=== PATIENT | female | born 1955 | race Hispanic/Latino ===

== ENCOUNTER 2018-02-23 07:55 | Inpatient (IN) | payer BC ==
[2018-02-23 08:07] VITALS: BMI 25.0
--- NOTE | 2018-02-23 08:50 | ED PDOC ---
Arrival/HPI - General Chief Complaint: High Blood Sugar Time Seen by Provider: 02/23/18 08:21 Historian: Patient - History of Present Illness Narrative History of Present Illness (Text): 02/23/18 08:35 62 year old female, whose PMH includes diabetes type I, and DKA, who presents to the emergency department complaining of DKA diagnosed by cruise ship medics prior to arrival. Patient reports taking her own insulin one day ago and states being pale, with nausea and intermittent dark brown vomiting. Patient denies chest pain, shortness of breath, fever, diarrhea, abdominal pain, dizziness, or other complaints. Additionally, she states her symptoms have improved compared to one day ago. Time/Duration: 24 hours Symptom Onset: Sudden Symptom Course: Improving Past Medical History - Provider Review Nursing Documentation Reviewed: Yes - Cardiac Hx Cardiac Disorders: No - Pulmonary Hx Respiratory Disorders: No - Neurological Hx Neurological Disorder: No - HEENT Hx HEENT Disorder: No - Renal Hx Renal Disorder: No - Endocrine/Metabolic Hx Diabetes Mellitus Type 1: Yes Other/Comment: DKA - Hematological/Oncological Hx Blood Disorders: No - Integumentary Hx Dermatological Disorder: No - Musculoskeletal/Rheumatological Hx Musculoskeletal Disorders: No - Gastrointestinal Hx Gastrointestinal Disorders: No - Genitourinary/Gynecological Hx Genitourinary Disorders: No - Psychiatric Hx Psychophysiologic Disorder: No Hx Substance Use: No - Surgical History Other/Comment: OOphorectomy left. - Anesthesia Hx Anesthesia: No Family/Social History - Physician Review Nursing Documentation Reviewed: Yes Family/Social History: Unknown Family HX Smoking Status: Never Smoked Hx Alcohol Use: No Hx Substance Use: No Allergies/Home Meds Allergies/Adverse Reactions: Allergies No Known Allergies Allergy (Verified 02/23/18 08:10) Home Medications: Home Meds Medication Instructions Recorded Confirmed Insulin Glargine, Recombina 0 unit SC DAILY 02/23/18 02/23/18 [Lantus] Insulin Lispro [humALOG] 0 unit SC DAILY 02/23/18 02/23/18 Ramipril [Altace] 0 mg PO DAILY 02/23/18 02/23/18 diltiaZEM [Cardizem] 0 mg PO DAILY 02/23/18 02/23/18 Review of Systems - Physician Review All systems were reviewed & negative as marked: Yes - Review of Systems Constitutional: absent: Fevers Respiratory: absent: SOB Gastrointestinal: Nausea, Vomiting Skin: Other (pale ) Physical Exam - Physical Exam Narrative Physical Exam (Text): 02/23/18 Gen: VS reviewed, alert, well developed, well nourished, nontoxic, mild distress. ENT: (+) dry mucous membrane. normal pharynx. Eye: EOMI, PERRL. Neck: no JVD, supple, no adenopathy. CV: regular rate, regular rhythm, no rubs, no murmur, no gallops, S1, S2, pulses equal and strong. Pulm: no distress, clear to auscultation, no wheeze, no rhonchi, breath sounds equal, no rales. Abd: soft, nontender, no guarding, no rebound, no rigidity, normal bowel sounds. Ext: no edema. Skin: good color, no rash, no cyanosis. Psych: responds appropriately to questions, normal affect. Neuro: oriented x 3, CN2-12 intact grossly, motor intact, sensation intact. Vital Signs Reviewed: Yes Vital Signs Temp Pulse Resp BP Pulse Ox 02/23/18 10:39 102 H 18 117/55 L 98 02/23/18 08:07 99.0 F 101 H 19 131/70 98 Temperature: Afebrile Blood Pressure: Normal Pulse: Tachycardic Respiratory Rate: Normal Appearance: Positive for: Well-Appearing, Non-Toxic, Comfortable Pain Distress: None Mental Status: Positive for: Alert and Oriented X 3 Finger Stick Blood Glucose: 188 Medical Decision Making ED Course and Treatment: 02/23/18 Impression: 62 year old female with dry mucous membrane complaining of vomiting and DKA symptoms. Differential Diagnosis included but are not limited to: DKA Plan: -- Labs -- Urinalysis -- Reassess and disposition Progress Notes: 02/23/18 11:30 Chest X-ray: FINDINGS: LINES AND TUBES: None. LUNG AND PLEURA: The lungs are hyperinflated. There is mild peribronchial thickening and streaky opacities in the lungs. No pleural effusion or pneumothorax. HEART AND MEDIASTINUM: The heart is not enlarged. The hilar and mediastinal contours are within normal limits. SKELETAL STRUCTURES: The bony structures are within normal limits for the patient's age. VISUALIZED UPPER ABDOMEN: Normal. OTHER FINDINGS: None. IMPRESSION: No active pulmonary disease. COPD. 02/23/18 11:[address] turk, patient to be admitted for ivf, mild dehydration, persistent tachycardia, presumed new lbbb but no cardiopulmonary symptoms. patient did have a lbbb on ekg during cruise with a negative troponin. - Lab Interpretations Lab Results: 02/23/18 09:02 02/23/18 09:02 Lab Results 02/23/18 09:05: pCO2 31 L, pO2 70.0 L, HCO3 17.5 L, ABG pH 7.36, ABG Total CO2 18.5 L, ABG O2 Saturation 96.7, ABG O2 Content 13.9 L, ABG Base Excess -7.0 L, ABG Hemoglobin 10.4 L, ABG Carboxyhemoglobin 1.4, POC ABG HHb (Measured) 3.2, ABG Methemoglobin 1.0, ABG O2 Capacity 14.4 L, Hgb O2 Saturation 94.5 L, FiO2 21.0 02/23/18 09:02: Sodium 141, Potassium 4.0, Chloride 110 H, Carbon Dioxide 17 L, Anion Gap 18, BUN 13, Creatinine 0.5 L, Est GFR ( Amer) > 60, Est GFR ( Non-Af Amer) > 60, Random Glucose 188 H, Calcium 7.9 L, Total Bilirubin 0.4, AST 18, ALT 24, Alkaline Phosphatase 58, Total Protein 6.3, Albumin 3.5, Globulin 2.7, Albumin/Globulin Ratio 1.3 02/23/18 09:02: Urine Color Light yellow, Urine Appearance Clear, Urine pH 6.0, Ur Specific [place] 1.025, Urine Protein Negative, Urine Glucose (UA) >=1000, Urine Ketones >=80, Urine Blood Negative, Urine Nitrate Negative, Urine Bilirubin Negative, Urine Urobilinogen 0.2, Ur Leukocyte Esterase Negative 02/23/18 09:02: WBC 15.0 H, RBC 3.60, Hgb 10.5 L, Hct 31.9 L, MCV 88.6, MCH 29.2 , MCHC 32.9, RDW 13.8, Plt Count 149, MPV 12.1 H, Gran % 89.1 H, Lymph % (Auto) 7.3 L, [place] % (Auto) 3.5, Eos % (Auto) 0.0 L, Baso % (Auto) 0.1, Gran # 13.36 H , Lymph # (Auto) 1.1 L, [place] # (Auto) 0.5, Eos # (Auto) 0.0, Baso # (Auto) 0.02 02/23/18 08:00: POC Glucose (mg/dL) 188 H I have reviewed the lab results: Yes - RAD Interpretation Radiology Orders: 02/23/18 10:49 X-RAY [CHEST TWO VIEWS (PA/LAT)] [RAD] Stat - EKG Interpretation EKG Interpretation (Text): 02/23/18 11:59 0820: sinus tachycardia at 107 bpm, lbbb, no ectopy 1155: sinus tachycardia at 106 bpm, lbbb, no ectopy - Medication Orders Current Medication Orders: Sodium Chloride (Sodium Chloride 0.9%) 1,000 mls @ 999 mls/hr IV .[id number] STA Stop: 02/23/18 12:52 - Scribe Statement The provider has reviewed the documentation as recorded by the Scribe Brandie Willis Provider Scribe Attestation: All medical record entries made by the Scribe were at my direction and personally dictated by me. I have reviewed the chart and agree that the record accurately reflects my personal performance of the history, physical exam, medical decision making, and the department course for this patient. I have also personally directed, reviewed, and agree with the discharge instructions and disposition. Disposition/Present on Arrival - Present on Arrival Any Indicators Present on Arrival: No History of DVT/PE: No History of Uncontrolled Diabetes: No Urinary Catheter: No History of Decub. Ulcer: No History Surgical Site Infection Following: None - Disposition Have Diagnosis and Disposition been Completed?: Yes Diagnosis: Dehydration Disposition: HOSPITALIZED Disposition Time: 11:53 Patient Plan: Admission Patient Problems: Current Active Problems Problem Status Onset Dehydration Acute Condition: GOOD Forms: [employer] ([place]an)
[2018-02-23 09:08] LABS: ARTERIAL BLOOD GAS HCO3 17.5 mmol/L (21-28); ARTERIAL BLOOD GAS HEMOGLOBIN 10.4 g/dL (11.7-17.4); ARTERIAL BLOOD GAS O2 CAPACITY 14.4 mL/dl (16-24); ARTERIAL BLOOD GAS O2 CONTENT 13.9 ML/dl (15-23); ARTERIAL BLOOD GAS O2 SAT 96.7 % (95-98); ARTERIAL BLOOD GAS PCO2 31 mm/Hg (35-45); ARTERIAL BLOOD GAS PH 7.36 (7.35-7.45); ARTERIAL BLOOD GAS TCO2 18.5 mmol.L (22-28)
[2018-02-23 09:19] LABS: URINE BILIRUBIN NEGATIVE (NEGATIVE); URINE BLOOD NEGATIVE (NEGATIVE); URINE GLUCOSE (UA) >=1000 mg/dL (NEGATIVE); URINE LEUKOCYTE ESTERASE NEGATIVE Leu/uL (NEGATIVE); URINE PROTEIN NEGATIVE mg/dL (<30 mg/dL); URINE UROBILINOGEN 0.2 E.U./dL (<1 E.U./dL)
[2018-02-23 09:20] LABS: URINE APPEARANCE CLEAR (CLEAR); URINE COLOR LIGHT YELLOW (YELLOW)
[2018-02-23 09:21] LABS: BASO # 0.02 K/mm3 (0.0-2.0); BASO % 0.1 % (0.0-3.0); GRAN # 13.36 (1.4-6.5); GRAN % 89.1 % (50.0-68.0); HEMOGLOBIN 10.5 g/dL (12.0-16.0); LYMPH # 1.1 (1.2-3.4); LYMPH % 7.3 % (22.0-35.0); MEAN CELL VOLUME 88.6 fl (80.0-105.0); MEAN CORPUSCULAR HEMOGLOBIN 29.2 pg (25.0-35.0); MEAN CORPUSCULAR HGB CONC 32.9 g/dl (31.0-37.0); MEAN PLATELET VOLUME 12.1 fl (7.0-11.0); MONO # 0.5 (0.1-0.6); MONO % 3.5 % (1.0-6.0); RBC 3.6 10^6/uL (3.5-6.1); RED CELL DISTRIBUTION WIDTH 13.8 % (11.5-14.5)
[2018-02-23 09:32] LABS: ALB/GLOB RATIO 1.3 (1.1-1.8); ALBUMIN 3.5 g/dL (3.0-4.8); ALT/SGPT 24 U/L (7-56); AST/SGOT 18 U/L (14-36); BLOOD UREA NITROGEN 13 mg/dL (7-21); CALCIUM 7.9 mg/dL (8.4-10.5); GFR AFRICAN-AMERICAN > 60; GFR NON-AFRICAN AMERICAN > 60
--- NOTE | 2018-02-23 11:29 | RAD ---
HISTORY: COMPARISON: No prior. TECHNIQUE: Chest PA and lateral FINDINGS: LINES AND TUBES: None. LUNG AND PLEURA: The lungs are hyperinflated. There is mild peribronchial thickening and streaky opacities in the lungs. No pleural effusion or pneumothorax. HEART AND MEDIASTINUM: The heart is not enlarged. The hilar and mediastinal contours are within normal limits. SKELETAL STRUCTURES: The bony structures are within normal limits for the patient's age. VISUALIZED UPPER ABDOMEN: Normal. OTHER FINDINGS: None. IMPRESSION: No active pulmonary disease. COPD.
[2018-02-23] MEDS ORDERED: Sodium Chloride 0.9% 1,000 ML IV STA (11:52)
[2018-02-23] MEDS ORDERED: Sodium Chloride 0.45% 1,000 ML IV SCH (12:15)
[2018-02-23] MEDS: Cefepime IV 2 gm in NS 2 GM/100 ML BAG IVPB SCH ×2 (14:55→21:25)
[2018-02-23] MEDS: Sodium Chloride 0.45% 1,000 ML IV SCH ×2 (14:56→20:53)
--- NOTE | 2018-02-23 15:06 | HP ---
HISTORY OF PRESENT ILLNESS: She is off the cruise ship. She was here in the emergency room. She came from the the cruise ship with a complaint of DKA diagnosed in the cruise ship. She is doing little bit better since the cruise ship. She is pale, little nauseousness, intermittent dark brown vomiting, but that seemed to be improved. She might have a little bit of an appetite. PAST MEDICAL HISTORY: Diabetes type 1, DKA in the past. She had an oophorectomy and the left side surgical wires. FAMILY HISTORY: Unknown family history. SOCIAL HISTORY: Never smoked. No alcohol. No drugs. ALLERGIES: NO KNOWN DRUG ALLERGIES. MEDICATIONS: She is on Lantus, Humalog, Altace and Cardizem for the blood pressure. REVIEW OF SYSTEMS: No acute vision or hearing changes. No sore throat. No chest pain. No shortness of breath. No cough. No palpitations. There is nausea and vomiting. No abdominal pain. No fevers. Skin for the most part is intact, but she is pale. PHYSICAL EXAMINATION: VITAL SIGNS: She has a 99 temperature, 102 pulse, 18 respiratory rate, 117/55 blood pressure, 98% O2 sat on room air. GENERAL: She is alert and oriented x3. Well-nourished, nontoxic, mild distress. HEENT: Throat is mildly red. Extraocular muscles are intact. Pupils are equal and reactive to light. NECK: Supple. No JVD. HEART: Regular rate. Normal S1, S2. LUNGS: Decreased breath sounds, but clear to auscultation. No wheezes. No rhonchi. No rales. ABDOMEN: Soft, nontender. Positive bowel sounds. No guarding. No rebound. No CVA tenderness at this time. EXTREMITIES: No edema. SKIN: For the most part is intact. No ulcers or rashes appreciated. NEUROLOGIC: GCS is 15. Cranial nerves II-XII grossly intact. Sensorimotor is intact. LYMPHATICS: Thyroid midline. No palpable appreciable lymphadenopathy. LABORATORY DATA AND IMAGING: She had a chest x-ray that showed clear possible COPD. She has a 15 white count elevated, 10.5 hemoglobin, 31.9 hematocrit with a 129 platelets. The blood gas showed a pO2 of 70, pH of 7.36. She has a 141 sodium, potassium 4, BUN 13, creatinine 0.5, GFR is greater than 60, sugar is 188, calcium is 7.9. Total bili is 0.4, AST is 18, ALT is 24, alk phos is 58, total protein 6.3, albumin is 2.5. Urine is clean. She will have a consult with Dr. Gutierrez, the vice president planning and Dr. Ochoa, Infectious Disease doctors. She is on IV fluids. She will have her medications back. We will check her labs tomorrow and hopefully, she will improve. She will have some Zofran, just in case she is nauseous as she can eat the food. Freya Dusty, who is from the cruise ship with DKA from the cruise ship was now finishing her improvement from that. Alberto Hernandez DO
[2018-02-23] MEDS ORDERED: Insulin Reg-MEDIUM-Coverage SC SCH (16:30)
[2018-02-23] MEDS ORDERED: Insulin Lispro 1 UNITS/0.01 ML SC SCH (16:30)
[2018-02-23] MEDS: Insulin Lispro (humaLOG) LOW Coverage SC SCH ×2 (17:27→21:22)
--- NOTE | 2018-02-23 19:32 | CARD ---
APPROVED REPORT Date of service: 02/23/2018 EKG Measurement Heart [id number] IN [id number] <Conclusion> Sinus tachycardia Left axis deviation Left bundle branch block Abnormal ECG
--- NOTE | 2018-02-23 19:46 | CARD ---
APPROVED REPORT Date of service: 02/23/2018 EKG Measurement Heart [id number] <Conclusion> Sinus tachycardia Left axis deviation Left bundle branch block Abnormal ECG
--- NOTE | 2018-02-23 20:30 | CON ---
DATE: 02/23/2018 ENDOCRINOLOGY CONSULT LOCATION: [facility], [facility]. HISTORY OF PRESENT ILLNESS: This is a 62-year-old female with known history of type 1 insulin-dependent diabetes, who was actually on the cruise ship and started having upper abdominal pain with supervening episodic vomiting episodes with nausea and dyspepsia and was evaluated by the cruise ship medical doctors to have diabetic ketoacidosis and dehydration and was referred here to [facility] for workup and management. She is being referred now also for diabetic evaluation and management. PAST MEDICAL HISTORY: As mentioned above, history of type 1 insulin-dependent diabetes, on a combination of Lantus given at bedtime with Humalog given before each meal as noted. History of hypertension and dyslipidemia. FAMILY HISTORY: Positive for hypertension and heart disease. SOCIAL HISTORY: The patient has supportive family. No known substance use. REVIEW OF SYSTEMS: As mentioned above. Admits to recent bouts of dizziness and lightheadedness, worse on the day of admission with generalized body weakness and easy fatigability and tiredness. No chest pains, palpitations, or PND. Her oral intake is variable with nausea, dyspepsia, and episodic vomiting episodes as noted. No recent alterations of bowel and urinary patterns. PHYSICAL EXAMINATION: GENERAL: Average-built female, in no apparent distress. VITAL SIGNS: Blood pressure of 150/90, pulse of 70 beats per minute and regular, temperature 98, respirations 20. Height is 5 feet 6 inches, weight is 157 pounds. HEENT: Head normocephalic. Eyes anicteric with pink conjunctivae. Funduscopy not possible at this time. Ears, nose, and throat otherwise normal. NECK: Supple. Thyroid gland is normal in size. No carotid bruits or cervical adenopathy. CARDIOPULMONARY: Some adynamic precordium. S1 and S2, rapid and regular. LUNGS: Clear to auscultation. ABDOMEN: Flat, soft with positive bowel sounds. EXTREMITIES: No peripheral edema. Pulses are +2 bilaterally. LABORATORY DATA: Chemistries showed BUN of 13. Sodium 141, potassium 4, chloride 110, CO2 is 17. Glucose is 188. Creatinine is 0.5. ASSESSMENT: This is a 62-year-old female with uncontrolled and decompensated type 1 insulin-dependent diabetes presenting here with sudden onset of episodic vomiting with nausea, dyspepsia, and upper abdominal pain and has been evaluated to be in diabetic ketoacidosis and dehydration. PLAN OF MANAGEMENT: We will initiate vigorous IV hydration at this time and the current IV fluids are running at 60 mL/hour and would increase it to 150 mL/hour to optimize her metabolic fluid and electrolyte losses thereof. She was able to tolerate lunch today. We will switch her over to a more physiologic basal and bolus insulin drug combination with Levemir to be started at 20 units subcu at bedtime daily to start tonight. We will also add Humalog given as 6 units subcu t.i.d. before meals at the very low dose and as her food intake improves, then we will titrate higher to optimize metabolic control. We will obtain serial chemistries and supplement accordingly as needed. We will also modify the coverage scale to a very low dose algorithm to obviate hypoglycemia and detailed orders have been given. We will obtain serial chemistries and supplement accordingly as needed. We will follow. Naye Gutierrez MD
[2018-02-23] MEDS ORDERED: Insulin Detemir 100 units/ml Vial (Levemir) SC SCH (22:00)
[2018-02-23] MEDS ORDERED: Pneumococcal 23-Valent Vaccine IM ONE (22:08)
[2018-02-23] MEDS: Vancomycin 1gm in NS 250ml 1 GM/250 ML BAG IVPB SCH (23:48)
[2018-02-24] MEDS: Sodium Chloride 0.45% 1,000 ML IV SCH (06:10)
[2018-02-24 06:36] LABS: BASO # 0.02 K/mm3 (0.0-2.0); BASO % 0.1 % (0.0-3.0); EOS % 0.1 % (1.5-5.0); GRAN # 15.2 (1.4-6.5); GRAN % 87.6 % (50.0-68.0); HEMOGLOBIN 11.1 g/dL (12.0-16.0); LYMPH # 1.5 (1.2-3.4); LYMPH % 8.4 % (22.0-35.0); MEAN CELL VOLUME 89.5 fl (80.0-105.0); MEAN CORPUSCULAR HEMOGLOBIN 29.2 pg (25.0-35.0); MEAN CORPUSCULAR HGB CONC 32.6 g/dl (31.0-37.0); MEAN PLATELET VOLUME 12.8 fl (7.0-11.0); MONO # 0.7 (0.1-0.6); MONO % 3.8 % (1.0-6.0); RBC 3.8 10^6/uL (3.5-6.1); RED CELL DISTRIBUTION WIDTH 14.3 % (11.5-14.5); WHITE BLOOD COUNT 17.3 10^3/ul (4.5-11.0)
[2018-02-24 07:00] LABS: ALB/GLOB RATIO 1.3 (1.1-1.8); ALBUMIN 3.7 g/dL (3.0-4.8); ALT/SGPT 24 U/L (7-56); AST/SGOT 29 U/L (14-36); BLOOD UREA NITROGEN 11 mg/dL (7-21); CALCIUM 8.2 mg/dL (8.4-10.5); GFR AFRICAN-AMERICAN > 60; GFR NON-AFRICAN AMERICAN > 60; HDL CHOLESTEROL 54 mg/dL (29-60); LIPASE < 10 U/L (23-300)
[2018-02-24 07:05] LABS: LDL CHOLESTEROL 108 mg/dL (0-129)
[2018-02-24] MEDS ORDERED: Sodium Chloride 0.45% 1,000 ML IV SCH (08:10)
[2018-02-24] MEDS: diltiaZEM 120 mg/24 Hours CD Cap PO SCH (09:24)
[2018-02-24] MEDS: Insulin Lispro 1 UNITS/0.01 ML SC SCH ×3 (09:24→19:37)
[2018-02-24] MEDS: Insulin Lispro (humaLOG) LOW Coverage SC SCH ×4 (09:26→21:39)
[2018-02-24] MEDS: Cefepime IV 2 gm in NS 2 GM/100 ML BAG IVPB SCH ×2 (09:27→22:12)
[2018-02-24] MEDS ORDERED: DILTIAZEM 120 MG PO SCH (10:00)
--- NOTE | 2018-02-24 12:14 | CP.PCM.CON ---
History of Present Illness - History of Present Illness History of Present Illness: 62 year old male with PMH of DM type I with history of Diabetic ketoacidosis was on the cruise ship when she started having nausea, vomiting bilous material , tremolousness, weakness for a day. She was attended by medical staff there and was foundto be hyperglycemic. She denies fever or chills, no diarrhea, denies animal contacts or insect bites, no headache or dizziness, no blurring of vision, no dysuria, no SOB, no cough, no sore throat. She was noted to have leukocytosis in the ED and Infectious Diseases consult is requested to further evaluate and manage. The patient is having some retrosternal discomfort from all the vomiting but now is not vomiting anymore. Review of Systems - Review of Systems All systems: reviewed and no additional remarkable complaints except (as per HPI ) Past Patient History - Past Social History Smoking Status: Never Smoked - CARDIAC Hx Cardiac Disorders: No - PULMONARY Hx Respiratory Disorders: No - NEUROLOGICAL Hx Neurological Disorder: No - HEENT Hx HEENT Problems: No - RENAL Hx Chronic Kidney Disease: No - ENDOCRINE/METABOLIC Hx Diabetes Mellitus Type 1: Yes Other/Comment: DKA - HEMATOLOGICAL/ONCOLOGICAL Hx Blood Disorders: No - INTEGUMENTARY Hx Dermatological Problems: No - MUSCULOSKELETAL/RHEUMATOLOGICAL Hx Musculoskeletal Disorders: No - GASTROINTESTINAL Hx Gastrointestinal Disorders: No - GENITOURINARY/GYNECOLOGICAL Hx Genitourinary Disorders: No - PSYCHIATRIC Hx Psychophysiologic Disorder: No Hx Substance Use: No - SURGICAL HISTORY Other/Comment: OOphorectomy left. - ANESTHESIA Hx Anesthesia: No Meds Allergies/Adverse Reactions: Allergies Allergy/AdvReac Type Severity Reaction Status Date / Time No Known Allergies Allergy Verified 02/23/18 20:12 - Medications Medications: Current Medications Diltiazem HCl (Cardizem Cd) 120 mg PO DAILY [facility] Sodium Chloride (Sodium Chloride 0.45%) 1,000 mls @ 60 mls/hr IV .[id number] [facility] Last Admin: 02/23/18 12:25 Dose: 60 mls/hr Insulin Human Regular (Humulin R Med) 0 units SC ACHS [facility] PRN Reason: Protocol Ondansetron HCl (Zofran Inj) 4 mg IVP Q6 PRN PRN Reason: Nausea/Vomiting Ramipril (Altace) 1.25 mg PO DAILY [facility] Physical Exam - Constitutional Appears: Non-toxic - Head Exam Head Exam: NORMAL INSPECTION - ENT Exam ENT Exam: Mucous Membranes Moist - Neck Exam Neck exam: Negative for: Meningismus - Respiratory Exam Respiratory Exam: absent: Rales, Rhonchi - Cardiovascular Exam Cardiovascular Exam: +S1, +S2 - GI/Abdominal Exam GI & Abdominal Exam: Soft. absent: Tenderness Results - Vital Signs Recent Vital Signs: Last Vital Signs Temp 99.0 F 02/23/18 08:07 Pulse 102 H 02/23/18 10:39 Resp 18 02/23/18 10:39 BP 117/55 L 02/23/18 10:39 Pulse Ox 98 02/23/18 10:39 - Labs Result Diagrams: 02/24/18 05:45 02/24/18 05:45 Assessment & Plan - Assessment and Plan (Free Text) Plan: Assessment systemic inflammatory response syndrome probably due hyperglycemia R/O DKA in this patient with DM type I with history of Diabetic ketoacidosis, R/O infection Plan started Vancomycin and cefepime pending blood, urine cx; CXR is negative, PCT is elevated but so far no source of infection noted will monitor clinically and trend blood glucose levels and WBC count discussed with Dr. Hernandez
[2018-02-24] MEDS: Vancomycin 1gm in NS 250ml 1 GM/250 ML BAG IVPB SCH (13:21)
--- NOTE | 2018-02-24 13:44 | CP.PCM.CON ---
<HelioLenmaurilio - Last Filed: 02/24/18 13:39> History of Present Illness - History of Present Illness History of Present Illness: PGY-4 GI Fellow Consult Note Mrs. Montano is a 62 yo WF with DM1 admitted for DKA. GI consulted for nausea and vomiting. Pt states that whenever she is in DKA she frequently has severe N /V. She states symptoms seem to be lingering on longer than before. States emesis is usually consisting of PO intake or occasionally green. Denies any bloody or bilious emesis. States she has bowel movements and continues to pass gas. Has been on ondansetron and metoclopramide to help with symptoms. Denies any melena, hematochezia and states that she has never had any endoscopies before. 12 point ROS negative other than stated above MHx: DM1 SurgHx: Csection Meds: lantus, humalog, cardizem FamHx: Denied h/o gi problems/ca SocHx: Denied tob, etoh, ill All: NKDA Past Patient History - Past Social History Smoking Status: Never Smoked - CARDIAC Hx Cardiac Disorders: No - PULMONARY Hx Respiratory Disorders: No - NEUROLOGICAL Hx Neurological Disorder: No - HEENT Hx HEENT Problems: No - RENAL Hx Chronic Kidney Disease: No - ENDOCRINE/METABOLIC Hx Diabetes Mellitus Type 1: Yes Other/Comment: DKA - HEMATOLOGICAL/ONCOLOGICAL Hx Blood Disorders: No - INTEGUMENTARY Hx Dermatological Problems: No - MUSCULOSKELETAL/RHEUMATOLOGICAL Hx Musculoskeletal Disorders: No - GASTROINTESTINAL Hx Gastrointestinal Disorders: No - GENITOURINARY/GYNECOLOGICAL Hx Genitourinary Disorders: No - PSYCHIATRIC Hx Psychophysiologic Disorder: No Hx Substance Use: No - SURGICAL HISTORY Other/Comment: OOphorectomy left. - ANESTHESIA Hx Anesthesia: No Meds Allergies/Adverse Reactions: Allergies Allergy/AdvReac Type Severity Reaction Status Date / Time No Known Allergies Allergy Verified 02/23/18 20:12 - Medications Medications: Current Medications Diltiazem HCl (Cardizem Cd) 120 mg PO DAILY [facility] Last Admin: 02/24/18 09:24 Dose: 120 mg Cefepime HCl (Maxipime 2gm) 2 gm in 100 mls @ 100 mls/hr IVPB Q12 [facility] PRN Reason: Protocol Stop: 02/28/18 12:46 Last Admin: 02/24/18 09:27 Dose: 100 mls/hr Vancomycin HCl (Vancomycin 1gm) 1 gm in 250 mls @ 167 mls/hr IVPB Q12H [facility] PRN Reason: Protocol Last Admin: 02/24/18 13:21 Dose: 167 mls/hr Sodium Chloride (Sodium Chloride 0.45%) 1,000 mls @ 200 mls/hr IV .Q5H [facility] Last Admin: 02/24/18 13:30 Dose: 200 mls/hr Insulin Detemir (Levemir) 24 unit SC [facility] Insulin Human Lispro (Humalog Low) 0 units SC [facility] PRN Reason: Protocol Last Admin: 02/24/18 13:20 Dose: Not Given Insulin Human Lispro (Humalog) 10 units SC AC [facility] Last Admin: 02/24/18 13:18 Dose: Not Given Metoclopramide HCl (Reglan) 10 mg IVP ACHS [facility] Last Admin: 02/24/18 11:02 Dose: 10 mg Metoprolol Tartrate (Lopressor) 12.5 mg PO BRKDIN [facility] Ondansetron HCl (Zofran Inj) 4 mg IVP Q6 PRN PRN Reason: Nausea/Vomiting Last Admin: 02/23/18 19:59 Dose: 4 mg Ramipril (Altace) 1.25 mg PO DAILY [facility] Last Admin: 02/24/18 09:23 Dose: 1.25 mg Physical Exam - Constitutional Appears: Well, Non-toxic, No Acute Distress - Head Exam Head Exam: ATRAUMATIC, NORMAL INSPECTION - Eye Exam Eye Exam: EOMI. absent: Conjunctival injection, Scleral icterus - ENT Exam ENT Exam: Mucous Membranes Moist, Normal External Ear Exam - Respiratory Exam Respiratory Exam: Clear to Auscultation Bilateral, NORMAL BREATHING PATTERN. absent: Accessory Muscle Use - Cardiovascular Exam Cardiovascular Exam: REGULAR RHYTHM. absent: JVD - GI/Abdominal Exam GI & Abdominal Exam: Normal Bowel Sounds, Soft. absent: Distended, Firm, Rigid , Tenderness - Rectal Exam Rectal Exam: Deferred - Extremities Exam Extremities exam: Positive for: normal inspection. Negative for: pedal edema - Neurological Exam Neurological exam: Alert, CN II-XII Intact, Oriented x3 - Psychiatric Exam Psychiatric exam: Normal Affect, Normal Mood - Skin Skin Exam: Intact, Normal Color Results - Vital Signs Recent Vital Signs: Last Vital Signs Temp 97.7 F 02/24/18 06:00 Pulse 108 H 02/24/18 10:00 Resp 20 02/24/18 06:00 BP 137/76 02/24/18 09:23 Pulse Ox 97 02/24/18 06:00 - Labs Result Diagrams: 02/24/18 05:45 02/24/18 05:45 Labs: Laboratory Results - last 24 hr 02/23/18 02/23/18 02/23/18 13:56 16:41 21:13 WBC RBC Hgb Hct MCV MCH MCHC RDW Plt Count MPV Gran % Lymph % (Auto) [place] % (Auto) Eos % (Auto) Baso % (Auto) Gran # Lymph # (Auto) [place] # (Auto) Eos # (Auto) Baso # (Auto) Sodium Potassium Chloride Carbon Dioxide Anion Gap BUN Creatinine Est GFR ( Amer) Est GFR (Non-Af Amer) POC Glucose (mg/dL) 195 H 312 H Random Glucose Hemoglobin A1c Calcium Total Bilirubin AST ALT Alkaline Phosphatase Total Protein Albumin Globulin Albumin/Globulin Ratio Triglycerides Cholesterol LDL Cholesterol Direct HDL Cholesterol Lipase Procalcitonin 2.95 H TSH 3rd Generation Cortisol AM Sample 02/24/18 02/24/18 02/24/18 02:08 05:45 05:45 WBC 17.3 H RBC 3.80 Hgb 11.1 L Hct 34.0 L MCV 89.5 MCH 29.2 MCHC 32.6 RDW 14.3 Plt Count 185 MPV 12.8 H Gran % 87.6 H Lymph % (Auto) 8.4 L [place] % (Auto) 3.8 Eos % (Auto) 0.1 L Baso % (Auto) 0.1 Gran # 15.20 H Lymph # (Auto) 1.5 [place] # (Auto) 0.7 H Eos # (Auto) 0.0 Baso # (Auto) 0.02 Sodium 139 Potassium 5.0 Chloride 109 H Carbon Dioxide 13 L Anion Gap 22 H BUN 11 Creatinine 0.6 L Est GFR ( Amer) > 60 Est GFR (Non-Af Amer) > 60 POC Glucose (mg/dL) 241 H Random Glucose 235 H Hemoglobin A1c Calcium 8.2 L Total Bilirubin 0.6 AST 29 ALT 24 Alkaline Phosphatase 67 Total Protein 6.6 Albumin 3.7 Globulin 2.9 Albumin/Globulin Ratio 1.3 Triglycerides 106 Cholesterol 189 LDL Cholesterol Direct 108 HDL Cholesterol 54 Lipase < 10 L Procalcitonin TSH 3rd Generation Cortisol AM Sample 02/24/18 02/24/18 02/24/18 05:45 05:45 05:45 WBC RBC Hgb Hct MCV MCH MCHC RDW Plt Count MPV Gran % Lymph % (Auto) [place] % (Auto) Eos % (Auto) Baso % (Auto) Gran # Lymph # (Auto) [place] # (Auto) Eos # (Auto) Baso # (Auto) Sodium Potassium Chloride Carbon Dioxide Anion Gap BUN Creatinine Est GFR ( Amer) Est GFR (Non-Af Amer) POC Glucose (mg/dL) Random Glucose Hemoglobin A1c 10.1 H Calcium Total Bilirubin AST ALT Alkaline Phosphatase Total Protein Albumin Globulin Albumin/Globulin Ratio Triglycerides Cholesterol LDL Cholesterol Direct HDL Cholesterol Lipase Procalcitonin TSH 3rd Generation 0.67 Cortisol AM Sample 29.8 H 02/24/18 02/24/18 07:39 11:42 WBC RBC Hgb Hct MCV MCH MCHC RDW Plt Count MPV Gran % Lymph % (Auto) [place] % (Auto) Eos % (Auto) Baso % (Auto) Gran # Lymph # (Auto) [place] # (Auto) Eos # (Auto) Baso # (Auto) Sodium Potassium Chloride Carbon Dioxide Anion Gap BUN Creatinine Est GFR ( Amer) Est GFR (Non-Af Amer) POC Glucose (mg/dL) 211 H 152 H Random Glucose Hemoglobin A1c Calcium Total Bilirubin AST ALT Alkaline Phosphatase Total Protein Albumin Globulin Albumin/Globulin Ratio Triglycerides Cholesterol LDL Cholesterol Direct HDL Cholesterol Lipase Procalcitonin TSH 3rd Generation Cortisol AM Sample Assessment & Plan - Assessment and Plan (Free Text) Assessment: 62 yo female with DM1 admitted for DKA, GI consulted for N/V. # Nausea and vomiting: Likely due to DKA. Pt with strong h/o DKA associated N/ V. No imaging, but agree none is warranted at this time as abd soft and passing gas. Suspect continuing to treat DKA with eventually resolve symptoms. Plan: - Cont to treat DKA as you are - Cont ondansetron, can increased frequency --- If prolong use, would periodically monitor QTC - Cautious metoclopramide use - Consider discontinuing antibiotics as could worsen N/V and lead to further GI complications Thank you for the consult, will follow. Pt seen and staffed with Dr. Stahl. <Emigdio Stahl Y - Last Filed: 02/24/18 14:08> Meds - Medications Medications: Current Medications Diltiazem HCl (Cardizem Cd) 120 mg PO DAILY [facility] Last Admin: 02/24/18 09:24 Dose: 120 mg Cefepime HCl (Maxipime 2gm) 2 gm in 100 mls @ 100 mls/hr IVPB Q12 [facility] PRN Reason: Protocol Stop: 02/28/18 12:46 Last Admin: 02/24/18 09:27 Dose: 100 mls/hr Vancomycin HCl (Vancomycin 1gm) 1 gm in 250 mls @ 167 mls/hr IVPB Q12H [facility] PRN Reason: Protocol Last Admin: 02/24/18 13:21 Dose: 167 mls/hr Sodium Chloride (Sodium Chloride 0.45%) 1,000 mls @ 200 mls/hr IV .Q5H [facility] Last Admin: 02/24/18 13:30 Dose: 200 mls/hr Insulin Detemir (Levemir) 24 unit SC HS [facility] Insulin Human Lispro (Humalog Low) 0 units SC ACHS [facility] PRN Reason: Protocol Last Admin: 02/24/18 13:20 Dose: Not Given Insulin Human Lispro (Humalog) 10 units SC AC [facility] Last Admin: 02/24/18 13:18 Dose: Not Given Metoclopramide HCl (Reglan) 10 mg IVP ACHS [facility] Last Admin: 02/24/18 11:02 Dose: 10 mg Metoprolol Tartrate (Lopressor) 12.5 mg PO BRKDIN [facility] Ondansetron HCl (Zofran Inj) 4 mg IVP Q6 PRN PRN Reason: Nausea/Vomiting Last Admin: 02/23/18 19:59 Dose: 4 mg Ramipril (Altace) 1.25 mg PO DAILY [facility] Last Admin: 02/24/18 09:23 Dose: 1.25 mg Results - Vital Signs Recent Vital Signs: Last Vital Signs Temp 97.7 F 02/24/18 06:00 Pulse 108 H 02/24/18 10:00 Resp 20 02/24/18 06:00 BP 137/76 02/24/18 09:23 Pulse Ox 97 02/24/18 06:00 - Labs Result Diagrams: 02/24/18 05:45 02/24/18 05:45 Labs: Laboratory Results - last 24 hr 02/23/18 02/23/18 02/23/18 13:56 16:41 21:13 WBC RBC Hgb Hct MCV MCH MCHC RDW Plt Count MPV Gran % Lymph % (Auto) [place] % (Auto) Eos % (Auto) Baso % (Auto) Gran # Lymph # (Auto) [place] # (Auto) Eos # (Auto) Baso # (Auto) Sodium Potassium Chloride Carbon Dioxide Anion Gap BUN Creatinine Est GFR ( Amer) Est GFR (Non-Af Amer) POC Glucose (mg/dL) 195 H 312 H Random Glucose Hemoglobin A1c Calcium Total Bilirubin AST ALT Alkaline Phosphatase Total Protein Albumin Globulin Albumin/Globulin Ratio Triglycerides Cholesterol LDL Cholesterol Direct HDL Cholesterol Lipase Procalcitonin 2.95 H TSH 3rd Generation Cortisol AM Sample 02/24/18 02/24/18 02/24/18 02:08 05:45 05:45 WBC 17.3 H RBC 3.80 Hgb 11.1 L Hct 34.0 L MCV 89.5 MCH 29.2 MCHC 32.6 RDW 14.3 Plt Count 185 MPV 12.8 H Gran % 87.6 H Lymph % (Auto) 8.4 L [place] % (Auto) 3.8 Eos % (Auto) 0.1 L Baso % (Auto) 0.1 Gran # 15.20 H Lymph # (Auto) 1.5 [place] # (Auto) 0.7 H Eos # (Auto) 0.0 Baso # (Auto) 0.02 Sodium 139 Potassium 5.0 Chloride 109 H Carbon Dioxide 13 L Anion Gap 22 H BUN 11 Creatinine 0.6 L Est GFR ( Amer) > 60 Est GFR (Non-Af Amer) > 60 POC Glucose (mg/dL) 241 H Random Glucose 235 H Hemoglobin A1c Calcium 8.2 L Total Bilirubin 0.6 AST 29 ALT 24 Alkaline Phosphatase 67 Total Protein 6.6 Albumin 3.7 Globulin 2.9 Albumin/Globulin Ratio 1.3 Triglycerides 106 Cholesterol 189 LDL Cholesterol Direct 108 HDL Cholesterol 54 Lipase < 10 L Procalcitonin TSH 3rd Generation Cortisol AM Sample 02/24/18 02/24/18 02/24/18 05:45 05:45 05:45 WBC RBC Hgb Hct MCV MCH MCHC RDW Plt Count MPV Gran % Lymph % (Auto) [place] % (Auto) Eos % (Auto) Baso % (Auto) Gran # Lymph # (Auto) [place] # (Auto) Eos # (Auto) Baso # (Auto) Sodium Potassium Chloride Carbon Dioxide Anion Gap BUN Creatinine Est GFR ( Amer) Est GFR (Non-Af Amer) POC Glucose (mg/dL) Random Glucose Hemoglobin A1c 10.1 H Calcium Total Bilirubin AST ALT Alkaline Phosphatase Total Protein Albumin Globulin Albumin/Globulin Ratio Triglycerides Cholesterol LDL Cholesterol Direct HDL Cholesterol Lipase Procalcitonin TSH 3rd Generation 0.67 Cortisol AM Sample 29.8 H 02/24/18 02/24/18 07:39 11:42 WBC RBC Hgb Hct MCV MCH MCHC RDW Plt Count MPV Gran % Lymph % (Auto) [place] % (Auto) Eos % (Auto) Baso % (Auto) Gran # Lymph # (Auto) [place] # (Auto) Eos # (Auto) Baso # (Auto) Sodium Potassium Chloride Carbon Dioxide Anion Gap BUN Creatinine Est GFR ( Amer) Est GFR (Non-Af Amer) POC Glucose (mg/dL) 211 H 152 H Random Glucose Hemoglobin A1c Calcium Total Bilirubin AST ALT Alkaline Phosphatase Total Protein Albumin Globulin Albumin/Globulin Ratio Triglycerides Cholesterol LDL Cholesterol Direct HDL Cholesterol Lipase Procalcitonin TSH 3rd Generation Cortisol AM Sample Attending/Attestation - Attestation I have personally seen and examined this patient.: Yes I have fully participated in the care of the patient.: Yes I have reviewed all pertinent clinical information: Yes Notes (Text): 02/24/18 14:04 I have seen and examined patient with GI fellow. Agree with above documentation with the following additions. In brief, this is a 62 year old female with history of DM who was sent [place] cruise ship to hospital for further management of suspected diabetic ketoacidosis. Her symptoms began while on the ship two days ago and was associated with nausea and non-bloody emesis. She describes mild epigastric 3/10 intensity pain which is non-radiating, believed to be related to her vomiting. She otherwise denies fever/chills, weight loss, rectal bleeding, or change in bowel habits. She has had similar prior episodes before during periods of DKA. No prior endoscopic evaluation. Additional physical examination: Abdomen: no palpable hepato/splenomegaly DKA Abdominal pain, nausea, vomiting - Clear liquid diet as tolerated - Leukocytosis likely related to DKA, no clear indication for antibiotic therapy which may actually worsen nausea/vomiting - Obtain blood/urine cultures - Continue with supportive therapy, anti-emetic therapy PRN - Follow up endocrine recommendations - Will continue to monitor patient clinical course. She would benefit from routine outpatient age appropriate screening colonoscopy.
--- NOTE | 2018-02-24 14:20 | PN ---
DATE: 02/24/2018 ENDOCRINOLOGY FOLLOWUP LOCATION: In room 365. SUBJECTIVE: This is a 62-year-old female with known history of type 1 insulin-dependent diabetes, presenting here from a cruise vacation with intractable vomiting episodes and upper abdominal pain and is now being followed closely for metabolic management. Her oral intake remains very poor and suboptimal at this time with persistent nausea and dyspepsia as noted. Her glucose levels are fluctuating and have ranged from 211 to 241 mg/dL. It was 312 at bedtime last night. The chemistries today showed a BUN of 11. Sodium 139, potassium 5, chloride 109, CO2 is 13. Glucose is 235. Creatinine is 0.6. The anion gap is 22. ASSESSMENT: This is a 62-year-old female with uncontrolled and decompensated type 1 insulin-dependent diabetes, presenting here with intractable vomiting and upper abdominal pain and evaluated to be in diabetic ketoacidosis and dehydration with also a component of the so-called starvation ketosis because the patient has not had any oral intake for the last 48 hours or so. PLAN OF MANAGEMENT: We will increase the vigorous IV hydration with normal saline to be given at 200 mL/hour as ordered today this morning. We will obtain serial chemistries and supplement accordingly as needed. We will also modify her current basal and bolus insulin regimen and increase the Humalog to 10 units subcu t.i.d. before meals to start today. We will also increase the basal insulin with Levemir to be given as 24 units subcu at bedtime daily as given. We will titrate incrementally as indicated to optimize metabolic control. We will obtain serial chemistries and supplement accordingly needed. We will follow. Naye Gutierrez MD
--- NOTE | 2018-02-24 15:51 | PN ---
DATE: 02/24/2018 SUBJECTIVE: She was not feeling that great this morning. She could not eat, not hungry. Just overall feeling off. She has had DKA before and she is from the cruise ship and she has no appetite. She is currently on IV fluids, Altace, Cardizem, insulin coverage, Levemir. She is on Maxipime 2 g by ID. Reglan is helping her more than the Zofran and vancomycin. PHYSICAL EXAMINATION: VITAL SIGNS: She has 97,7 temperature, 114 pulse, 137/76 blood pressure, 20 respiratory rate, 97% O2 sat on oxygen. HEENT: Head is atraumatic, normocephalic. HEART: Tachy, but regular. LUNGS: Decreased breath sounds, but clear. ABDOMEN: Mild discomfort. No guarding. No rebound. Decreased bowel sounds were present and soft. EXTREMITIES: No edema. LABORATORY DATA AND IMAGING: She has 17.3 white count, it is coming up. Hemoglobin 11.1, hematocrit 34 with platelet 285. She has sodium 139, potassium 5, BUN is 11, creatinine 0.6, GFR is greater than 60, last blood sugar was 211, calcium was 8.2, total bili is 0.6, AST is 29, ALT is 24, alkaline phosphatase is 67, total protein is 6.6, albumin is 3.7, globulin 2.9, triglycerides 106, cholesterol is 189, TSH is 0.67. Urine was clear. ASSESSMENT AND PLAN: She was consulted with Endocrine and GI. I think I am going to add a little bit of metoprolol for the elevated pulse. If I cannot get it down, I will call in Cardiology. I think she is very stressed and she is in diabetic ketoacidosis still, also now with systemic inflammatory response syndrome with elevated white count. Alberto Hernandez DO
[2018-02-24] MEDS ORDERED: Alum-Mag Hydrox-Simethicone Susp (30 mL) PO ONE (15:56)
[2018-02-24] MEDS ORDERED: Dextrose 50% SYRINGE Inj (50 ml) IV PRN (16:55)
[2018-02-24] MEDS ORDERED: Dextrose 5%/0.45% NS 1,000 ML IV SCH (17:00)
[2018-02-24] MEDS: Dextrose 5%/0.9% NS 1,000 ML IV SCH ×2 (18:07→23:58)
[2018-02-24 20:01] LABS: BLOOD UREA NITROGEN 10 mg/dL (7-21); CALCIUM 8.2 mg/dL (8.4-10.5); GFR AFRICAN-AMERICAN > 60; GFR NON-AFRICAN AMERICAN > 60
[2018-02-24] MEDS ORDERED: Insulin Detemir 100 units/ml Vial (Levemir) SC SCH ×2 (22:00)
[2018-02-25] MEDS ORDERED: Pantoprazole 40 mg EC Tab PO SCH (06:00)
[2018-02-25 06:31] LABS: ALB/GLOB RATIO 1.2 (1.1-1.8); ALBUMIN 3.3 g/dL (3.0-4.8); ALT/SGPT 22 U/L (7-56); AST/SGOT 21 U/L (14-36); BLOOD UREA NITROGEN 7 mg/dL (7-21); CALCIUM 7.9 mg/dL (8.4-10.5); GFR AFRICAN-AMERICAN > 60; GFR NON-AFRICAN AMERICAN > 60
[2018-02-25 06:33] LABS: MEAN CELL VOLUME 86.6 fl (80.0-105.0); MEAN CORPUSCULAR HEMOGLOBIN 28.4 pg (25.0-35.0); MEAN CORPUSCULAR HGB CONC 32.8 g/dl (31.0-37.0); MEAN PLATELET VOLUME 12.1 fl (7.0-11.0); RBC 3.87 10^6/uL (3.5-6.1)
--- NOTE | 2018-02-25 07:07 | CP.PCM.PN ---
Subjective - Date & Time of Evaluation Date of Evaluation: 02/25/18 Time of Evaluation: 06:58 - Subjective Subjective: Patient seen and examined. No acute events overnight, she is seen resting in bed comfortably. She notes one episode of scant emesis at 6 pm yesterday, none since. She also endorses mild LUQ abdominal pain but denies fever/chills. Tolerating PO liquids without difficulty. 12 point review of systems performed, negative aside from mentioned above. Objective - Vital Signs/Intake and Output Vital Signs (last 24 hours): Temp Pulse Resp BP Pulse Ox 98.0 F 98 H 20 121/70 97 02/24/18 17:48 02/25/18 06:00 02/24/18 17:48 02/24/18 17:48 02/24/18 17:48 Intake and Output: 02/24/18 02/25/18 18:59 06:59 Intake Total 0 Balance 0 - Medications Medications: Current Medications Dextrose (Dextrose 50% Inj) 0 ml IV STAT PRN; Protocol PRN Reason: Hypoglycemia Protocol Diltiazem HCl (Cardizem Cd) 120 mg PO DAILY [facility] Last Admin: 02/24/18 09:24 Dose: 120 mg Cefepime HCl (Maxipime 2gm) 2 gm in 100 mls @ 100 mls/hr IVPB Q12 [facility] PRN Reason: Protocol Stop: 02/28/18 12:46 Last Admin: 02/24/18 22:12 Dose: 100 mls/hr Vancomycin HCl (Vancomycin 1gm) 1 gm in 250 mls @ 167 mls/hr IVPB Q12H [facility] PRN Reason: Protocol Last Admin: 02/24/18 13:21 Dose: 167 mls/hr Dextrose/Sodium Chloride (Dextrose 5%/0.9% Ns 1000 Ml) 1,000 mls @ 200 mls/hr IV .Q5H [facility] Last Admin: 02/24/18 23:58 Dose: 200 mls/hr Insulin Detemir (Levemir) 14 unit SC HS [facility] Last Admin: 02/24/18 22:11 Dose: 14 units Insulin Human Lispro (Humalog Low) 0 units SC ACHS [facility] PRN Reason: Protocol Last Admin: 02/24/18 21:39 Dose: Not Given Insulin Human Lispro (Humalog) 10 units SC AC [facility] Last Admin: 02/24/18 19:37 Dose: Not Given Metoclopramide HCl (Reglan) 10 mg IVP ACHS [facility] Last Admin: 02/24/18 18:04 Dose: 10 mg Metoprolol Tartrate (Lopressor) 12.5 mg PO BRKDIN [facility] Last Admin: 02/24/18 18:05 Dose: 12.5 mg Ondansetron HCl (Zofran Inj) 4 mg IVP Q4H PRN PRN Reason: Nausea/Vomiting Pantoprazole Sodium (Protonix Inj) 40 mg IVP DAILY [facility] Ramipril (Altace) 1.25 mg PO DAILY [facility] Last Admin: 02/24/18 09:23 Dose: 1.25 mg - Labs Labs: 02/25/18 06:00 02/25/18 06:00 - Constitutional Appears: Non-toxic, No Acute Distress - Head Exam Head Exam: NORMAL INSPECTION - Eye Exam Eye Exam: EOMI, Normal appearance - ENT Exam ENT Exam: Mucous Membranes Moist - Respiratory Exam Respiratory Exam: Clear to Ausculation Bilateral - Cardiovascular Exam Cardiovascular Exam: +S1, +S2 - GI/Abdominal Exam GI & Abdominal Exam: Soft, Tenderness, Normal Bowel Sounds Additional comments: LUQ tenderness to palpation, no rebound/guarding - Extremities Exam Extremities Exam: Normal Inspection - Skin Skin Exam: Dry, Intact, Normal Color, Warm Assessment and Plan - Assessment and Plan (Free Text) Assessment: DKA Abdominal pain, nausea, vomiting - resolving Plan: - Advance diet to diabetic, small frequent meals as tolerated - Anti-emetic therapy PRN - Continue with PPI therapy - No clinical indication for antibiotic therapy, would discontinue. Blood cultures negative, patient afebrile, initial leukocytosis likely secondary to DKA. - Follow up endocrine recommendations - No further planned GI interventions, will sign off case. Patient will require routine outpatient elective screening colonoscopy, office contact information provided to patient. Please reconsult as necessary, thank you.
[2018-02-25] MEDS: Insulin Lispro (humaLOG) LOW Coverage SC SCH ×4 (09:02→22:25)
[2018-02-25] MEDS ORDERED: Sodium Chloride 0.45% 1,000 ML IV SCH (10:00)
[2018-02-25] MEDS: Vancomycin 1gm in NS 250ml 1 GM/250 ML BAG IVPB SCH (10:54)
[2018-02-25] MEDS: diltiaZEM 120 mg/24 Hours CD Cap PO SCH (10:55)
[2018-02-25] MEDS: Cefepime IV 2 gm in NS 2 GM/100 ML BAG IVPB SCH (10:56)
--- NOTE | 2018-02-25 11:30 | PN ---
DATE: 02/25/2018 ENDOCRINOLOGY FOLLOWUP LOCATION: In room 365. SUBJECTIVE: This is a 62-year-old female with recent uncontrolled type 1 insulin-dependent diabetes presenting here with intractable vomiting and persistent nausea and dyspepsia and has improved overnight with subsidence of the vomiting episodes as noted thereof. Her oral intake remains variable with suboptimal meal portions at this time. Her glycemic levels are fluctuating, but improved, and the glucose levels overnight have ranged from 248-255 mg/dL. Her bedtime glucose was 177 as noted. Her chemistries today showed a BUN of 7, sodium 138, potassium 4.1, chloride 105, CO2 of 22, glucose 263 and creatinine 0.5. So at this time, we will modify once again her basal and bolus insulin regimen and restart her prandial or mealtime insulin regimen with Humalog to be given as 8 units subcu t.i.d. before meals to start at lunchtime today as ordered. We will titrate and increase her basal insulin with Levemir to be given as 20 units subcu at bedtime daily as given. We will also continue the low-dose correction scale using Humalog insulin as ordered. We will obtain serial chemistries and supplement accordingly as needed. We will also discontinue the dextrose in normal saline running at 200 mL/hour as she was given vigorous IV hydration yesterday with resurgence of the metabolic acidosis. However, today the metabolic acidosis has resolved and we will change IV fluids to half normal saline running at 125 mL/hour as ordered. We will obtain serial chemistries and supplement accordingly as needed. We will follow. Naye Gutierrez MD
[2018-02-25] MEDS: Insulin Lispro 1 UNITS/0.01 ML SC SCH ×2 (12:23→18:00)
--- NOTE | 2018-02-25 12:39 | CP.PCM.PN ---
Subjective - Date & Time of Evaluation Date of Evaluation: 02/24/18 Time of Evaluation: 10:50 - Subjective Subjective: No fevers, no diarrhea, feeling a little better but still with nausea and epigastric discomfort. Objective - Vital Signs/Intake and Output Vital Signs (last 24 hours): Temp Pulse Resp BP Pulse Ox 98.0 F 104 H 20 121/70 97 02/24/18 17:48 02/24/18 18:05 02/24/18 17:48 02/24/18 17:48 02/24/18 17:48 Intake and Output: 02/24/18 02/25/18 18:59 06:59 Intake Total 0 Balance 0 - Medications Medications: Current Medications Dextrose (Dextrose 50% Inj) 0 ml IV STAT PRN; Protocol PRN Reason: Hypoglycemia Protocol Diltiazem HCl (Cardizem Cd) 120 mg PO DAILY [facility] Last Admin: 02/24/18 09:24 Dose: 120 mg Cefepime HCl (Maxipime 2gm) 2 gm in 100 mls @ 100 mls/hr IVPB Q12 KARAN PRN Reason: Protocol Stop: 02/28/18 12:46 Last Admin: 02/24/18 22:12 Dose: 100 mls/hr Vancomycin HCl (Vancomycin 1gm) 1 gm in 250 mls @ 167 mls/hr IVPB Q12H KARAN PRN Reason: Protocol Last Admin: 02/24/18 13:21 Dose: 167 mls/hr Dextrose/Sodium Chloride (Dextrose 5%/0.9% Ns 1000 Ml) 1,000 mls @ 200 mls/hr IV .Q5H [facility] Last Admin: 02/24/18 18:07 Dose: 200 mls/hr Insulin Detemir (Levemir) 14 unit SC HS [facility] Last Admin: 02/24/18 22:11 Dose: 14 units Insulin Human Lispro (Humalog Low) 0 units SC ACHS KARAN PRN Reason: Protocol Last Admin: 02/24/18 21:39 Dose: Not Given Insulin Human Lispro (Humalog) 10 units SC AC [facility] Last Admin: 02/24/18 19:37 Dose: Not Given Metoclopramide HCl (Reglan) 10 mg IVP ACHS [facility] Last Admin: 02/24/18 18:04 Dose: 10 mg Metoprolol Tartrate (Lopressor) 12.5 mg PO BRKDIN [facility] Last Admin: 02/24/18 18:05 Dose: 12.5 mg Ondansetron HCl (Zofran Inj) 4 mg IVP Q4H PRN PRN Reason: Nausea/Vomiting Pantoprazole Sodium (Protonix Inj) 40 mg IVP DAILY [facility] Ramipril (Altace) 1.25 mg PO DAILY [facility] Last Admin: 02/24/18 09:23 Dose: 1.25 mg - Labs Labs: 02/24/18 05:45 02/24/18 18:35 - Constitutional Appears: Non-toxic, Chronically Ill - Head Exam Head Exam: NORMAL INSPECTION - Respiratory Exam Respiratory Exam: Decreased Breath Sounds. absent: Rales - Cardiovascular Exam Cardiovascular Exam: +S1, +S2 - GI/Abdominal Exam GI & Abdominal Exam: Soft. absent: Tenderness Assessment and Plan - Assessment and Plan (Free Text) Plan: Assessment systemic inflammatory response syndrome probably due hyperglycemia R/O DKA in this patient with DM type I with history of Diabetic ketoacidosis, with no evidence of infection Plan will d/c Vancomycin and cefepime since blood, urine cx negative, CXR is negative , PCT is elevated but no source of infection noted WBC count has also normalized discussed with Dr. Hernandez - patient to get CT A/P
--- NOTE | 2018-02-25 13:43 | PN ---
DATE: 02/25/2018 SUBJECTIVE: I saw Freya sitting up in bed. She has been throwing up all morning, cannot keep any food down, does not want to eat. She has had DKA before, but she said not this bad. [place] on [place] it started. She is on Altace, Cardizem, dextrose IV, insulin coverage, Levemir, Lopressor, Protonix IV, Reglan IV, IV fluids and Zofran. OBJECTIVE: VITAL SIGNS: She has a 98.2 temperature, 99 pulse, 145/85 blood pressure, 19 respiratory rate, 93% O2 sat on room air. HEENT: Head is atraumatic, normocephalic. HEART: Regular rate. LUNGS: Clear to auscultation. ABDOMEN: Soft. Positive bowel sounds. EXTREMITIES: No edema, but she is very nauseous. I am going to change Protonix to IV. Her white count is better at 9, hemoglobin 11, hematocrit 32.5, platelets 160. She has a 138 sodium, potassium 4.1, BUN 7, creatinine 0.5. GFR is greater than 60. Sugar is 239, 255 and 263. Calcium 7.9, total bili is 0.5, AST is 21, ALT is 22, alkaline phosphatase 62, total protein 6.1, albumin is 3.3. She has had Endocrinology and GI see her and Infectious Disease. She is not on any IV antibiotics anymore. I attempted to do a CT scan of the abdomen and pelvis and look at her belly to find out if there is anything else going on, I will order that for the persistent nausea and vomiting. We will check her labs tomorrow. Protonix, IV change that from p.o. When she could eat and feels better, we will discharge. Alberto Hernandez DO MTDD
[2018-02-25] MEDS ORDERED: Iohexol 240 (50 ml) ONE (14:52)
[2018-02-25] MEDS ORDERED: Insulin Detemir 100 units/ml Vial (Levemir) SC SCH (22:00)
[2018-02-26] MEDS ORDERED: Insulin Lispro 1 UNITS/0.01 ML SC SCH (07:30)
[2018-02-26 07:32] LABS: HEMOGLOBIN 12.4 g/dL (12.0-16.0); MEAN CELL VOLUME 85.7 fl (80.0-105.0); MEAN CORPUSCULAR HGB CONC 33.8 g/dl (31.0-37.0); MEAN PLATELET VOLUME 12.1 fl (7.0-11.0); RBC 4.28 10^6/uL (3.5-6.1); RED CELL DISTRIBUTION WIDTH 13.7 % (11.5-14.5); WHITE BLOOD COUNT 11.3 10^3/ul (4.5-11.0)
[2018-02-26 08:24] LABS: ALB/GLOB RATIO 1.2 (1.1-1.8); ALBUMIN 3.6 g/dL (3.0-4.8); ALT/SGPT 30 U/L (7-56); AST/SGOT 22 U/L (14-36); BLOOD UREA NITROGEN 6 mg/dL (7-21); CALCIUM 8.2 mg/dL (8.4-10.5); GFR AFRICAN-AMERICAN > 60; GFR NON-AFRICAN AMERICAN > 60
[2018-02-26] MEDS: Insulin Lispro (humaLOG) LOW Coverage SC SCH (08:38)
[2018-02-26] MEDS: diltiaZEM 120 mg/24 Hours CD Cap PO SCH (09:10)
--- NOTE | 2018-02-26 10:37 | PN ---
DATE: 02/26/2018 ENDOCRINOLOGY FOLLOWUP NOTE SUBJECTIVE: This is a 62-year-old female with recent uncontrolled type 1 insulin-dependent diabetes who continues to have persistent nausea, dyspepsia and episodic vomiting episodes with very nil oral intake at this time and is now being followed closely for metabolic management. She has received vigorous IV hydration as given thereof and the glucose values actually were very good last night, ranging from 100-150 mg/dl. However, the insulin regimen was held despite the order of Levemir scheduled for a dose of 20 units at bedtime last night and this was held by the staff with supervening hyperglycemic accelerations this morning as expected. Her fasting glucose was 306 mg/dl and the finger stick was 277 mg/dl. Her chemistries today showed a BUN of 6, sodium 136, potassium 3.5, chloride 97, CO2 23, glucose 306 and creatinine 0.6. So at this time, we will continue the low-dose correction scale using Humalog insulin as given. The patient has opted to use her own insulin regimen from home since we do not carry Lantus in this hospital and we have allowed it to do so, but she cannot be holding the bedtime insulin as this has cause marked hyperglycemic accelerations in the morning because even if she is not eating any fluid or has very nil oral intake, there is still ongoing liver gluconeogenesis causing fasting hyperglycemia in the morning. We will change the IV fluids to half normal saline with potassium chloride given as 20 mEq running at 125 ml/hour as ordered. We will follow this. Naye Gutierrez MD
[2018-02-26] MEDS: Sodium Chloride 0.45% 1,000 ML IV SCH (10:48)
[2018-02-26] MEDS: INSULIN LISPRO SC SCH ×3 (12:00→21:45)
[2018-02-26] MEDS: HUMALOG KWIK SC SCH ×2 (12:00→16:44)
--- NOTE | 2018-02-26 13:34 | CT ---
Date of service: 02/25/2018 PROCEDURE: CT Abdomen and Pelvis without intravenous contrast HISTORY: n/v COMPARISON: None. TECHNIQUE: Without contrast.. Contrast dose: Radiation dose: Total exam DLP = 629 mGy-cm. This CT exam was performed using one or more of the following dose reduction techniques: Automated exposure control, adjustment of the mA and/or kV according to patient size, and/or use of iterative reconstruction technique. FINDINGS: LOWER THORAX: Small bilateral pleural effusions. Bibasilar consolidation. LIVER: There is a hypodense lesion in the posterior right lobe measuring 1.9 cm. This contains a small calcification. Followup may be indicated. This most likely represents a hemangioma. GALLBLADDER AND BILE DUCTS: Unremarkable. PANCREAS: Unremarkable. No gross lesion or ductal dilatation. SPLEEN: Unremarkable. ADRENALS: Unremarkable. No mass. KIDNEYS AND URETERS: Unremarkable. No hydronephrosis. No solid mass. VASCULATURE: Unremarkable. No aortic aneurysm. BOWEL: Unremarkable. No obstruction. No gross mural thickening. APPENDIX: Unremarkable. Normal appendix. PERITONEUM: Unremarkable. No free fluid. No free air. LYMPH NODES: Unremarkable. No enlarged lymph nodes. BLADDER: Unremarkable. REPRODUCTIVE: Right ovarian cyst. Small amount of fluid in the cul-de-sac. Fibroid uterus BONES: No acute fracture. OTHER FINDINGS: The report concurs with the preliminary [facility] report IMPRESSION: Right ovarian cyst. Small amount of fluid in the cul-de-sac. Fibroid uterus No acute intra-abdominal findings
--- NOTE | 2018-02-26 15:11 | PN ---
DATE: 02/26/2018 SUBJECTIVE: I saw her sitting up in bed this morning. She is still throwing up. She cannot eat her breakfast. She tells me she thinks that the insulin that were given to her and she does not use that at home and she has many people in her family who have diabetes and very sensitive to certain insulins. If she wants to try and take her own insulin, she has never had DKA this long. I think that the reasonable thing to do will be to stop her insulins. Let her take her home medications. I am also going to decrease IV sodium, half normal from 120 down to 60. Continue the Altace and Cardizem, which she usually takes. I am going to stop the Humalog which she does not take, the Levemir that she does not take, and she can take her own insulin from home. I will continue the Lopressor, give a potassium rider, Protonix, Reglan and Zofran has as needed for the Zofran, but she knows Reglan and Protonix usually help her. We will continue that. OBJECTIVE: VITAL SIGNS: She has 98.1 temperature, 107 pulse, 131/77 blood pressure, 20 respiratory rate, 92% O2 sat. HEENT: Head is atraumatic, normocephalic. HEART: Regular rate. LUNGS: Decreased breath sounds, but clear. ABDOMEN: Soft, nontender. Positive bowel sounds, but decreased. EXTREMITIES: No edema. LABORATORY DATA: There is a CAT scan of the abdomen and pelvis that is pending. She has 11.3 white count, 12.4 hemoglobin, 36.7 hematocrit, and 176 platelets. She has 136 sodium, potassium 3.5 and I will give her potassium. BUN 6, creatinine 0.6. GFR is greater than 60. Sugar last one was 277. Calcium is 8.2. Total bili is 0.9, AST is 22, ALT is 30, and alk phos 78. Total protein 6.5. Urine was clean. Negative for legionella. Micro was all normal. She is being seen by Infectious Disease, Endocrinology, and GI. She is still throwing up as of this morning. I am hoping that if she goes back for own insulin, this will subside. When she could eat and if no more nausea and vomiting, I will discharge her, she knows that. I watch her very closely. She is here for DKA, persistent low potassium, diabetes, nausea, vomiting, SIRS. Alberto Hernandez DO MTDSobeida
--- NOTE | 2018-02-26 16:15 | CP.PCM.PN ---
Subjective - Date & Time of Evaluation Date of Evaluation: 02/26/18 Time of Evaluation: 10:55 - Subjective Subjective: Still having nausea and vomiting, no fevers. Objective - Vital Signs/Intake and Output Vital Signs (last 24 hours): Temp Pulse Resp BP Pulse Ox 97.8 F 94 H 20 136/83 97 02/25/18 17:11 02/26/18 02:00 02/25/18 17:11 02/25/18 17:59 02/25/18 17:11 Intake and Output: 02/26/18 02/26/18 06:59 18:59 Intake Total 160 Balance 160 - Medications Medications: Current Medications Dextrose (Dextrose 50% Inj) 0 ml IV STAT PRN; Protocol PRN Reason: Hypoglycemia Protocol Diltiazem HCl (Cardizem Cd) 120 mg PO DAILY [facility] Last Admin: 02/25/18 10:55 Dose: 120 mg Sodium Chloride (Sodium Chloride 0.45%) 1,000 mls @ 125 mls/hr IV .Q8H [facility] Insulin Detemir (Levemir) 20 unit SC [facility] Last Admin: 02/25/18 22:32 Dose: Not Given Insulin Human Lispro (Humalog Low) 0 units SC [facility] PRN Reason: Protocol Last Admin: 02/25/18 22:25 Dose: Not Given Insulin Human Lispro (Humalog) 6 units SC [facility] Metoclopramide HCl (Reglan) 10 mg IVP ACHS [facility] Last Admin: 02/25/18 22:03 Dose: 10 mg Metoprolol Tartrate (Lopressor) 12.5 mg PO BRKDIN [facility] Last Admin: 02/25/18 17:59 Dose: 12.5 mg Ondansetron HCl (Zofran Inj) 4 mg IVP Q4H PRN PRN Reason: Nausea/Vomiting Last Admin: 02/25/18 17:58 Dose: 4 mg Pantoprazole Sodium (Protonix Inj) 40 mg IVP DAILY [facility] Ramipril (Altace) 1.25 mg PO DAILY [facility] Last Admin: 02/25/18 10:55 Dose: 1.25 mg - Labs Labs: 02/25/18 06:00 02/25/18 06:00 - Constitutional Appears: Chronically Ill - Head Exam Head Exam: NORMAL INSPECTION - Respiratory Exam Respiratory Exam: Decreased Breath Sounds - Cardiovascular Exam Cardiovascular Exam: +S1, +S2 - GI/Abdominal Exam GI & Abdominal Exam: Soft. absent: Tenderness Assessment and Plan - Assessment and Plan (Free Text) Plan: Assessment systemic inflammatory response syndrome probably due hyperglycemia R/O DKA in this patient with DM type I with history of Diabetic ketoacidosis, with no evidence of infection Plan continue to monitor off antibiotics since blood, urine cx negative, CXR is negative, PCT is elevated but no source of infection noted reviewed CT A/P which does not show acute findings
[2018-02-26] MEDS ORDERED: LANTUS SC SCH (22:00)
[2018-02-27] MEDS: Sodium Chloride 0.45% 1,000 ML IV SCH (02:14)
[2018-02-27 06:39] LABS: HEMOGLOBIN 11.6 g/dL (12.0-16.0); MEAN CELL VOLUME 86.5 fl (80.0-105.0); MEAN CORPUSCULAR HGB CONC 33.5 g/dl (31.0-37.0); MEAN PLATELET VOLUME 12.3 fl (7.0-11.0); RED CELL DISTRIBUTION WIDTH 14.1 % (11.5-14.5); WHITE BLOOD COUNT 13.1 10^3/ul (4.5-11.0)
[2018-02-27 07:09] LABS: ALB/GLOB RATIO 1.2 (1.1-1.8); ALBUMIN 3.5 g/dL (3.0-4.8); ALT/SGPT 20 U/L (7-56); AST/SGOT 24 U/L (14-36); BLOOD UREA NITROGEN 15 mg/dL (7-21); CALCIUM 8.2 mg/dL (8.4-10.5); GFR AFRICAN-AMERICAN > 60; GFR NON-AFRICAN AMERICAN > 60
[2018-02-27] MEDS: HUMALOG KWIK PEN SC SCH ×2 (09:45→12:54)
[2018-02-27] MEDS: INSULIN LISPRO SC SCH ×3 (09:46→22:31)
[2018-02-27] MEDS: diltiaZEM 120 mg/24 Hours CD Cap PO SCH ×2 (09:46→14:40)
[2018-02-27] MEDS ORDERED: Lidocaine 1% Inj (20ml) ONE ×2 (10:09→10:12)
[2018-02-27] MEDS ORDERED: Propofol 10 mg/ml Inj (20 ML) ONE ×2 (10:10→10:17)
[2018-02-27] MEDS ORDERED: Sodium Chloride 0.9% 1,000 ML IV SCH (10:45)
[2018-02-27] MEDS ORDERED: Sodium Bicarbonate 8.4% 50 MEQ in Dextrose 5%/0.45% NS 1,000 ML IV SCH ×2 (11:45→16:29)
--- NOTE | 2018-02-27 12:43 | PN ---
DATE: 02/27/2018 ENDO FOLLOWUP NOTE LOCATION: In room 365. SUBJECTIVE: This is a 62-year-old female with recent uncontrolled type 1 insulin-dependent diabetes, who continues to have protracted nausea, dyspepsia and episodic vomiting episodes even with the resolution of her metabolic acidosis as noted yesterday. However, the IV fluids were changed and lowered by the primary physician down to 60 mL/hour from yesterday and today's chemistries showed a BUN of 15, sodium 136, potassium 4.1, chloride 104, CO2 is 13, glucose is 289 and creatinine is 0.7. Her glucose levels overnight are still elevated and ranging from 245-314 mg/dL. She really has very, very minimal oral intake at this point in time as noted and today, once again, she had another bout of vomiting and was given Zofran medication by the nursing staff. ASSESSMENT: This is a 62-year-old female with resurgence of diabetic ketoacidosis and dehydration with persistent nausea, dyspepsia and episodic vomiting episodes with still uncontrolled type 1 insulin-dependent diabetes despite the usage of both basal and bolus insulin regimen as given. PLAN OF MANAGEMENT: We will change her IV fluid hydration today to D5 and a half normal saline with 1 ampule of sodium bicarb to run at 125 mL/hour as ordered. We will obtain serial chemistries and supplement accordingly as needed. We will also modify her Humalog to a higher dose of 10 units subcu t.i.d. before meals to start today. We will continue the Lantus given also the higher dosing of 20 units subcu at bedtime daily to start tonight. We will titrate incrementally as indicated to optimize metabolic control. We will continue also the Humalog given at a very low-dose correction scale to obviate hypoglycemia and detailed orders have been given. A GI consult has been obtained also to evaluate the persistent nausea and dyspepsia and vomiting episodes thereof. We will obtain serial chemistries and supplement accordingly as needed. We will follow. Naye Gutierrez MD
--- NOTE | 2018-02-27 12:58 | PN ---
DATE: 02/27/2018 SUBJECTIVE: She had a little bit better evening. She had at least 2 or 3 hours where she felt good and thought she could drink and eat and keep down. She did keep a bottle of water down, a little apple sauce, but today, when she woke up, she was retching, dry heaves. She did not get any Zofran before that. She is on Altace, Cardizem, her own insulin now, Lopressor, Protonix, Reglan, Zofran, and IV fluids. Clinically, she looks okay. PHYSICAL EXAMINATION: VITAL SIGNS: She has a 98.5 temperature, 98 pulse, 100/60 blood pressure, 20 respiratory rate, 99% O2 sat on room air. GENERAL: She is weak. I asked her to take some Zofran this morning, drink a little apple sauce and some fluids to get started and see how she does. We are going to see how that works this morning, see if we could keep away the retching. HEAD: Atraumatic, normocephalic. THROAT: Moist. NECK: Supple. HEART: Regular rate. LUNGS: Clear to auscultation. ABDOMEN: Soft, nontender. Positive bowel sounds. The bowel sounds are distant and the stomach is empty, but there are bowel sounds. Nontender. No guarding. No rebound. No CVA tenderness. EXTREMITIES: No edema. MEDICATIONS: She is on ramipril, Cardizem, insulin, Lopressor, Protonix, and Reglan. LABORATORY DATA: She has a 13.1 white count that went up a little bit, 11.6 hemoglobin, 34.6 hematocrit with 245 platelets. Sodium 136, potassium 4.1, BUN is 15, creatinine 0.7, GFR is greater than 60, sugar is 289, calcium is 8.2. AST is 24, ALT is 20, alkaline phosphatase 81, total protein 6.3. I am going to repeat urine and maybe another blood gas. The blood cultures were normal, so was the urine. I am not sure why the white count went up. She is not on any steroid. She is being seen by Infectious Disease, carver hand, and GI. CAT scan of the abdomen and pelvis showed no acute intra-abdominal findings. Infectious Disease off antibiotics. No source of infection is noted. Hopefully, she will start to eat better today. I will check her labs again tomorrow. I discussed this with GI and Infectious Disease. GI offered her an endoscopy today. At this time, she refused. She is very nervous about that. Hopefully in the next 24 hours, she will improve. ASSESSMENT: She is here for diabetic ketoacidosis from the cruise ship, diabetes, nausea, vomiting, systemic inflammatory response syndrome, and low potassium. Alberto Hernandez DO MTDSobeida
--- NOTE | 2018-02-27 13:19 | RAD ---
Date of service: 02/27/2018 HISTORY: SOB COMPARISON: 02/23/2018 TECHNIQUE: Chest PA and lateral FINDINGS: LUNGS: No active pulmonary disease. PLEURA: No significant pleural effusion identified. No pneumothorax apparent. CARDIOVASCULAR: Normal. OSSEOUS STRUCTURES: No significant abnormalities. VISUALIZED UPPER ABDOMEN: Normal. OTHER FINDINGS: None. IMPRESSION: No active disease.
[2018-02-27] MEDS ORDERED: Levalbuterol 0.63 MG/3 ML Inhal Soln UD IH STA (14:36)
[2018-02-27 15:09] LABS: ARTERIAL BLOOD GAS HEMOGLOBIN 11.2 g/dL (11.7-17.4); ARTERIAL BLOOD GAS O2 CAPACITY 15.7 mL/dl (16-24); ARTERIAL BLOOD GAS O2 CONTENT 15.6 ML/dl (15-23); ARTERIAL BLOOD GAS O2 SAT 99.6 % (95-98); ARTERIAL BLOOD GAS PCO2 11 mm/Hg (35-45); ARTERIAL BLOOD GAS TCO2 3.2 mmol.L (22-28)
[2018-02-27 15:10] LABS: ARTERIAL BLOOD GAS HCO3 2.9 mmol/L (21-28); ARTERIAL BLOOD GAS PH 7.03 (7.35-7.45)
[2018-02-27] MEDS ORDERED: Vitamins A & D Oint UD Foilpak TOP PRN (15:45)
--- NOTE | 2018-02-27 15:52 | CP.PCM.PN ---
Subjective - Date & Time of Evaluation Date of Evaluation: 02/27/18 Time of Evaluation: 11:20 - Subjective Subjective: Patient is still feeling tired and weak, has occasional shortness of breath. Has nausea. Just had EGD done. Objective - Vital Signs/Intake and Output Vital Signs (last 24 hours): Temp Pulse Resp BP Pulse Ox 97.8 F 117 H 22 123/61 100 02/27/18 11:11 02/27/18 11:11 02/27/18 11:11 02/27/18 11:11 02/27/18 11:11 Intake and Output: 02/27/18 02/27/18 06:59 18:59 Intake Total 240 Balance 240 - Medications Medications: Current Medications Diltiazem HCl (Cardizem Cd) 120 mg PO DAILY [facility] Last Admin: 02/27/18 09:46 Dose: Not Given Fluconazole (Diflucan) 100 mg PO DAILY [facility] PRN Reason: Protocol Stop: 03/27/18 23:59 Home Med (Home Med) 10 unit SC AC [facility] Last Admin: 02/27/18 09:45 Dose: Not Given Home Med (Home Med) 24 unit SC HS [facility] Sodium Bicarbonate 50 meq/ (Dextrose/Sodium Chloride) 1,050 mls @ 125 mls/hr IV .Q8H24M [facility] Insulin Human Lispro (Humalog Low) 0 units SC [facility] PRN Reason: Protocol Last Admin: 02/27/18 09:46 Dose: Not Given Metoclopramide HCl (Reglan) 10 mg IVP ACHS [facility] Last Admin: 02/27/18 09:46 Dose: Not Given Metoprolol Tartrate (Lopressor) 12.5 mg PO BRKDIN [facility] Last Admin: 02/27/18 09:46 Dose: Not Given Ondansetron HCl (Zofran Inj) 4 mg IVP Q4H PRN PRN Reason: Nausea/Vomiting Last Admin: 02/27/18 06:27 Dose: 4 mg Pantoprazole Sodium (Protonix Ec Tab) 40 mg PO 0600,1600 [facility] Ramipril (Altace) 1.25 mg PO DAILY [facility] Last Admin: 02/27/18 09:46 Dose: Not Given - Labs Labs: 02/27/18 06:00 02/27/18 06:00 - Constitutional Appears: Chronically Ill - Head Exam Head Exam: NORMAL INSPECTION - Respiratory Exam Respiratory Exam: Decreased Breath Sounds - Cardiovascular Exam Cardiovascular Exam: +S1, +S2 - GI/Abdominal Exam GI & Abdominal Exam: Soft. absent: Tenderness Assessment and Plan - Assessment and Plan (Free Text) Plan: Assessment consider esophagitis R/O due to [place] systemic inflammatory response syndrome probably due hyperglycemia R/O DKA in this patient with DM type I with history of Diabetic ketoacidosis, with no evidence of infection Plan continue to monitor off antibiotics since blood, urine cx negative, CXR is negative, PCT is elevated but no source of bacterial infection noted reviewed EGD findings - patient has been started on Diflucan and will follow up biopsy results (from samples of esophageal and gastric tissues) reviewed CT A/P which does not show acute findings
[2018-02-27] MEDS ORDERED: Sodium Bicarbonate (8.4%) 50 Meq Syringe IVP ONE (16:20)
[2018-02-27 16:45] LABS: VENOUS BLOOD GAS BASE EXCESS -29.1 mmol/L (0.0-2.0); VENOUS BLOOD GAS PO2 116 mm/Hg (30-55)
[2018-02-27 16:49] LABS: VENOUS BLOOD PH 6.87 (7.32-7.43)
[2018-02-27 17:03] LABS: BLOOD UREA NITROGEN 20 mg/dL (7-21); CALCIUM 8.3 mg/dL (8.4-10.5); GFR AFRICAN-AMERICAN > 60; GFR NON-AFRICAN AMERICAN 51
[2018-02-27] MEDS: Pantoprazole 40 mg EC Tab PO SCH (17:10)
[2018-02-27] MEDS ORDERED: Sodium Bicarbonate 8.4% 150 MEQ in Dextrose 5% In Water 1,000 ML IV SCH (17:15)
--- NOTE | 2018-02-27 18:47 | CARD ---
APPROVED REPORT Date of service: 02/27/2018 EKG Measurement Heart [id number] ID [id number] <Conclusion> Normal sinus rhythm Left bundle branch block Abnormal ECG
[2018-02-27] MEDS ORDERED: Sodium Chloride 0.9% 1,000 ML IV STA (19:11)
--- NOTE | 2018-02-27 19:34 | US ---
HISTORY: Leg pain and swelling. Evaluate for DVT PHYSICIAN(S): Benjamin Doss MD. TECHNIQUE: Duplex sonography and color-flow Doppler with graded compression were used to evaluate the deep venous systems of both lower extremities. FINDINGS: The visualized deep venous systems of both lower extremities are sonographically normal and compressible. Normal wave forms and augmentation are seen. There is no sonographic evidence for deep venous thrombosis in the visualized segments of both lower extremities. IMPRESSION: No sonographic evidence for deep venous thrombosis in the visualized segments of both lower extremities.
[2018-02-27] MEDS: Sodium Bicarbonate 8.4% 150 MEQ in Dextrose 5% In Water 1,000 ML IV SCH (20:00)
[2018-02-27 20:23] LABS: VENOUS BLOOD GAS BASE EXCESS -27.8 mmol/L (0.0-2.0); VENOUS BLOOD GAS PO2 87 mm/Hg (30-55)
[2018-02-27 20:29] LABS: VENOUS BLOOD PH 6.91 (7.32-7.43)
[2018-02-27 20:36] LABS: CALCIUM 7.8 mg/dL (8.4-10.5)
[2018-02-27] MEDS ORDERED: LANTUS SOLOSTAR PEN SC SCH (22:00)
[2018-02-28] MEDS: Sodium Bicarbonate 8.4% 150 MEQ in Dextrose 5% In Water 1,000 ML IV SCH ×2 (01:00→05:57)
[2018-02-28 01:23] LABS: VENOUS BLOOD GAS BASE EXCESS -12.4 mmol/L (0.0-2.0); VENOUS BLOOD GAS PO2 25 mm/Hg (30-55); VENOUS BLOOD PH 7.28 (7.32-7.43)
[2018-02-28 01:28] LABS: BLOOD UREA NITROGEN 26 mg/dL (7-21); GFR AFRICAN-AMERICAN > 60; GFR NON-AFRICAN AMERICAN 51
[2018-02-28 04:38] LABS: VENOUS BLOOD GAS BASE EXCESS -3.6 mmol/L (0.0-2.0); VENOUS BLOOD GAS PO2 38 mm/Hg (30-55)
[2018-02-28 04:48] LABS: HEMOGLOBIN 10.8 g/dL (12.0-16.0); MEAN CELL VOLUME 84.3 fl (80.0-105.0); MEAN CORPUSCULAR HEMOGLOBIN 29.7 pg (25.0-35.0); MEAN CORPUSCULAR HGB CONC 35.2 g/dl (31.0-37.0); MEAN PLATELET VOLUME 11.2 fl (7.0-11.0); RBC 3.64 10^6/uL (3.5-6.1); RED CELL DISTRIBUTION WIDTH 14.1 % (11.5-14.5)
[2018-02-28 04:55] LABS: WHITE BLOOD COUNT 16.4 10^3/ul (4.5-11.0)
[2018-02-28 05:00] LABS: ALB/GLOB RATIO 1.3 (1.1-1.8); ALBUMIN 3.3 g/dL (3.0-4.8); ALT/SGPT 31 U/L (7-56); AST/SGOT 37 U/L (14-36); BLOOD UREA NITROGEN 25 mg/dL (7-21); CALCIUM 8.1 mg/dL (8.4-10.5); GFR AFRICAN-AMERICAN > 60; GFR NON-AFRICAN AMERICAN > 60
[2018-02-28] MEDS: Pantoprazole 40 mg EC Tab PO SCH ×3 (05:23→17:15)
--- NOTE | 2018-02-28 07:12 | CON ---
DATE: 02/27/2018 HISTORY OF PRESENT ILLNESS: This is a 62-year-old lady who presented 4 days ago [facility] from [place] where she experienced nausea, vomiting, tiredness and fatigue. She was found to have uncontrolled blood glucose level (she has diabetes mellitus type 1) and was found to be very dehydrated. Concern for DKA was raised and the patient was aggressively fluid resuscitated with initial improvement in blood glucose control with basal insulin supplementation. At some point, she was also started on antibiotics, however, her nausea and vomiting deteriorated and after CAT scan of the abdomen and pelvis did not reveal any intra-abdominal pathology, she was taken off of antibiotics. She had an upper endoscopy which revealed candidal esophagitis, however, no ulcers or other abnormalities that might have accounted for her nausea and vomiting. Early today, the patient was found to be in respiratory distress, tachypneic, tachycardic and highly elevated blood glucose as well as severe metabolic acidosis was found. ICU consult was called for further management and monitoring. No chest pain. No constipation, no diarrhea. PAST MEDICAL HISTORY: High blood pressure, diabetes type 1. FAMILY HISTORY: Noncontributory. SOCIAL HISTORY: No alcohol or illicit drug abuse. No tobacco smoking. CURRENT MEDICATIONS: Cardizem, Diflucan, lispro insulin, Reglan, metoprolol, Zofran p.r.n., Protonix, Altace, bicarb, vitamin A ointment. ALLERGIES: NKDA. REVIEW OF SYSTEMS: Review of 12-organ system other than mentioned in history of present illness is negative. PHYSICAL EXAMINATION: VITAL SIGNS: Blood pressure 124/61, heart rate 117, temperature 97.8, oxygen saturation 100% on 3 liters nasal cannula. ENT: Head and neck atraumatic. LUNGS: Clear to auscultation bilaterally. HEART: Regular rate and rhythm. S1, S2 normal. ABDOMEN: Soft, nontender and nondistended. MUSCULOSKELETAL: No C/C/E. NEURO: The patient moves all extremities spontaneously. SKIN: Moist. PSYCH: The patient is alert, oriented, in moderate respiratory distress due to tachypnea. LABORATORY DATA: WBC 13.1, hemoglobin 11.6, platelet count 245. Sodium 135, potassium 4.9, chloride 101, carbon dioxide 5, BUN 20, creatinine 1.1, up from 0.7. Glucose more than 500. ASSESSMENT AND PLAN: This is a 62-year-old lady with diabetic ketoacidosis, severe dehydration and metabolic acidosis. At present time, we will proceed with aggressive fluid resuscitation, including 2 liters of normal saline and maintenance fluid with bicarb drip at 200 mL/hour. Insulin drip. Accu-Chek every 1 hour, BMP every 4 hours. The patient will be on BiPAP to improve respiratory muscle workload. Once AG closed, insulin drip will be converted to long-acting subcutaneous formulation of insulin. We will continue with deep venous thrombosis and gastrointestinal prophylaxis. ccm time 40 min Jose Asher MD MTDD
[2018-02-28] MEDS ORDERED: Magnesium 2 gm/50 ml NS 2 GM/50 ML BAG IVPB ONE ×2 (07:45→21:55)
[2018-02-28] MEDS ORDERED: Magnesium Oxide 400 mg Tab UD PO STA (07:51)
[2018-02-28] MEDS ORDERED: LANTUS SOLOSTAR PEN SC STA (07:54)
[2018-02-28] MEDS ORDERED: Home Med 1 UNIT SC SCH (07:55)
[2018-02-28] MEDS ORDERED: LANTUS SOLOSTAR PEN SC SCH (07:55)
[2018-02-28] MEDS ORDERED: Potassium Phosphate 15 MMOLE in Sodium Chloride 0.9% 250 ML IVPB ONE (08:06)
[2018-02-28 08:15] LABS: VENOUS BLOOD GAS BASE EXCESS 5.2 mmol/L (0.0-2.0); VENOUS BLOOD GAS PO2 132 mm/Hg (30-55); VENOUS BLOOD PH 7.54 (7.32-7.43)
[2018-02-28 08:30] LABS: BLOOD UREA NITROGEN 23 mg/dL (7-21); CALCIUM 7.9 mg/dL (8.4-10.5); GFR AFRICAN-AMERICAN > 60; GFR NON-AFRICAN AMERICAN > 60
[2018-02-28] MEDS ORDERED: Insulin Detemir 100 units/ml Vial (Levemir) SC SCH (08:30)
[2018-02-28] MEDS: Lactated Ringer's 1,000 ML IV SCH ×3 (08:49→21:41)
[2018-02-28] MEDS: INSULIN LISPRO SC SCH ×4 (08:59→22:03)
[2018-02-28] MEDS ORDERED: Potassium Chloride 20 mEq ER Tab PO STA ×2 (09:04→15:58)
[2018-02-28 11:07] LABS: VENOUS BLOOD GAS BASE EXCESS 2.2 mmol/L (0.0-2.0); VENOUS BLOOD GAS PO2 97 mm/Hg (30-55); VENOUS BLOOD PH 7.48 (7.32-7.43)
[2018-02-28] MEDS: diltiaZEM 120 mg/24 Hours CD Cap PO SCH (11:22)
[2018-02-28] MEDS ORDERED: HUMALOG KWIK PEN SC SCH (11:30)
--- NOTE | 2018-02-28 11:31 | CP.CCUPN ---
<Dany Butcher - Last Filed: 02/28/18 13:48> CCU Subjective - Physician Review Subjective (Free Text): Dany Butcher PGY-1, ICU Progress note for Dr. Haines Pt seen and examined at bedside. Pt was afebrile, with no acute events overnight. Pt states that she still has some fatigue, with nausea and abdominal discomfort, but states that it is much improved since yesterday. Pt is asking for something to drink. Pt produced 1200 mL of clear urine in the past 12 hours. Pt denies fever, headache, dizziness, focal weakness, chest pain, shortness of breath, numbness or tingling. BPAP overnight was well tolerated; which has been discontinued. A 12-point ROS was reviewed and is unremarkable except as stated above. CCU Objective - Vital Signs / Intake & Output Vital Signs (Last 4 hours): Vital Signs Pulse BP 02/28/18 11:22 87 138/54 L 02/28/18 07:48 107 H 130/58 L Intake and Output (Last 8hrs): Intake & Output 02/27/18 02/28/18 02/28/18 22:59 06:59 14:59 Intake Total 2 4106 Output Total 1200 Balance 2 2906 Weight 72.32 kg Intake: IV 2 3906 Normosaline bolus 2000 Regular Insulin 79 Right Wrist 1800 Other 200 Output: Urine 1200 Urine, Voided 1200 Stool 0 Other: # Voids Urine, Voided 3 - Physical Exam Head: Positive for: Atraumatic, Normocephalic Pupils: Positive for: PERRL Extroacular Muscles: Positive for: EOMI Conjunctiva: Positive for: Normal Mouth: Positive for: Dry Respiratory/Chest: Positive for: Clear to Auscultation, Good Air Exchange. Negative for: Respiratory Distress, Accessory Muscle Use Cardiovascular: Positive for: Regular Rate and Rhythm, Murmurs (systolic murmur) Abdomen: Positive for: Normal Bowel Sounds (in all 4 quadrants). Negative for: Tenderness, Distention Back: Positive for: Normal Inspection Upper Extremity: Positive for: Normal Inspection, NORMAL PULSES (3+ bilaterally) . Negative for: Edema Lower Extremity: Positive for: Normal Inspection, NORMAL PULSES (3+ bilaterally) . Negative for: Edema, CALF TENDERNESS Neurological: Positive for: GCS=15, Speech Normal Skin: Positive for: Warm, Dry, Normal Color, Other ((+) mild turgor) Psychiatric: Positive for: Alert, Oriented x 3, Normal Insight, Normal Concentration - Medications Active Medications: Active Medications Generic Name Dose Route Start Last Admin Trade Name Freq PRN Reason Stop Dose Admin Diltiazem HCl 120 mg 02/24/18 10:00 02/28/18 11:22 Cardizem Cd PO 120 mg DAILY KARAN Administration Fluconazole 100 mg 02/27/18 14:00 02/28/18 11:22 Diflucan PO 03/27/18 23:59 100 mg DAILY KARAN Administration Protocol Home Med 12 unit 02/28/18 07:55 Home Med SC HS KARAN Home Med 6 unit 02/28/18 11:30 Home Med SC AC KARAN Lactated Ringer's 1,000 mls @ 150 mls/hr 02/28/18 08:00 02/28/18 08:49 Lactated Ringer's IV 150 mls/hr .[id number] KARAN Administration Potassium Phosphate 15 mmole/ 255 mls @ 42.5 mls/hr 02/28/18 08:06 02/28/18 11:23 Sodium Chloride IVPB 02/28/18 14:05 42.5 mls/hr ONCE ONE Administration Potassium Chloride 10 meq in 100 mls @ 50 mls/hr 02/28/18 09:15 02/28/18 09: 28 Potassium Chloride 10 Meq/100 Ml IVPB 02/28/18 13:14 50 mls/hr Q2H KARAN Administration Insulin Detemir 6 unit 02/28/18 08:30 02/28/18 09:03 Levemir SC 6 u STAT KARAN Administration Insulin Human Lispro 0 units 02/26/18 11:30 02/28/18 08:59 Humalog Low SC Not Given ACHS [facility] Protocol Metoclopramide HCl 10 mg 02/24/18 11:30 02/28/18 07:37 Reglan IVP 10 mg ACHS KARAN Administration Metoprolol Tartrate 12.5 mg 02/24/18 17:00 02/28/18 07:48 Lopressor PO 12.5 mg BRKDIN KARAN Administration Ondansetron HCl 4 mg 02/24/18 17:59 02/27/18 17:05 Zofran Inj IVP 4 mg Q4H PRN Administration Nausea/Vomiting Pantoprazole Sodium 40 mg 02/27/18 16:00 02/28/18 07:48 Protonix Ec Tab PO 40 mg 0600,1600 KARAN Administration Ramipril 1.25 mg 02/24/18 10:00 02/27/18 09:46 Altace PO Not Given DAILY KARAN Vitamin A 1 ea 02/27/18 15:45 Vitamin A & D Oint Ud Foilpak TOP Q2 PRN Dry mouth - Patient Studies Lab Studies: Microbiology Studies 02/23/18 13:56 Blood Culture - Preliminary Blood-Venous NO GROWTH AFTER 4 DAYS 02/23/18 13:56 Blood Culture - Preliminary Blood-Venous NO GROWTH AFTER 4 DAYS Lab Studies 02/28/18 02/28/18 02/28/18 Range/Units 11:00 09:37 08:00 WBC (4.5-11.0) 10^3/ul RBC (3.5-6.1) 10^6/uL Hgb (12.0-16.0) g/dL Hct (36.0-48.0) % MCV (80.0-105.0) fl MCH (25.0-35.0) pg MCHC (31.0-37.0) g/dl RDW (11.5-14.5) % Plt Count (120.0-450.0) 10^3/uL MPV (7.0-11.0) fl D-Dimer, Quantitative 358 H (0-243) ng/mL pCO2 (35-45) mm/Hg pO2 97 H (80-100) mm/Hg HCO3 (21-28) mmol/L ABG pH (7.35-7.45) ABG Total CO2 (22-28) mmol.L ABG O2 Saturation (95-98) % ABG O2 Content (15-23) ML/dl ABG Base Excess (-2.0-3.0) mmol/L ABG Hemoglobin (11.7-17.4) g/dL ABG Carboxyhemoglobin (0.5-1.5) % POC ABG HHb (Measured) (0-5) % ABG Methemoglobin (0.0-3.0) % ABG O2 Capacity (16-24) mL/dl VBG pH 7.48 H (7.32-7.43) VBG pCO2 34.0 L (40-60) VBG HCO3 25.3 (21-28) mmol/l VBG Total CO2 26.3 (22-28) mmol.L VBG O2 Sat (Calc) 99.0 H (40-65) % VBG Base Excess 2.2 H (0.0-2.0) mmol/L VBG Potassium 3.2 L (3.6-5.2) mmol/L Hgb O2 Saturation (95.0-98.0) % Sodium 136.0 138 (132-148) mmol/L Chloride 103.0 99 (98-107) mmol/L Glucose 262 H (65-105) mg/dl Lactate 1.5 (0.7-2.1) mmol/L FiO2 21.0 % Potassium 2.7 L* (3.6-5.0) mmol/L Carbon Dioxide 26 (21-33) mmol/L Anion Gap 15 (10-20) BUN 23 H (7-21) mg/dL Creatinine 0.7 (0.7-1.2) mg/dl Est GFR ( Amer) > 60 Est GFR (Non-Af Amer) > 60 POC Glucose (mg/dL) (65-110) mg/dL Random Glucose 248 H (70-110) mg/dL Calcium 7.9 L (8.4-10.5) mg/dL Phosphorus (2.5-4.5) mg/dL Magnesium (1.7-2.2) mg/dL Total Bilirubin (0.2-1.3) mg/dL AST (14-36) U/L ALT (7-56) U/L Alkaline Phosphatase (38-126) U/L Total Protein (5.8-8.3) g/dL Albumin (3.0-4.8) g/dL Globulin gm/dL Albumin/Globulin Ratio (1.1-1.8) Venous Blood Potassium 3.2 L (3.6-5.2) mmol/L 02/28/18 02/28/18 02/28/18 Range/Units 08:00 07:31 06:14 WBC (4.5-11.0) 10^3/ul RBC (3.5-6.1) 10^6/uL Hgb (12.0-16.0) g/dL Hct (36.0-48.0) % MCV (80.0-105.0) fl MCH (25.0-35.0) pg MCHC (31.0-37.0) g/dl RDW (11.5-14.5) % Plt Count (120.0-450.0) 10^3/uL MPV (7.0-11.0) fl D-Dimer, Quantitative (0-243) ng/mL pCO2 (35-45) mm/Hg pO2 132 H (80-100) mm/Hg HCO3 (21-28) mmol/L ABG pH (7.35-7.45) ABG Total CO2 (22-28) mmol.L ABG O2 Saturation (95-98) % ABG O2 Content (15-23) ML/dl ABG Base Excess (-2.0-3.0) mmol/L ABG Hemoglobin (11.7-17.4) g/dL ABG Carboxyhemoglobin (0.5-1.5) % POC ABG HHb (Measured) (0-5) % ABG Methemoglobin (0.0-3.0) % ABG O2 Capacity (16-24) mL/dl VBG pH 7.54 H (7.32-7.43) VBG pCO2 32.0 L (40-60) VBG HCO3 27.4 (21-28) mmol/l VBG Total CO2 28.4 H (22-28) mmol.L VBG O2 Sat (Calc) 98.7 H (40-65) % VBG Base Excess 5.2 H (0.0-2.0) mmol/L VBG Potassium 2.6 L (3.6-5.2) mmol/L Hgb O2 Saturation (95.0-98.0) % Sodium 137.0 (132-148) mmol/L Chloride 104.0 (98-107) mmol/L Glucose 271 H (65-105) mg/dl Lactate 1.9 (0.7-2.1) mmol/L FiO2 21.0 % Potassium (3.6-5.0) mmol/L Carbon Dioxide (21-33) mmol/L Anion Gap (10-20) BUN (7-21) mg/dL Creatinine (0.7-1.2) mg/dl Est GFR ( Amer) Est GFR (Non-Af Amer) POC Glucose (mg/dL) 278 H 284 H (65-110) mg/dL Random Glucose (70-110) mg/dL Calcium (8.4-10.5) mg/dL Phosphorus (2.5-4.5) mg/dL Magnesium (1.7-2.2) mg/dL Total Bilirubin (0.2-1.3) mg/dL AST (14-36) U/L ALT (7-56) U/L Alkaline Phosphatase (38-126) U/L Total Protein (5.8-8.3) g/dL Albumin (3.0-4.8) g/dL Globulin gm/dL Albumin/Globulin Ratio (1.1-1.8) Venous Blood Potassium 2.6 L (3.6-5.2) mmol/L 02/28/18 02/28/18 02/28/18 Range/Units 05:29 04:39 04:00 WBC (4.5-11.0) 10^3/ul RBC (3.5-6.1) 10^6/uL Hgb (12.0-16.0) g/dL Hct (36.0-48.0) % MCV (80.0-105.0) fl MCH (25.0-35.0) pg MCHC (31.0-37.0) g/dl RDW (11.5-14.5) % Plt Count (120.0-450.0) 10^3/uL MPV (7.0-11.0) fl D-Dimer, Quantitative (0-243) ng/mL pCO2 (35-45) mm/Hg pO2 38 (80-100) mm/Hg HCO3 (21-28) mmol/L ABG pH (7.35-7.45) ABG Total CO2 (22-28) mmol.L ABG O2 Saturation (95-98) % ABG O2 Content (15-23) ML/dl ABG Base Excess (-2.0-3.0) mmol/L ABG Hemoglobin (11.7-17.4) g/dL ABG Carboxyhemoglobin (0.5-1.5) % POC ABG HHb (Measured) (0-5) % ABG Methemoglobin (0.0-3.0) % ABG O2 Capacity (16-24) mL/dl VBG pH 7.40 (7.32-7.43) VBG pCO2 33.0 L (40-60) VBG HCO3 20.4 L (21-28) mmol/l VBG Total CO2 21.4 L (22-28) mmol.L VBG O2 Sat (Calc) 86.0 H (40-65) % VBG Base Excess -3.6 L (0.0-2.0) mmol/L VBG Potassium 2.5 L* (3.6-5.2) mmol/L Hgb O2 Saturation (95.0-98.0) % Sodium 135.0 (132-148) mmol/L Chloride 102.0 (98-107) mmol/L Glucose 356 H (65-105) mg/dl Lactate 2.2 H (0.7-2.1) mmol/L FiO2 21.0 % Potassium (3.6-5.0) mmol/L Carbon Dioxide (21-33) mmol/L Anion Gap (10-20) BUN (7-21) mg/dL Creatinine (0.7-1.2) mg/dl Est GFR ( Amer) Est GFR (Non-Af Amer) POC Glucose (mg/dL) 273 H 305 H (65-110) mg/dL Random Glucose (70-110) mg/dL Calcium (8.4-10.5) mg/dL Phosphorus (2.5-4.5) mg/dL Magnesium (1.7-2.2) mg/dL Total Bilirubin (0.2-1.3) mg/dL AST (14-36) U/L ALT (7-56) U/L Alkaline Phosphatase (38-126) U/L Total Protein (5.8-8.3) g/dL Albumin (3.0-4.8) g/dL Globulin gm/dL Albumin/Globulin Ratio (1.1-1.8) Venous Blood Potassium 2.5 L* (3.6-5.2) mmol/L 02/28/18 02/28/18 02/28/18 Range/Units 04:00 04:00 03:37 WBC 16.4 H D (4.5-11.0) 10^3/ul RBC 3.64 (3.5-6.1) 10^6/uL Hgb 10.8 L (12.0-16.0) g/dL Hct 30.7 L (36.0-48.0) % MCV 84.3 (80.0-105.0) fl MCH 29.7 (25.0-35.0) pg MCHC 35.2 (31.0-37.0) g/dl RDW 14.1 (11.5-14.5) % Plt Count 251 (120.0-450.0) 10^3/uL MPV 11.2 H (7.0-11.0) fl D-Dimer, Quantitative (0-243) ng/mL pCO2 (35-45) mm/Hg pO2 (80-100) mm/Hg HCO3 (21-28) mmol/L ABG pH (7.35-7.45) ABG Total CO2 (22-28) mmol.L ABG O2 Saturation (95-98) % ABG O2 Content (15-23) ML/dl ABG Base Excess (-2.0-3.0) mmol/L ABG Hemoglobin (11.7-17.4) g/dL ABG Carboxyhemoglobin (0.5-1.5) % POC ABG HHb (Measured) (0-5) % ABG Methemoglobin (0.0-3.0) % ABG O2 Capacity (16-24) mL/dl VBG pH (7.32-7.43) VBG pCO2 (40-60) VBG HCO3 (21-28) mmol/l VBG Total CO2 (22-28) mmol.L VBG O2 Sat (Calc) (40-65) % VBG Base Excess (0.0-2.0) mmol/L VBG Potassium (3.6-5.2) mmol/L Hgb O2 Saturation (95.0-98.0) % Sodium 139 (132-148) mmol/L Chloride 101 (98-107) mmol/L Glucose (65-105) mg/dl Lactate (0.7-2.1) mmol/L FiO2 % Potassium 2.6 L* (3.6-5.0) mmol/L Carbon Dioxide 21 (21-33) mmol/L Anion Gap 19 (10-20) BUN 25 H (7-21) mg/dL Creatinine 0.9 (0.7-1.2) mg/dl Est GFR ( Amer) > 60 Est GFR (Non-Af Amer) > 60 POC Glucose (mg/dL) 337 H (65-110) mg/dL Random Glucose 328 H* D (70-110) mg/dL Calcium 8.1 L (8.4-10.5) mg/dL Phosphorus < 0.5 L* (2.5-4.5) mg/dL Magnesium 2.0 (1.7-2.2) mg/dL Total Bilirubin 0.6 (0.2-1.3) mg/dL AST 37 H D (14-36) U/L ALT 31 (7-56) U/L Alkaline Phosphatase 73 (38-126) U/L Total Protein 5.9 (5.8-8.3) g/dL Albumin 3.3 (3.0-4.8) g/dL Globulin 2.6 gm/dL Albumin/Globulin Ratio 1.3 (1.1-1.8) Venous Blood Potassium (3.6-5.2) mmol/L 02/28/18 02/28/18 02/28/18 Range/Units 02:43 01:23 00:50 WBC (4.5-11.0) 10^3/ul RBC (3.5-6.1) 10^6/uL Hgb (12.0-16.0) g/dL Hct (36.0-48.0) % MCV (80.0-105.0) fl MCH (25.0-35.0) pg MCHC (31.0-37.0) g/dl RDW (11.5-14.5) % Plt Count (120.0-450.0) 10^3/uL MPV (7.0-11.0) fl D-Dimer, Quantitative (0-243) ng/mL pCO2 (35-45) mm/Hg pO2 (80-100) mm/Hg HCO3 (21-28) mmol/L ABG pH (7.35-7.45) ABG Total CO2 (22-28) mmol.L ABG O2 Saturation (95-98) % ABG O2 Content (15-23) ML/dl ABG Base Excess (-2.0-3.0) mmol/L ABG Hemoglobin (11.7-17.4) g/dL ABG Carboxyhemoglobin (0.5-1.5) % POC ABG HHb (Measured) (0-5) % ABG Methemoglobin (0.0-3.0) % ABG O2 Capacity (16-24) mL/dl VBG pH (7.32-7.43) VBG pCO2 (40-60) VBG HCO3 (21-28) mmol/l VBG Total CO2 (22-28) mmol.L VBG O2 Sat (Calc) (40-65) % VBG Base Excess (0.0-2.0) mmol/L VBG Potassium (3.6-5.2) mmol/L Hgb O2 Saturation (95.0-98.0) % Sodium 136 (132-148) mmol/L Chloride 101 (98-107) mmol/L Glucose (65-105) mg/dl Lactate (0.7-2.1) mmol/L FiO2 % Potassium 2.9 L* D (3.6-5.0) mmol/L Carbon Dioxide 12 L (21-33) mmol/L Anion Gap 27 H (10-20) BUN 26 H (7-21) mg/dL Creatinine 1.1 (0.7-1.2) mg/dl Est GFR ( Amer) > 60 Est GFR (Non-Af Amer) 51 POC Glucose (mg/dL) 358 H 396 H (65-110) mg/dL Random Glucose 421 H* D (70-110) mg/dL Calcium 8.0 L (8.4-10.5) mg/dL Phosphorus (2.5-4.5) mg/dL Magnesium (1.7-2.2) mg/dL Total Bilirubin (0.2-1.3) mg/dL AST (14-36) U/L ALT (7-56) U/L Alkaline Phosphatase (38-126) U/L Total Protein (5.8-8.3) g/dL Albumin (3.0-4.8) g/dL Globulin gm/dL Albumin/Globulin Ratio (1.1-1.8) Venous Blood Potassium (3.6-5.2) mmol/L 02/28/18 02/28/18 02/27/18 Range/Units 00:50 00:17 22:49 WBC (4.5-11.0) 10^3/ul RBC (3.5-6.1) 10^6/uL Hgb (12.0-16.0) g/dL Hct (36.0-48.0) % MCV (80.0-105.0) fl MCH (25.0-35.0) pg MCHC (31.0-37.0) g/dl RDW (11.5-14.5) % Plt Count (120.0-450.0) 10^3/uL MPV (7.0-11.0) fl D-Dimer, Quantitative (0-243) ng/mL pCO2 (35-45) mm/Hg pO2 25 L (80-100) mm/Hg HCO3 (21-28) mmol/L ABG pH (7.35-7.45) ABG Total CO2 (22-28) mmol.L ABG O2 Saturation (95-98) % ABG O2 Content (15-23) ML/dl ABG Base Excess (-2.0-3.0) mmol/L ABG Hemoglobin (11.7-17.4) g/dL ABG Carboxyhemoglobin (0.5-1.5) % POC ABG HHb (Measured) (0-5) % ABG Methemoglobin (0.0-3.0) % ABG O2 Capacity (16-24) mL/dl VBG pH 7.28 L (7.32-7.43) VBG pCO2 27.0 L (40-60) VBG HCO3 12.7 L (21-28) mmol/l VBG Total CO2 13.5 L (22-28) mmol.L VBG O2 Sat (Calc) 64.6 (40-65) % VBG Base Excess -12.4 L (0.0-2.0) mmol/L VBG Potassium 2.8 L (3.6-5.2) mmol/L Hgb O2 Saturation (95.0-98.0) % Sodium 135.0 (132-148) mmol/L Chloride 99.0 (98-107) mmol/L Glucose 460 H* D (65-105) mg/dl Lactate 2.3 H (0.7-2.1) mmol/L FiO2 21.0 % Potassium (3.6-5.0) mmol/L Carbon Dioxide (21-33) mmol/L Anion Gap (10-20) BUN (7-21) mg/dL Creatinine (0.7-1.2) mg/dl Est GFR ( Amer) Est GFR (Non-Af Amer) POC Glucose (mg/dL) 406 H* 461 H* (65-110) mg/dL Random Glucose (70-110) mg/dL Calcium (8.4-10.5) mg/dL Phosphorus (2.5-4.5) mg/dL Magnesium (1.7-2.2) mg/dL Total Bilirubin (0.2-1.3) mg/dL AST (14-36) U/L ALT (7-56) U/L Alkaline Phosphatase (38-126) U/L Total Protein (5.8-8.3) g/dL Albumin (3.0-4.8) g/dL Globulin gm/dL Albumin/Globulin Ratio (1.1-1.8) Venous Blood Potassium 2.8 L (3.6-5.2) mmol/L 02/27/18 02/27/18 02/27/18 Range/Units 22:08 21:05 20:14 WBC (4.5-11.0) 10^3/ul RBC (3.5-6.1) 10^6/uL Hgb (12.0-16.0) g/dL Hct (36.0-48.0) % MCV (80.0-105.0) fl MCH (25.0-35.0) pg MCHC (31.0-37.0) g/dl RDW (11.5-14.5) % Plt Count (120.0-450.0) 10^3/uL MPV (7.0-11.0) fl D-Dimer, Quantitative (0-243) ng/mL pCO2 (35-45) mm/Hg pO2 (80-100) mm/Hg HCO3 (21-28) mmol/L ABG pH (7.35-7.45) ABG Total CO2 (22-28) mmol.L ABG O2 Saturation (95-98) % ABG O2 Content (15-23) ML/dl ABG Base Excess (-2.0-3.0) mmol/L ABG Hemoglobin (11.7-17.4) g/dL ABG Carboxyhemoglobin (0.5-1.5) % POC ABG HHb (Measured) (0-5) % ABG Methemoglobin (0.0-3.0) % ABG O2 Capacity (16-24) mL/dl VBG pH (7.32-7.43) VBG pCO2 (40-60) VBG HCO3 (21-28) mmol/l VBG Total CO2 (22-28) mmol.L VBG O2 Sat (Calc) (40-65) % VBG Base Excess (0.0-2.0) mmol/L VBG Potassium (3.6-5.2) mmol/L Hgb O2 Saturation (95.0-98.0) % Sodium 136 (132-148) mmol/L Chloride 102 (98-107) mmol/L Glucose (65-105) mg/dl Lactate (0.7-2.1) mmol/L FiO2 % Potassium 3.7 (3.6-5.0) mmol/L Carbon Dioxide 5 L (21-33) mmol/L Anion Gap 33 H (10-20) BUN 22 H (7-21) mg/dL Creatinine 1.2 (0.7-1.2) mg/dl Est GFR ( Amer) 55 Est GFR (Non-Af Amer) 46 POC Glucose (mg/dL) 468 H* 499 H* (65-110) mg/dL Random Glucose 545 H* (70-110) mg/dL Calcium 7.8 L (8.4-10.5) mg/dL Phosphorus (2.5-4.5) mg/dL Magnesium (1.7-2.2) mg/dL Total Bilirubin (0.2-1.3) mg/dL AST (14-36) U/L ALT (7-56) U/L Alkaline Phosphatase (38-126) U/L Total Protein (5.8-8.3) g/dL Albumin (3.0-4.8) g/dL Globulin gm/dL Albumin/Globulin Ratio (1.1-1.8) Venous Blood Potassium (3.6-5.2) mmol/L 02/27/18 02/27/18 02/27/18 Range/Units 20:14 19:56 19:05 WBC (4.5-11.0) 10^3/ul RBC (3.5-6.1) 10^6/uL Hgb (12.0-16.0) g/dL Hct (36.0-48.0) % MCV (80.0-105.0) fl MCH (25.0-35.0) pg MCHC (31.0-37.0) g/dl RDW (11.5-14.5) % Plt Count (120.0-450.0) 10^3/uL MPV (7.0-11.0) fl D-Dimer, Quantitative (0-243) ng/mL pCO2 (35-45) mm/Hg pO2 87 H (80-100) mm/Hg HCO3 (21-28) mmol/L ABG pH (7.35-7.45) ABG Total CO2 (22-28) mmol.L ABG O2 Saturation (95-98) % ABG O2 Content (15-23) ML/dl ABG Base Excess (-2.0-3.0) mmol/L ABG Hemoglobin (11.7-17.4) g/dL ABG Carboxyhemoglobin (0.5-1.5) % POC ABG HHb (Measured) (0-5) % ABG Methemoglobin (0.0-3.0) % ABG O2 Capacity (16-24) mL/dl VBG pH 6.91 L* (7.32-7.43) VBG pCO2 19.0 L* (40-60) VBG HCO3 3.8 L (21-28) mmol/l VBG Total CO2 4.4 L (22-28) mmol.L VBG O2 Sat (Calc) 97.3 H (40-65) % VBG Base Excess -27.8 L (0.0-2.0) mmol/L VBG Potassium 3.6 (3.6-5.2) mmol/L Hgb O2 Saturation (95.0-98.0) % Sodium 134.0 (132-148) mmol/L Chloride 98.0 (98-107) mmol/L Glucose 580 H* (65-105) mg/dl Lactate 4.3 H* (0.7-2.1) mmol/L FiO2 21.0 % Potassium (3.6-5.0) mmol/L Carbon Dioxide (21-33) mmol/L Anion Gap (10-20) BUN (7-21) mg/dL Creatinine (0.7-1.2) mg/dl Est GFR ( Amer) Est GFR (Non-Af Amer) POC Glucose (mg/dL) > 500 H* > 500 H* (65-110) mg/dL Random Glucose (70-110) mg/dL Calcium (8.4-10.5) mg/dL Phosphorus (2.5-4.5) mg/dL Magnesium (1.7-2.2) mg/dL Total Bilirubin (0.2-1.3) mg/dL AST (14-36) U/L ALT (7-56) U/L Alkaline Phosphatase (38-126) U/L Total Protein (5.8-8.3) g/dL Albumin (3.0-4.8) g/dL Globulin gm/dL Albumin/Globulin Ratio (1.1-1.8) Venous Blood Potassium 3.6 (3.6-5.2) mmol/L 02/27/18 02/27/18 02/27/18 Range/Units 18:18 16:39 16:39 WBC (4.5-11.0) 10^3/ul RBC (3.5-6.1) 10^6/uL Hgb (12.0-16.0) g/dL Hct (36.0-48.0) % MCV (80.0-105.0) fl MCH (25.0-35.0) pg MCHC (31.0-37.0) g/dl RDW (11.5-14.5) % Plt Count (120.0-450.0) 10^3/uL MPV (7.0-11.0) fl D-Dimer, Quantitative (0-243) ng/mL pCO2 (35-45) mm/Hg pO2 116 H (80-100) mm/Hg HCO3 (21-28) mmol/L ABG pH (7.35-7.45) ABG Total CO2 (22-28) mmol.L ABG O2 Saturation (95-98) % ABG O2 Content (15-23) ML/dl ABG Base Excess (-2.0-3.0) mmol/L ABG Hemoglobin (11.7-17.4) g/dL ABG Carboxyhemoglobin (0.5-1.5) % POC ABG HHb (Measured) (0-5) % ABG Methemoglobin (0.0-3.0) % ABG O2 Capacity (16-24) mL/dl VBG pH 6.87 L* (7.32-7.43) VBG pCO2 18.0 L* (40-60) VBG HCO3 3.3 L (21-28) mmol/l VBG Total CO2 3.9 L (22-28) mmol.L VBG O2 Sat (Calc) 98.4 H (40-65) % VBG Base Excess -29.1 L (0.0-2.0) mmol/L VBG Potassium 4.4 (3.6-5.2) mmol/L Hgb O2 Saturation (95.0-98.0) % Sodium 132.0 135 (132-148) mmol/L Chloride 98.0 101 (98-107) mmol/L Glucose 570 H* (65-105) mg/dl Lactate 5.9 H* (0.7-2.1) mmol/L FiO2 21.0 % Potassium 4.9 (3.6-5.0) mmol/L Carbon Dioxide 5 L D (21-33) mmol/L Anion Gap 34 H (10-20) BUN 20 (7-21) mg/dL Creatinine 1.1 (0.7-1.2) mg/dl Est GFR ( Amer) > 60 Est GFR (Non-Af Amer) 51 POC Glucose (mg/dL) > 500 H* (65-110) mg/dL Random Glucose 535 H* D (70-110) mg/dL Calcium 8.3 L (8.4-10.5) mg/dL Phosphorus (2.5-4.5) mg/dL Magnesium (1.7-2.2) mg/dL Total Bilirubin (0.2-1.3) mg/dL AST (14-36) U/L ALT (7-56) U/L Alkaline Phosphatase (38-126) U/L Total Protein (5.8-8.3) g/dL Albumin (3.0-4.8) g/dL Globulin gm/dL Albumin/Globulin Ratio (1.1-1.8) Venous Blood Potassium 4.4 (3.6-5.2) mmol/L 02/27/18 02/27/18 02/27/18 Range/Units 16:17 15:30 15:00 WBC (4.5-11.0) 10^3/ul RBC (3.5-6.1) 10^6/uL Hgb (12.0-16.0) g/dL Hct (36.0-48.0) % MCV (80.0-105.0) fl MCH (25.0-35.0) pg MCHC (31.0-37.0) g/dl RDW (11.5-14.5) % Plt Count (120.0-450.0) 10^3/uL MPV (7.0-11.0) fl D-Dimer, Quantitative 594 H (0-243) ng/mL pCO2 11 L* (35-45) mm/Hg pO2 142.0 H (80-100) mm/Hg HCO3 2.9 L* (21-28) mmol/L ABG pH 7.03 L* (7.35-7.45) ABG Total CO2 3.2 L (22-28) mmol.L ABG O2 Saturation 99.6 H (95-98) % ABG O2 Content 15.6 (15-23) ML/dl ABG Base Excess -25.9 L (-2.0-3.0) mmol/L ABG Hemoglobin 11.2 L (11.7-17.4) g/dL ABG Carboxyhemoglobin 1.2 (0.5-1.5) % POC ABG HHb (Measured) 0.4 (0-5) % ABG Methemoglobin 1.0 (0.0-3.0) % ABG O2 Capacity 15.7 L (16-24) mL/dl VBG pH (7.32-7.43) VBG pCO2 (40-60) VBG HCO3 (21-28) mmol/l VBG Total CO2 (22-28) mmol.L VBG O2 Sat (Calc) (40-65) % VBG Base Excess (0.0-2.0) mmol/L VBG Potassium (3.6-5.2) mmol/L Hgb O2 Saturation 97.4 (95.0-98.0) % Sodium (132-148) mmol/L Chloride (98-107) mmol/L Glucose (65-105) mg/dl Lactate (0.7-2.1) mmol/L FiO2 28.0 % Potassium (3.6-5.0) mmol/L Carbon Dioxide (21-33) mmol/L Anion Gap (10-20) BUN (7-21) mg/dL Creatinine (0.7-1.2) mg/dl Est GFR ( Amer) Est GFR (Non-Af Amer) POC Glucose (mg/dL) 397 H (65-110) mg/dL Random Glucose (70-110) mg/dL Calcium (8.4-10.5) mg/dL Phosphorus (2.5-4.5) mg/dL Magnesium (1.7-2.2) mg/dL Total Bilirubin (0.2-1.3) mg/dL AST (14-36) U/L ALT (7-56) U/L Alkaline Phosphatase (38-126) U/L Total Protein (5.8-8.3) g/dL Albumin (3.0-4.8) g/dL Globulin gm/dL Albumin/Globulin Ratio (1.1-1.8) Venous Blood Potassium (3.6-5.2) mmol/L 02/27/18 02/27/18 Range/Units 14:23 11:42 WBC (4.5-11.0) 10^3/ul RBC (3.5-6.1) 10^6/uL Hgb (12.0-16.0) g/dL Hct (36.0-48.0) % MCV (80.0-105.0) fl MCH (25.0-35.0) pg MCHC (31.0-37.0) g/dl RDW (11.5-14.5) % Plt Count (120.0-450.0) 10^3/uL MPV (7.0-11.0) fl D-Dimer, Quantitative (0-243) ng/mL pCO2 (35-45) mm/Hg pO2 (80-100) mm/Hg HCO3 (21-28) mmol/L ABG pH (7.35-7.45) ABG Total CO2 (22-28) mmol.L ABG O2 Saturation (95-98) % ABG O2 Content (15-23) ML/dl ABG Base Excess (-2.0-3.0) mmol/L ABG Hemoglobin (11.7-17.4) g/dL ABG Carboxyhemoglobin (0.5-1.5) % POC ABG HHb (Measured) (0-5) % ABG Methemoglobin (0.0-3.0) % ABG O2 Capacity (16-24) mL/dl VBG pH (7.32-7.43) VBG pCO2 (40-60) VBG HCO3 (21-28) mmol/l VBG Total CO2 (22-28) mmol.L VBG O2 Sat (Calc) (40-65) % VBG Base Excess (0.0-2.0) mmol/L VBG Potassium (3.6-5.2) mmol/L Hgb O2 Saturation (95.0-98.0) % Sodium (132-148) mmol/L Chloride (98-107) mmol/L Glucose (65-105) mg/dl Lactate (0.7-2.1) mmol/L FiO2 % Potassium (3.6-5.0) mmol/L Carbon Dioxide (21-33) mmol/L Anion Gap (10-20) BUN (7-21) mg/dL Creatinine (0.7-1.2) mg/dl Est GFR ( Amer) Est GFR (Non-Af Amer) POC Glucose (mg/dL) 307 H 368 H (65-110) mg/dL Random Glucose (70-110) mg/dL Calcium (8.4-10.5) mg/dL Phosphorus (2.5-4.5) mg/dL Magnesium (1.7-2.2) mg/dL Total Bilirubin (0.2-1.3) mg/dL AST (14-36) U/L ALT (7-56) U/L Alkaline Phosphatase (38-126) U/L Total Protein (5.8-8.3) g/dL Albumin (3.0-4.8) g/dL Globulin gm/dL Albumin/Globulin Ratio (1.1-1.8) Venous Blood Potassium (3.6-5.2) mmol/L Laboratory Results - last 24 hr 02/27/18 02/27/18 02/27/18 11:42 14:23 15:00 WBC RBC Hgb Hct MCV MCH MCHC RDW Plt Count MPV D-Dimer, Quantitative pCO2 11 L* pO2 142.0 H HCO3 2.9 L* ABG pH 7.03 L* ABG Total CO2 3.2 L ABG O2 Saturation 99.6 H ABG O2 Content 15.6 ABG Base Excess -25.9 L ABG Hemoglobin 11.2 L ABG Carboxyhemoglobin 1.2 POC ABG HHb (Measured) 0.4 ABG Methemoglobin 1.0 ABG O2 Capacity 15.7 L VBG pH VBG pCO2 VBG HCO3 VBG Total CO2 VBG O2 Sat (Calc) VBG Base Excess VBG Potassium Hgb O2 Saturation 97.4 Sodium Chloride Glucose Lactate FiO2 28.0 Potassium Carbon Dioxide Anion Gap BUN Creatinine Est GFR ( Amer) Est GFR (Non-Af Amer) POC Glucose (mg/dL) 368 H 307 H Random Glucose Calcium Phosphorus Magnesium Total Bilirubin AST ALT Alkaline Phosphatase Total Protein Albumin Globulin Albumin/Globulin Ratio Venous Blood Potassium 02/27/18 02/27/18 02/27/18 15:30 16:17 16:39 WBC RBC Hgb Hct MCV MCH MCHC RDW Plt Count MPV D-Dimer, Quantitative 594 H pCO2 pO2 HCO3 ABG pH ABG Total CO2 ABG O2 Saturation ABG O2 Content ABG Base Excess ABG Hemoglobin ABG Carboxyhemoglobin POC ABG HHb (Measured) ABG Methemoglobin ABG O2 Capacity VBG pH VBG pCO2 VBG HCO3 VBG Total CO2 VBG O2 Sat (Calc) VBG Base Excess VBG Potassium Hgb O2 Saturation Sodium 135 Chloride 101 Glucose Lactate FiO2 Potassium 4.9 Carbon Dioxide 5 L D Anion Gap 34 H BUN 20 Creatinine 1.1 Est GFR ( Amer) > 60 Est GFR (Non-Af Amer) 51 POC Glucose (mg/dL) 397 H Random Glucose 535 H* D Calcium 8.3 L Phosphorus Magnesium Total Bilirubin AST ALT Alkaline Phosphatase Total Protein Albumin Globulin Albumin/Globulin Ratio Venous Blood Potassium 02/27/18 02/27/18 02/27/18 16:39 18:18 19:05 WBC RBC Hgb Hct MCV MCH MCHC RDW Plt Count MPV D-Dimer, Quantitative pCO2 pO2 116 H HCO3 ABG pH ABG Total CO2 ABG O2 Saturation ABG O2 Content ABG Base Excess ABG Hemoglobin ABG Carboxyhemoglobin POC ABG HHb (Measured) ABG Methemoglobin ABG O2 Capacity VBG pH 6.87 L* VBG pCO2 18.0 L* VBG HCO3 3.3 L VBG Total CO2 3.9 L VBG O2 Sat (Calc) 98.4 H VBG Base Excess -29.1 L VBG Potassium 4.4 Hgb O2 Saturation Sodium 132.0 Chloride 98.0 Glucose 570 H* Lactate 5.9 H* FiO2 21.0 Potassium Carbon Dioxide Anion Gap BUN Creatinine Est GFR ( Amer) Est GFR (Non-Af Amer) POC Glucose (mg/dL) > 500 H* > 500 H* Random Glucose Calcium Phosphorus Magnesium Total Bilirubin AST ALT Alkaline Phosphatase Total Protein Albumin Globulin Albumin/Globulin Ratio Venous Blood Potassium 4.4 02/27/18 02/27/18 02/27/18 19:56 20:14 20:14 WBC RBC Hgb Hct MCV MCH MCHC RDW Plt Count MPV D-Dimer, Quantitative pCO2 pO2 87 H HCO3 ABG pH ABG Total CO2 ABG O2 Saturation ABG O2 Content ABG Base Excess ABG Hemoglobin ABG Carboxyhemoglobin POC ABG HHb (Measured) ABG Methemoglobin ABG O2 Capacity VBG pH 6.91 L* VBG pCO2 19.0 L* VBG HCO3 3.8 L VBG Total CO2 4.4 L VBG O2 Sat (Calc) 97.3 H VBG Base Excess -27.8 L VBG Potassium 3.6 Hgb O2 Saturation Sodium 134.0 136 Chloride 98.0 102 Glucose 580 H* Lactate 4.3 H* FiO2 21.0 Potassium 3.7 Carbon Dioxide 5 L Anion Gap 33 H BUN 22 H Creatinine 1.2 Est GFR ( Amer) 55 Est GFR (Non-Af Amer) 46 POC Glucose (mg/dL) > 500 H* Random Glucose 545 H* Calcium 7.8 L Phosphorus Magnesium Total Bilirubin AST ALT Alkaline Phosphatase Total Protein Albumin Globulin Albumin/Globulin Ratio Venous Blood Potassium 3.6 02/27/18 02/27/18 02/27/18 21:05 22:08 22:49 WBC RBC Hgb Hct MCV MCH MCHC RDW Plt Count MPV D-Dimer, Quantitative pCO2 pO2 HCO3 ABG pH ABG Total CO2 ABG O2 Saturation ABG O2 Content ABG Base Excess ABG Hemoglobin ABG Carboxyhemoglobin POC ABG HHb (Measured) ABG Methemoglobin ABG O2 Capacity VBG pH VBG pCO2 VBG HCO3 VBG Total CO2 VBG O2 Sat (Calc) VBG Base Excess VBG Potassium Hgb O2 Saturation Sodium Chloride Glucose Lactate FiO2 Potassium Carbon Dioxide Anion Gap BUN Creatinine Est GFR ( Amer) Est GFR (Non-Af Amer) POC Glucose (mg/dL) 499 H* 468 H* 461 H* Random Glucose Calcium Phosphorus Magnesium Total Bilirubin AST ALT Alkaline Phosphatase Total Protein Albumin Globulin Albumin/Globulin Ratio Venous Blood Potassium 02/28/18 02/28/18 02/28/18 00:17 00:50 00:50 WBC RBC Hgb Hct MCV MCH MCHC RDW Plt Count MPV D-Dimer, Quantitative pCO2 pO2 25 L HCO3 ABG pH ABG Total CO2 ABG O2 Saturation ABG O2 Content ABG Base Excess ABG Hemoglobin ABG Carboxyhemoglobin POC ABG HHb (Measured) ABG Methemoglobin ABG O2 Capacity VBG pH 7.28 L VBG pCO2 27.0 L VBG HCO3 12.7 L VBG Total CO2 13.5 L VBG O2 Sat (Calc) 64.6 VBG Base Excess -12.4 L VBG Potassium 2.8 L Hgb O2 Saturation Sodium 135.0 136 Chloride 99.0 101 Glucose 460 H* D Lactate 2.3 H FiO2 21.0 Potassium 2.9 L* D Carbon Dioxide 12 L Anion Gap 27 H BUN 26 H Creatinine 1.1 Est GFR ( Amer) > 60 Est GFR (Non-Af Amer) 51 POC Glucose (mg/dL) 406 H* Random Glucose 421 H* D Calcium 8.0 L Phosphorus Magnesium Total Bilirubin AST ALT Alkaline Phosphatase Total Protein Albumin Globulin Albumin/Globulin Ratio Venous Blood Potassium 2.8 L 02/28/18 02/28/18 02/28/18 01:23 02:43 03:37 WBC RBC Hgb Hct MCV MCH MCHC RDW Plt Count MPV D-Dimer, Quantitative pCO2 pO2 HCO3 ABG pH ABG Total CO2 ABG O2 Saturation ABG O2 Content ABG Base Excess ABG Hemoglobin ABG Carboxyhemoglobin POC ABG HHb (Measured) ABG Methemoglobin ABG O2 Capacity VBG pH VBG pCO2 VBG HCO3 VBG Total CO2 VBG O2 Sat (Calc) VBG Base Excess VBG Potassium Hgb O2 Saturation Sodium Chloride Glucose Lactate FiO2 Potassium Carbon Dioxide Anion Gap BUN Creatinine Est GFR ( Amer) Est GFR (Non-Af Amer) POC Glucose (mg/dL) 396 H 358 H 337 H Random Glucose Calcium Phosphorus Magnesium Total Bilirubin AST ALT Alkaline Phosphatase Total Protein Albumin Globulin Albumin/Globulin Ratio Venous Blood Potassium 02/28/18 02/28/18 02/28/18 04:00 04:00 04:00 WBC 16.4 H D RBC 3.64 Hgb 10.8 L Hct 30.7 L MCV 84.3 MCH 29.7 MCHC 35.2 RDW 14.1 Plt Count 251 MPV 11.2 H D-Dimer, Quantitative pCO2 pO2 38 HCO3 ABG pH ABG Total CO2 ABG O2 Saturation ABG O2 Content ABG Base Excess ABG Hemoglobin ABG Carboxyhemoglobin POC ABG HHb (Measured) ABG Methemoglobin ABG O2 Capacity VBG pH 7.40 VBG pCO2 33.0 L VBG HCO3 20.4 L VBG Total CO2 21.4 L VBG O2 Sat (Calc) 86.0 H VBG Base Excess -3.6 L VBG Potassium 2.5 L* Hgb O2 Saturation Sodium 139 135.0 Chloride 101 102.0 Glucose 356 H Lactate 2.2 H FiO2 21.0 Potassium 2.6 L* Carbon Dioxide 21 Anion Gap 19 BUN 25 H Creatinine 0.9 Est GFR ( Amer) > 60 Est GFR (Non-Af Amer) > 60 POC Glucose (mg/dL) Random Glucose 328 H* D Calcium 8.1 L Phosphorus < 0.5 L* Magnesium 2.0 Total Bilirubin 0.6 AST 37 H D ALT 31 Alkaline Phosphatase 73 Total Protein 5.9 Albumin 3.3 Globulin 2.6 Albumin/Globulin Ratio 1.3 Venous Blood Potassium 2.5 L* 02/28/18 02/28/18 02/28/18 04:39 05:29 06:14 WBC RBC Hgb Hct MCV MCH MCHC RDW Plt Count MPV D-Dimer, Quantitative pCO2 pO2 HCO3 ABG pH ABG Total CO2 ABG O2 Saturation ABG O2 Content ABG Base Excess ABG Hemoglobin ABG Carboxyhemoglobin POC ABG HHb (Measured) ABG Methemoglobin ABG O2 Capacity VBG pH VBG pCO2 VBG HCO3 VBG Total CO2 VBG O2 Sat (Calc) VBG Base Excess VBG Potassium Hgb O2 Saturation Sodium Chloride Glucose Lactate FiO2 Potassium Carbon Dioxide Anion Gap BUN Creatinine Est GFR ( Amer) Est GFR (Non-Af Amer) POC Glucose (mg/dL) 305 H 273 H 284 H Random Glucose Calcium Phosphorus Magnesium Total Bilirubin AST ALT Alkaline Phosphatase Total Protein Albumin Globulin Albumin/Globulin Ratio Venous Blood Potassium 02/28/18 02/28/18 02/28/18 07:31 08:00 08:00 WBC RBC Hgb Hct MCV MCH MCHC RDW Plt Count MPV D-Dimer, Quantitative pCO2 pO2 132 H HCO3 ABG pH ABG Total CO2 ABG O2 Saturation ABG O2 Content ABG Base Excess ABG Hemoglobin ABG Carboxyhemoglobin POC ABG HHb (Measured) ABG Methemoglobin ABG O2 Capacity VBG pH 7.54 H VBG pCO2 32.0 L VBG HCO3 27.4 VBG Total CO2 28.4 H VBG O2 Sat (Calc) 98.7 H VBG Base Excess 5.2 H VBG Potassium 2.6 L Hgb O2 Saturation Sodium 137.0 138 Chloride 104.0 99 Glucose 271 H Lactate 1.9 FiO2 21.0 Potassium 2.7 L* Carbon Dioxide 26 Anion Gap 15 BUN 23 H Creatinine 0.7 Est GFR ( Amer) > 60 Est GFR (Non-Af Amer) > 60 POC Glucose (mg/dL) 278 H Random Glucose 248 H Calcium 7.9 L Phosphorus Magnesium Total Bilirubin AST ALT Alkaline Phosphatase Total Protein Albumin Globulin Albumin/Globulin Ratio Venous Blood Potassium 2.6 L 02/28/18 02/28/18 09:37 11:00 WBC RBC Hgb Hct MCV MCH MCHC RDW Plt Count MPV D-Dimer, Quantitative 358 H pCO2 pO2 97 H HCO3 ABG pH ABG Total CO2 ABG O2 Saturation ABG O2 Content ABG Base Excess ABG Hemoglobin ABG Carboxyhemoglobin POC ABG HHb (Measured) ABG Methemoglobin ABG O2 Capacity VBG pH 7.48 H VBG pCO2 34.0 L VBG HCO3 25.3 VBG Total CO2 26.3 VBG O2 Sat (Calc) 99.0 H VBG Base Excess 2.2 H VBG Potassium 3.2 L Hgb O2 Saturation Sodium 136.0 Chloride 103.0 Glucose 262 H Lactate 1.5 FiO2 21.0 Potassium Carbon Dioxide Anion Gap BUN Creatinine Est GFR ( Amer) Est GFR (Non-Af Amer) POC Glucose (mg/dL) Random Glucose Calcium Phosphorus Magnesium Total Bilirubin AST ALT Alkaline Phosphatase Total Protein Albumin Globulin Albumin/Globulin Ratio Venous Blood Potassium 3.2 L EKG/Cardiology Studies: Cardiology / EKG Studies 02/27/18 17:55 EKG [ELECTROCARDIOGRAM] Stat Comment: Reason For Exam: tachycardia Fingerstick Blood Sugar Results: 220 Review of Systems - Review of Systems All systems: reviewed and no additional remarkable complaints except (as per HPI ) Critical Care Progress Note - Prophylaxis GI Prophylaxis GI: PPI - Nutrition Nutrition: Nutrition Category Date Time Status Consistent Carbohydrate [DIET] Diets 02/28/18 Breakfast Ordered Assessment/Plan - Assessment and Plan (Free Text) Assessment: This is a 62 year old female who was brought to the ED on 02/23 by EMS from a cruise ship. Pt was diagnosed with DKA while on a cruise ship coming back from [facility]. Pt was being managed on the for DKA with Insulin SC. She also received a endoscopy due to nausea and vomiting, which showed candidiasis esophagitis and gastritis. This may be what triggers the pt to develop DKA. Pt began feeling worse on 02/27, and was noted to be in severe metabolic acidosis ( pH 7.03, pCO2 11, bicarb 5), lactate 5.9 on VBG. Pt has leukocytosis as well, ID following. Pt also noted to be in HARSHA, as Cr has increased by 0.5 in the past 48 hours. Currently 1.1. Pt was transferred to the ICU for DKA management with insulin gtt. DDimer elevated at 535, bilateral lower extremity doppler were negative for DVT. Plan: Neuro: - continue to monitor for mental status changes - Pt is AAOx3 at baseline Cardio: - Pt is hemodynamically stable - Pt has a history of MVP; would like to assess for mitral valve regurgitation due to amount of fluid pt has received - Will f/u with echocardiogram - will continue to maintain MAP>65 mmHg Pulm: - ABG shows resolution of acidemia - BPAP has been discontinued and spo2>90% on NC 2L, no respiratory distress or increased work of breathing - HoB > 35 degrees - maintain spo2>90% - CXR (02/27) shows no active disease - f/u with pulm recs GI: - pt is status post Endoscopy (02/27/18); which showed candidiasis esophagitis, gastritis - Diflucan, PTX as per GI - continue CCD - zofran PRN Endo: - AG is 13 - lactate on ABG is WNL at 1.5 - discontinue insulin gtt - discontinue bicarb gtt - maintain euglycemia - Pt restarted on home insulin regimen - Lantus 12 units now, humulog 6 units AC as per Endo - Endo recs appreciated - PMD (Dr. Owen Mcclendon) was notified of pt's hospital stay and no further recommendations were made Renal: - HARSHA is resolved; Cr is 0.7 - maintain euglycemia - LR at 150 mL/hr - continue to replete electrolytes as needed - bicarb has been discontinued to prevent further hypokalemia - will f/u with BMP ID: - possible cause of DKA may be candidiasis esophagitis found on EGD - continue antifungal as per GI - Blood culture x2 negative for the past 4 days - Urine culture final shows no growth - ID recs appreciated Heme: - H/H stable - bilateral lower extremity US (02/27) showed no evidence of DVT bilaterally - DDimer is trending down - will f/u with V/Q scan as per pulmonology - will f/u with daily CBC PPX: PTX for GI; SCDs will be placed since Bilateral lower extremity US was negative for vte Dispo: Pt is no longer in DKA, with normal AG and pH; will continue to be managed in the ICU until electrolytes are normalized Case reviewed and discussed with attending physician, Dr. Haines <Lloyd Haines - Last Filed: 02/28/18 14:36> CCU Objective - Vital Signs / Intake & Output Vital Signs (Last 4 hours): Vital Signs Pulse Resp BP Pulse Ox 02/28/18 11:30 98 H 20 02/28/18 11:22 87 138/54 L 02/28/18 11:20 87 41 H 100 02/28/18 11:10 86 17 100 02/28/18 11:00 87 20 138/54 L 99 02/28/18 10:50 86 16 100 02/28/18 10:40 86 18 100 Intake and Output (Last 8hrs): Intake & Output 07/02/28/18 02/28/18 22:59 06:59 14:59 Intake Total 2 4106 Output Total 1200 Balance 2 2906 Weight 159 lb 7 oz Intake: IV 2 3906 Normosaline bolus 2000 Regular Insulin 79 Right Wrist 1800 Other 200 Output: Urine 1200 Urine, Voided 1200 Stool 0 Other: # Voids Urine, Voided 3 - Medications Active Medications: Active Medications Generic Name Dose Route Start Last Admin Trade Name Freq PRN Reason Stop Dose Admin Diltiazem HCl 120 mg 02/24/18 10:00 02/28/18 11:22 Cardizem Cd PO 120 mg DAILY KARAN Administration Fluconazole 100 mg 02/27/18 14:00 02/28/18 11:22 Diflucan PO 03/27/18 23:59 100 mg DAILY KARAN Administration Protocol Home Med 12 unit 02/28/18 07:55 Home Med SC HS KARAN Home Med 6 unit 02/28/18 11:30 Home Med SC AC KARAN Lactated Ringer's 1,000 mls @ 150 mls/hr 02/28/18 08:00 02/28/18 08:49 Lactated Ringer's IV 150 mls/hr .[id number] KARAN Administration Insulin Detemir 6 unit 02/28/18 08:30 02/28/18 09:03 Levemir SC 6 u STAT KARAN Administration Insulin Human Lispro 0 units 02/26/18 11:30 02/28/18 08:59 Humalog Low SC Not Given ACHS KARAN Protocol Metoclopramide HCl 10 mg 02/24/18 11:30 02/28/18 07:37 Reglan IVP 10 mg ACHS KARAN Administration Metoprolol Tartrate 12.5 mg 02/24/18 17:00 02/28/18 07:48 Lopressor PO 12.5 mg BRKDIN KARAN Administration Ondansetron HCl 4 mg 02/24/18 17:59 02/28/18 11:31 Zofran Inj IVP 4 mg Q4H PRN Administration Nausea/Vomiting Pantoprazole Sodium 40 mg 02/27/18 16:00 02/28/18 07:48 Protonix Ec Tab PO 40 mg 0600,1600 KARAN Administration Ramipril 1.25 mg 02/24/18 10:00 02/27/18 09:46 Altace PO Not Given DAILY KARAN Vitamin A 1 ea 02/27/18 15:45 Vitamin A & D Oint Ud Foilpak TOP Q2 PRN Dry mouth - Patient Studies Lab Studies: Microbiology Studies 02/23/18 13:56 Blood Culture - Final Blood-Venous NO GROWTH AFTER 5 DAYS 02/23/18 13:56 Blood Culture - Final Blood-Venous NO GROWTH AFTER 5 DAYS Gram Stain - Final TEST NOT PERFORMED Lab Studies 02/28/18 02/28/18 02/28/18 Range/Units 11:00 09:37 08:00 WBC (4.5-11.0) 10^3/ul RBC (3.5-6.1) 10^6/uL Hgb (12.0-16.0) g/dL Hct (36.0-48.0) % MCV (80.0-105.0) fl MCH (25.0-35.0) pg MCHC (31.0-37.0) g/dl RDW (11.5-14.5) % Plt Count (120.0-450.0) 10^3/uL MPV (7.0-11.0) fl D-Dimer, Quantitative 358 H (0-243) ng/mL pCO2 (35-45) mm/Hg pO2 97 H (80-100) mm/Hg HCO3 (21-28) mmol/L ABG pH (7.35-7.45) ABG Total CO2 (22-28) mmol.L ABG O2 Saturation (95-98) % ABG O2 Content (15-23) ML/dl ABG Base Excess (-2.0-3.0) mmol/L ABG Hemoglobin (11.7-17.4) g/dL ABG Carboxyhemoglobin (0.5-1.5) % POC ABG HHb (Measured) (0-5) % ABG Methemoglobin (0.0-3.0) % ABG O2 Capacity (16-24) mL/dl VBG pH 7.48 H (7.32-7.43) VBG pCO2 34.0 L (40-60) VBG HCO3 25.3 (21-28) mmol/l VBG Total CO2 26.3 (22-28) mmol.L VBG O2 Sat (Calc) 99.0 H (40-65) % VBG Base Excess 2.2 H (0.0-2.0) mmol/L VBG Potassium 3.2 L (3.6-5.2) mmol/L Hgb O2 Saturation (95.0-98.0) % Sodium 136.0 138 (132-148) mmol/L Chloride 103.0 99 (98-107) mmol/L Glucose 262 H (65-105) mg/dl Lactate 1.5 (0.7-2.1) mmol/L FiO2 21.0 % Potassium 2.7 L* (3.6-5.0) mmol/L Carbon Dioxide 26 (21-33) mmol/L Anion Gap 15 (10-20) BUN 23 H (7-21) mg/dL Creatinine 0.7 (0.7-1.2) mg/dl Est GFR ( Amer) > 60 Est GFR (Non-Af Amer) > 60 POC Glucose (mg/dL) (65-110) mg/dL Random Glucose 248 H (70-110) mg/dL Calcium 7.9 L (8.4-10.5) mg/dL Phosphorus (2.5-4.5) mg/dL Magnesium (1.7-2.2) mg/dL Total Bilirubin (0.2-1.3) mg/dL AST (14-36) U/L ALT (7-56) U/L Alkaline Phosphatase (38-126) U/L Total Protein (5.8-8.3) g/dL Albumin (3.0-4.8) g/dL Globulin gm/dL Albumin/Globulin Ratio (1.1-1.8) Venous Blood Potassium 3.2 L (3.6-5.2) mmol/L 02/28/18 02/28/18 02/28/18 Range/Units 08:00 07:31 06:14 WBC (4.5-11.0) 10^3/ul RBC (3.5-6.1) 10^6/uL Hgb (12.0-16.0) g/dL Hct (36.0-48.0) % MCV (80.0-105.0) fl MCH (25.0-35.0) pg MCHC (31.0-37.0) g/dl RDW (11.5-14.5) % Plt Count (120.0-450.0) 10^3/uL MPV (7.0-11.0) fl D-Dimer, Quantitative (0-243) ng/mL pCO2 (35-45) mm/Hg pO2 132 H (80-100) mm/Hg HCO3 (21-28) mmol/L ABG pH (7.35-7.45) ABG Total CO2 (22-28) mmol.L ABG O2 Saturation (95-98) % ABG O2 Content (15-23) ML/dl ABG Base Excess (-2.0-3.0) mmol/L ABG Hemoglobin (11.7-17.4) g/dL ABG Carboxyhemoglobin (0.5-1.5) % POC ABG HHb (Measured) (0-5) % ABG Methemoglobin (0.0-3.0) % ABG O2 Capacity (16-24) mL/dl VBG pH 7.54 H (7.32-7.43) VBG pCO2 32.0 L (40-60) VBG HCO3 27.4 (21-28) mmol/l VBG Total CO2 28.4 H (22-28) mmol.L VBG O2 Sat (Calc) 98.7 H (40-65) % VBG Base Excess 5.2 H (0.0-2.0) mmol/L VBG Potassium 2.6 L (3.6-5.2) mmol/L Hgb O2 Saturation (95.0-98.0) % Sodium 137.0 (132-148) mmol/L Chloride 104.0 (98-107) mmol/L Glucose 271 H (65-105) mg/dl Lactate 1.9 (0.7-2.1) mmol/L FiO2 21.0 % Potassium (3.6-5.0) mmol/L Carbon Dioxide (21-33) mmol/L Anion Gap (10-20) BUN (7-21) mg/dL Creatinine (0.7-1.2) mg/dl Est GFR ( Amer) Est GFR (Non-Af Amer) POC Glucose (mg/dL) 278 H 284 H (65-110) mg/dL Random Glucose (70-110) mg/dL Calcium (8.4-10.5) mg/dL Phosphorus (2.5-4.5) mg/dL Magnesium (1.7-2.2) mg/dL Total Bilirubin (0.2-1.3) mg/dL AST (14-36) U/L ALT (7-56) U/L Alkaline Phosphatase (38-126) U/L Total Protein (5.8-8.3) g/dL Albumin (3.0-4.8) g/dL Globulin gm/dL Albumin/Globulin Ratio (1.1-1.8) Venous Blood Potassium 2.6 L (3.6-5.2) mmol/L 02/28/18 02/28/18 02/28/18 Range/Units 05:29 04:39 04:00 WBC (4.5-11.0) 10^3/ul RBC (3.5-6.1) 10^6/uL Hgb (12.0-16.0) g/dL Hct (36.0-48.0) % MCV (80.0-105.0) fl MCH (25.0-35.0) pg MCHC (31.0-37.0) g/dl RDW (11.5-14.5) % Plt Count (120.0-450.0) 10^3/uL MPV (7.0-11.0) fl D-Dimer, Quantitative (0-243) ng/mL pCO2 (35-45) mm/Hg pO2 38 (80-100) mm/Hg HCO3 (21-28) mmol/L ABG pH (7.35-7.45) ABG Total CO2 (22-28) mmol.L ABG O2 Saturation (95-98) % ABG O2 Content (15-23) ML/dl ABG Base Excess (-2.0-3.0) mmol/L ABG Hemoglobin (11.7-17.4) g/dL ABG Carboxyhemoglobin (0.5-1.5) % POC ABG HHb (Measured) (0-5) % ABG Methemoglobin (0.0-3.0) % ABG O2 Capacity (16-24) mL/dl VBG pH 7.40 (7.32-7.43) VBG pCO2 33.0 L (40-60) VBG HCO3 20.4 L (21-28) mmol/l VBG Total CO2 21.4 L (22-28) mmol.L VBG O2 Sat (Calc) 86.0 H (40-65) % VBG Base Excess -3.6 L (0.0-2.0) mmol/L VBG Potassium 2.5 L* (3.6-5.2) mmol/L Hgb O2 Saturation (95.0-98.0) % Sodium 135.0 (132-148) mmol/L Chloride 102.0 (98-107) mmol/L Glucose 356 H (65-105) mg/dl Lactate 2.2 H (0.7-2.1) mmol/L FiO2 21.0 % Potassium (3.6-5.0) mmol/L Carbon Dioxide (21-33) mmol/L Anion Gap (10-20) BUN (7-21) mg/dL Creatinine (0.7-1.2) mg/dl Est GFR ( Amer) Est GFR (Non-Af Amer) POC Glucose (mg/dL) 273 H 305 H (65-110) mg/dL Random Glucose (70-110) mg/dL Calcium (8.4-10.5) mg/dL Phosphorus (2.5-4.5) mg/dL Magnesium (1.7-2.2) mg/dL Total Bilirubin (0.2-1.3) mg/dL AST (14-36) U/L ALT (7-56) U/L Alkaline Phosphatase (38-126) U/L Total Protein (5.8-8.3) g/dL Albumin (3.0-4.8) g/dL Globulin gm/dL Albumin/Globulin Ratio (1.1-1.8) Venous Blood Potassium 2.5 L* (3.6-5.2) mmol/L 02/28/18 02/28/18 02/28/18 Range/Units 04:00 04:00 03:37 WBC 16.4 H D (4.5-11.0) 10^3/ul RBC 3.64 (3.5-6.1) 10^6/uL Hgb 10.8 L (12.0-16.0) g/dL Hct 30.7 L (36.0-48.0) % MCV 84.3 (80.0-105.0) fl MCH 29.7 (25.0-35.0) pg MCHC 35.2 (31.0-37.0) g/dl RDW 14.1 (11.5-14.5) % Plt Count 251 (120.0-450.0) 10^3/uL MPV 11.2 H (7.0-11.0) fl D-Dimer, Quantitative (0-243) ng/mL pCO2 (35-45) mm/Hg pO2 (80-100) mm/Hg HCO3 (21-28) mmol/L ABG pH (7.35-7.45) ABG Total CO2 (22-28) mmol.L ABG O2 Saturation (95-98) % ABG O2 Content (15-23) ML/dl ABG Base Excess (-2.0-3.0) mmol/L ABG Hemoglobin (11.7-17.4) g/dL ABG Carboxyhemoglobin (0.5-1.5) % POC ABG HHb (Measured) (0-5) % ABG Methemoglobin (0.0-3.0) % ABG O2 Capacity (16-24) mL/dl VBG pH (7.32-7.43) VBG pCO2 (40-60) VBG HCO3 (21-28) mmol/l VBG Total CO2 (22-28) mmol.L VBG O2 Sat (Calc) (40-65) % VBG Base Excess (0.0-2.0) mmol/L VBG Potassium (3.6-5.2) mmol/L Hgb O2 Saturation (95.0-98.0) % Sodium 139 (132-148) mmol/L Chloride 101 (98-107) mmol/L Glucose (65-105) mg/dl Lactate (0.7-2.1) mmol/L FiO2 % Potassium 2.6 L* (3.6-5.0) mmol/L Carbon Dioxide 21 (21-33) mmol/L Anion Gap 19 (10-20) BUN 25 H (7-21) mg/dL Creatinine 0.9 (0.7-1.2) mg/dl Est GFR ( Amer) > 60 Est GFR (Non-Af Amer) > 60 POC Glucose (mg/dL) 337 H (65-110) mg/dL Random Glucose 328 H* D (70-110) mg/dL Calcium 8.1 L (8.4-10.5) mg/dL Phosphorus < 0.5 L* (2.5-4.5) mg/dL Magnesium 2.0 (1.7-2.2) mg/dL Total Bilirubin 0.6 (0.2-1.3) mg/dL AST 37 H D (14-36) U/L ALT 31 (7-56) U/L Alkaline Phosphatase 73 (38-126) U/L Total Protein 5.9 (5.8-8.3) g/dL Albumin 3.3 (3.0-4.8) g/dL Globulin 2.6 gm/dL Albumin/Globulin Ratio 1.3 (1.1-1.8) Venous Blood Potassium (3.6-5.2) mmol/L 02/28/18 02/28/18 02/28/18 Range/Units 02:43 01:23 00:50 WBC (4.5-11.0) 10^3/ul RBC (3.5-6.1) 10^6/uL Hgb (12.0-16.0) g/dL Hct (36.0-48.0) % MCV (80.0-105.0) fl MCH (25.0-35.0) pg MCHC (31.0-37.0) g/dl RDW (11.5-14.5) % Plt Count (120.0-450.0) 10^3/uL MPV (7.0-11.0) fl D-Dimer, Quantitative (0-243) ng/mL pCO2 (35-45) mm/Hg pO2 (80-100) mm/Hg HCO3 (21-28) mmol/L ABG pH (7.35-7.45) ABG Total CO2 (22-28) mmol.L ABG O2 Saturation (95-98) % ABG O2 Content (15-23) ML/dl ABG Base Excess (-2.0-3.0) mmol/L ABG Hemoglobin (11.7-17.4) g/dL ABG Carboxyhemoglobin (0.5-1.5) % POC ABG HHb (Measured) (0-5) % ABG Methemoglobin (0.0-3.0) % ABG O2 Capacity (16-24) mL/dl VBG pH (7.32-7.43) VBG pCO2 (40-60) VBG HCO3 (21-28) mmol/l VBG Total CO2 (22-28) mmol.L VBG O2 Sat (Calc) (40-65) % VBG Base Excess (0.0-2.0) mmol/L VBG Potassium (3.6-5.2) mmol/L Hgb O2 Saturation (95.0-98.0) % Sodium 136 (132-148) mmol/L Chloride 101 (98-107) mmol/L Glucose (65-105) mg/dl Lactate (0.7-2.1) mmol/L FiO2 % Potassium 2.9 L* D (3.6-5.0) mmol/L Carbon Dioxide 12 L (21-33) mmol/L Anion Gap 27 H (10-20) BUN 26 H (7-21) mg/dL Creatinine 1.1 (0.7-1.2) mg/dl Est GFR ( Amer) > 60 Est GFR (Non-Af Amer) 51 POC Glucose (mg/dL) 358 H 396 H (65-110) mg/dL Random Glucose 421 H* D (70-110) mg/dL Calcium 8.0 L (8.4-10.5) mg/dL Phosphorus (2.5-4.5) mg/dL Magnesium (1.7-2.2) mg/dL Total Bilirubin (0.2-1.3) mg/dL AST (14-36) U/L ALT (7-56) U/L Alkaline Phosphatase (38-126) U/L Total Protein (5.8-8.3) g/dL Albumin (3.0-4.8) g/dL Globulin gm/dL Albumin/Globulin Ratio (1.1-1.8) Venous Blood Potassium (3.6-5.2) mmol/L 02/28/18 02/28/18 02/27/18 Range/Units 00:50 00:17 22:49 WBC (4.5-11.0) 10^3/ul RBC (3.5-6.1) 10^6/uL Hgb (12.0-16.0) g/dL Hct (36.0-48.0) % MCV (80.0-105.0) fl MCH (25.0-35.0) pg MCHC (31.0-37.0) g/dl RDW (11.5-14.5) % Plt Count (120.0-450.0) 10^3/uL MPV (7.0-11.0) fl D-Dimer, Quantitative (0-243) ng/mL pCO2 (35-45) mm/Hg pO2 25 L (80-100) mm/Hg HCO3 (21-28) mmol/L ABG pH (7.35-7.45) ABG Total CO2 (22-28) mmol.L ABG O2 Saturation (95-98) % ABG O2 Content (15-23) ML/dl ABG Base Excess (-2.0-3.0) mmol/L ABG Hemoglobin (11.7-17.4) g/dL ABG Carboxyhemoglobin (0.5-1.5) % POC ABG HHb (Measured) (0-5) % ABG Methemoglobin (0.0-3.0) % ABG O2 Capacity (16-24) mL/dl VBG pH 7.28 L (7.32-7.43) VBG pCO2 27.0 L (40-60) VBG HCO3 12.7 L (21-28) mmol/l VBG Total CO2 13.5 L (22-28) mmol.L VBG O2 Sat (Calc) 64.6 (40-65) % VBG Base Excess -12.4 L (0.0-2.0) mmol/L VBG Potassium 2.8 L (3.6-5.2) mmol/L Hgb O2 Saturation (95.0-98.0) % Sodium 135.0 (132-148) mmol/L Chloride 99.0 (98-107) mmol/L Glucose 460 H* D (65-105) mg/dl Lactate 2.3 H (0.7-2.1) mmol/L FiO2 21.0 % Potassium (3.6-5.0) mmol/L Carbon Dioxide (21-33) mmol/L Anion Gap (10-20) BUN (7-21) mg/dL Creatinine (0.7-1.2) mg/dl Est GFR ( Amer) Est GFR (Non-Af Amer) POC Glucose (mg/dL) 406 H* 461 H* (65-110) mg/dL Random Glucose (70-110) mg/dL Calcium (8.4-10.5) mg/dL Phosphorus (2.5-4.5) mg/dL Magnesium (1.7-2.2) mg/dL Total Bilirubin (0.2-1.3) mg/dL AST (14-36) U/L ALT (7-56) U/L Alkaline Phosphatase (38-126) U/L Total Protein (5.8-8.3) g/dL Albumin (3.0-4.8) g/dL Globulin gm/dL Albumin/Globulin Ratio (1.1-1.8) Venous Blood Potassium 2.8 L (3.6-5.2) mmol/L 02/27/18 02/27/18 02/27/18 Range/Units 22:08 21:05 20:14 WBC (4.5-11.0) 10^3/ul RBC (3.5-6.1) 10^6/uL Hgb (12.0-16.0) g/dL Hct (36.0-48.0) % MCV (80.0-105.0) fl MCH (25.0-35.0) pg MCHC (31.0-37.0) g/dl RDW (11.5-14.5) % Plt Count (120.0-450.0) 10^3/uL MPV (7.0-11.0) fl D-Dimer, Quantitative (0-243) ng/mL pCO2 (35-45) mm/Hg pO2 (80-100) mm/Hg HCO3 (21-28) mmol/L ABG pH (7.35-7.45) ABG Total CO2 (22-28) mmol.L ABG O2 Saturation (95-98) % ABG O2 Content (15-23) ML/dl ABG Base Excess (-2.0-3.0) mmol/L ABG Hemoglobin (11.7-17.4) g/dL ABG Carboxyhemoglobin (0.5-1.5) % POC ABG HHb (Measured) (0-5) % ABG Methemoglobin (0.0-3.0) % ABG O2 Capacity (16-24) mL/dl VBG pH (7.32-7.43) VBG pCO2 (40-60) VBG HCO3 (21-28) mmol/l VBG Total CO2 (22-28) mmol.L VBG O2 Sat (Calc) (40-65) % VBG Base Excess (0.0-2.0) mmol/L VBG Potassium (3.6-5.2) mmol/L Hgb O2 Saturation (95.0-98.0) % Sodium 136 (132-148) mmol/L Chloride 102 (98-107) mmol/L Glucose (65-105) mg/dl Lactate (0.7-2.1) mmol/L FiO2 % Potassium 3.7 (3.6-5.0) mmol/L Carbon Dioxide 5 L (21-33) mmol/L Anion Gap 33 H (10-20) BUN 22 H (7-21) mg/dL Creatinine 1.2 (0.7-1.2) mg/dl Est GFR ( Amer) 55 Est GFR (Non-Af Amer) 46 POC Glucose (mg/dL) 468 H* 499 H* (65-110) mg/dL Random Glucose 545 H* (70-110) mg/dL Calcium 7.8 L (8.4-10.5) mg/dL Phosphorus (2.5-4.5) mg/dL Magnesium (1.7-2.2) mg/dL Total Bilirubin (0.2-1.3) mg/dL AST (14-36) U/L ALT (7-56) U/L Alkaline Phosphatase (38-126) U/L Total Protein (5.8-8.3) g/dL Albumin (3.0-4.8) g/dL Globulin gm/dL Albumin/Globulin Ratio (1.1-1.8) Venous Blood Potassium (3.6-5.2) mmol/L 02/27/18 02/27/18 02/27/18 Range/Units 20:14 19:56 19:05 WBC (4.5-11.0) 10^3/ul RBC (3.5-6.1) 10^6/uL Hgb (12.0-16.0) g/dL Hct (36.0-48.0) % MCV (80.0-105.0) fl MCH (25.0-35.0) pg MCHC (31.0-37.0) g/dl RDW (11.5-14.5) % Plt Count (120.0-450.0) 10^3/uL MPV (7.0-11.0) fl D-Dimer, Quantitative (0-243) ng/mL pCO2 (35-45) mm/Hg pO2 87 H (80-100) mm/Hg HCO3 (21-28) mmol/L ABG pH (7.35-7.45) ABG Total CO2 (22-28) mmol.L ABG O2 Saturation (95-98) % ABG O2 Content (15-23) ML/dl ABG Base Excess (-2.0-3.0) mmol/L ABG Hemoglobin (11.7-17.4) g/dL ABG Carboxyhemoglobin (0.5-1.5) % POC ABG HHb (Measured) (0-5) % ABG Methemoglobin (0.0-3.0) % ABG O2 Capacity (16-24) mL/dl VBG pH 6.91 L* (7.32-7.43) VBG pCO2 19.0 L* (40-60) VBG HCO3 3.8 L (21-28) mmol/l VBG Total CO2 4.4 L (22-28) mmol.L VBG O2 Sat (Calc) 97.3 H (40-65) % VBG Base Excess -27.8 L (0.0-2.0) mmol/L VBG Potassium 3.6 (3.6-5.2) mmol/L Hgb O2 Saturation (95.0-98.0) % Sodium 134.0 (132-148) mmol/L Chloride 98.0 (98-107) mmol/L Glucose 580 H* (65-105) mg/dl Lactate 4.3 H* (0.7-2.1) mmol/L FiO2 21.0 % Potassium (3.6-5.0) mmol/L Carbon Dioxide (21-33) mmol/L Anion Gap (10-20) BUN (7-21) mg/dL Creatinine (0.7-1.2) mg/dl Est GFR ( Amer) Est GFR (Non-Af Amer) POC Glucose (mg/dL) > 500 H* > 500 H* (65-110) mg/dL Random Glucose (70-110) mg/dL Calcium (8.4-10.5) mg/dL Phosphorus (2.5-4.5) mg/dL Magnesium (1.7-2.2) mg/dL Total Bilirubin (0.2-1.3) mg/dL AST (14-36) U/L ALT (7-56) U/L Alkaline Phosphatase (38-126) U/L Total Protein (5.8-8.3) g/dL Albumin (3.0-4.8) g/dL Globulin gm/dL Albumin/Globulin Ratio (1.1-1.8) Venous Blood Potassium 3.6 (3.6-5.2) mmol/L 02/27/18 02/27/18 02/27/18 Range/Units 18:18 16:39 16:39 WBC (4.5-11.0) 10^3/ul RBC (3.5-6.1) 10^6/uL Hgb (12.0-16.0) g/dL Hct (36.0-48.0) % MCV (80.0-105.0) fl MCH (25.0-35.0) pg MCHC (31.0-37.0) g/dl RDW (11.5-14.5) % Plt Count (120.0-450.0) 10^3/uL MPV (7.0-11.0) fl D-Dimer, Quantitative (0-243) ng/mL pCO2 (35-45) mm/Hg pO2 116 H (80-100) mm/Hg HCO3 (21-28) mmol/L ABG pH (7.35-7.45) ABG Total CO2 (22-28) mmol.L ABG O2 Saturation (95-98) % ABG O2 Content (15-23) ML/dl ABG Base Excess (-2.0-3.0) mmol/L ABG Hemoglobin (11.7-17.4) g/dL ABG Carboxyhemoglobin (0.5-1.5) % POC ABG HHb (Measured) (0-5) % ABG Methemoglobin (0.0-3.0) % ABG O2 Capacity (16-24) mL/dl VBG pH 6.87 L* (7.32-7.43) VBG pCO2 18.0 L* (40-60) VBG HCO3 3.3 L (21-28) mmol/l VBG Total CO2 3.9 L (22-28) mmol.L VBG O2 Sat (Calc) 98.4 H (40-65) % VBG Base Excess -29.1 L (0.0-2.0) mmol/L VBG Potassium 4.4 (3.6-5.2) mmol/L Hgb O2 Saturation (95.0-98.0) % Sodium 132.0 135 (132-148) mmol/L Chloride 98.0 101 (98-107) mmol/L Glucose 570 H* (65-105) mg/dl Lactate 5.9 H* (0.7-2.1) mmol/L FiO2 21.0 % Potassium 4.9 (3.6-5.0) mmol/L Carbon Dioxide 5 L D (21-33) mmol/L Anion Gap 34 H (10-20) BUN 20 (7-21) mg/dL Creatinine 1.1 (0.7-1.2) mg/dl Est GFR ( Amer) > 60 Est GFR (Non-Af Amer) 51 POC Glucose (mg/dL) > 500 H* (65-110) mg/dL Random Glucose 535 H* D (70-110) mg/dL Calcium 8.3 L (8.4-10.5) mg/dL Phosphorus (2.5-4.5) mg/dL Magnesium (1.7-2.2) mg/dL Total Bilirubin (0.2-1.3) mg/dL AST (14-36) U/L ALT (7-56) U/L Alkaline Phosphatase (38-126) U/L Total Protein (5.8-8.3) g/dL Albumin (3.0-4.8) g/dL Globulin gm/dL Albumin/Globulin Ratio (1.1-1.8) Venous Blood Potassium 4.4 (3.6-5.2) mmol/L 02/27/18 02/27/18 02/27/18 Range/Units 16:17 15:30 15:00 WBC (4.5-11.0) 10^3/ul RBC (3.5-6.1) 10^6/uL Hgb (12.0-16.0) g/dL Hct (36.0-48.0) % MCV (80.0-105.0) fl MCH (25.0-35.0) pg MCHC (31.0-37.0) g/dl RDW (11.5-14.5) % Plt Count (120.0-450.0) 10^3/uL MPV (7.0-11.0) fl D-Dimer, Quantitative 594 H (0-243) ng/mL pCO2 11 L* (35-45) mm/Hg pO2 142.0 H (80-100) mm/Hg HCO3 2.9 L* (21-28) mmol/L ABG pH 7.03 L* (7.35-7.45) ABG Total CO2 3.2 L (22-28) mmol.L ABG O2 Saturation 99.6 H (95-98) % ABG O2 Content 15.6 (15-23) ML/dl ABG Base Excess -25.9 L (-2.0-3.0) mmol/L ABG Hemoglobin 11.2 L (11.7-17.4) g/dL ABG Carboxyhemoglobin 1.2 (0.5-1.5) % POC ABG HHb (Measured) 0.4 (0-5) % ABG Methemoglobin 1.0 (0.0-3.0) % ABG O2 Capacity 15.7 L (16-24) mL/dl VBG pH (7.32-7.43) VBG pCO2 (40-60) VBG HCO3 (21-28) mmol/l VBG Total CO2 (22-28) mmol.L VBG O2 Sat (Calc) (40-65) % VBG Base Excess (0.0-2.0) mmol/L VBG Potassium (3.6-5.2) mmol/L Hgb O2 Saturation 97.4 (95.0-98.0) % Sodium (132-148) mmol/L Chloride (98-107) mmol/L Glucose (65-105) mg/dl Lactate (0.7-2.1) mmol/L FiO2 28.0 % Potassium (3.6-5.0) mmol/L Carbon Dioxide (21-33) mmol/L Anion Gap (10-20) BUN (7-21) mg/dL Creatinine (0.7-1.2) mg/dl Est GFR ( Amer) Est GFR (Non-Af Amer) POC Glucose (mg/dL) 397 H (65-110) mg/dL Random Glucose (70-110) mg/dL Calcium (8.4-10.5) mg/dL Phosphorus (2.5-4.5) mg/dL Magnesium (1.7-2.2) mg/dL Total Bilirubin (0.2-1.3) mg/dL AST (14-36) U/L ALT (7-56) U/L Alkaline Phosphatase (38-126) U/L Total Protein (5.8-8.3) g/dL Albumin (3.0-4.8) g/dL Globulin gm/dL Albumin/Globulin Ratio (1.1-1.8) Venous Blood Potassium (3.6-5.2) mmol/L Laboratory Results - last 24 hr 02/27/18 02/27/18 02/27/18 15:00 15:30 16:17 WBC RBC Hgb Hct MCV MCH MCHC RDW Plt Count MPV D-Dimer, Quantitative 594 H pCO2 11 L* pO2 142.0 H HCO3 2.9 L* ABG pH 7.03 L* ABG Total CO2 3.2 L ABG O2 Saturation 99.6 H ABG O2 Content 15.6 ABG Base Excess -25.9 L ABG Hemoglobin 11.2 L ABG Carboxyhemoglobin 1.2 POC ABG HHb (Measured) 0.4 ABG Methemoglobin 1.0 ABG O2 Capacity 15.7 L VBG pH VBG pCO2 VBG HCO3 VBG Total CO2 VBG O2 Sat (Calc) VBG Base Excess VBG Potassium Hgb O2 Saturation 97.4 Sodium Chloride Glucose Lactate FiO2 28.0 Potassium Carbon Dioxide Anion Gap BUN Creatinine Est GFR ( Amer) Est GFR (Non-Af Amer) POC Glucose (mg/dL) 397 H Random Glucose Calcium Phosphorus Magnesium Total Bilirubin AST ALT Alkaline Phosphatase Total Protein Albumin Globulin Albumin/Globulin Ratio Venous Blood Potassium 02/27/18 02/27/18 02/27/18 16:39 16:39 18:18 WBC RBC Hgb Hct MCV MCH MCHC RDW Plt Count MPV D-Dimer, Quantitative pCO2 pO2 116 H HCO3 ABG pH ABG Total CO2 ABG O2 Saturation ABG O2 Content ABG Base Excess ABG Hemoglobin ABG Carboxyhemoglobin POC ABG HHb (Measured) ABG Methemoglobin ABG O2 Capacity VBG pH 6.87 L* VBG pCO2 18.0 L* VBG HCO3 3.3 L VBG Total CO2 3.9 L VBG O2 Sat (Calc) 98.4 H VBG Base Excess -29.1 L VBG Potassium 4.4 Hgb O2 Saturation Sodium 135 132.0 Chloride 101 98.0 Glucose 570 H* Lactate 5.9 H* FiO2 21.0 Potassium 4.9 Carbon Dioxide 5 L D Anion Gap 34 H BUN 20 Creatinine 1.1 Est GFR ( Amer) > 60 Est GFR (Non-Af Amer) 51 POC Glucose (mg/dL) > 500 H* Random Glucose 535 H* D Calcium 8.3 L Phosphorus Magnesium Total Bilirubin AST ALT Alkaline Phosphatase Total Protein Albumin Globulin Albumin/Globulin Ratio Venous Blood Potassium 4.4 02/27/18 02/27/18 02/27/18 19:05 19:56 20:14 WBC RBC Hgb Hct MCV MCH MCHC RDW Plt Count MPV D-Dimer, Quantitative pCO2 pO2 87 H HCO3 ABG pH ABG Total CO2 ABG O2 Saturation ABG O2 Content ABG Base Excess ABG Hemoglobin ABG Carboxyhemoglobin POC ABG HHb (Measured) ABG Methemoglobin ABG O2 Capacity VBG pH 6.91 L* VBG pCO2 19.0 L* VBG HCO3 3.8 L VBG Total CO2 4.4 L VBG O2 Sat (Calc) 97.3 H VBG Base Excess -27.8 L VBG Potassium 3.6 Hgb O2 Saturation Sodium 134.0 Chloride 98.0 Glucose 580 H* Lactate 4.3 H* FiO2 21.0 Potassium Carbon Dioxide Anion Gap BUN Creatinine Est GFR ( Amer) Est GFR (Non-Af Amer) POC Glucose (mg/dL) > 500 H* > 500 H* Random Glucose Calcium Phosphorus Magnesium Total Bilirubin AST ALT Alkaline Phosphatase Total Protein Albumin Globulin Albumin/Globulin Ratio Venous Blood Potassium 3.6 02/27/18 02/27/18 02/27/18 20:14 21:05 22:08 WBC RBC Hgb Hct MCV MCH MCHC RDW Plt Count MPV D-Dimer, Quantitative pCO2 pO2 HCO3 ABG pH ABG Total CO2 ABG O2 Saturation ABG O2 Content ABG Base Excess ABG Hemoglobin ABG Carboxyhemoglobin POC ABG HHb (Measured) ABG Methemoglobin ABG O2 Capacity VBG pH VBG pCO2 VBG HCO3 VBG Total CO2 VBG O2 Sat (Calc) VBG Base Excess VBG Potassium Hgb O2 Saturation Sodium 136 Chloride 102 Glucose Lactate FiO2 Potassium 3.7 Carbon Dioxide 5 L Anion Gap 33 H BUN 22 H Creatinine 1.2 Est GFR ( Amer) 55 Est GFR (Non-Af Amer) 46 POC Glucose (mg/dL) 499 H* 468 H* Random Glucose 545 H* Calcium 7.8 L Phosphorus Magnesium Total Bilirubin AST ALT Alkaline Phosphatase Total Protein Albumin Globulin Albumin/Globulin Ratio Venous Blood Potassium 02/27/18 02/28/18 02/28/18 22:49 00:17 00:50 WBC RBC Hgb Hct MCV MCH MCHC RDW Plt Count MPV D-Dimer, Quantitative pCO2 pO2 25 L HCO3 ABG pH ABG Total CO2 ABG O2 Saturation ABG O2 Content ABG Base Excess ABG Hemoglobin ABG Carboxyhemoglobin POC ABG HHb (Measured) ABG Methemoglobin ABG O2 Capacity VBG pH 7.28 L VBG pCO2 27.0 L VBG HCO3 12.7 L VBG Total CO2 13.5 L VBG O2 Sat (Calc) 64.6 VBG Base Excess -12.4 L VBG Potassium 2.8 L Hgb O2 Saturation Sodium 135.0 Chloride 99.0 Glucose 460 H* D Lactate 2.3 H FiO2 21.0 Potassium Carbon Dioxide Anion Gap BUN Creatinine Est GFR ( Amer) Est GFR (Non-Af Amer) POC Glucose (mg/dL) 461 H* 406 H* Random Glucose Calcium Phosphorus Magnesium Total Bilirubin AST ALT Alkaline Phosphatase Total Protein Albumin Globulin Albumin/Globulin Ratio Venous Blood Potassium 2.8 L 02/28/18 02/28/18 02/28/18 00:50 01:23 02:43 WBC RBC Hgb Hct MCV MCH MCHC RDW Plt Count MPV D-Dimer, Quantitative pCO2 pO2 HCO3 ABG pH ABG Total CO2 ABG O2 Saturation ABG O2 Content ABG Base Excess ABG Hemoglobin ABG Carboxyhemoglobin POC ABG HHb (Measured) ABG Methemoglobin ABG O2 Capacity VBG pH VBG pCO2 VBG HCO3 VBG Total CO2 VBG O2 Sat (Calc) VBG Base Excess VBG Potassium Hgb O2 Saturation Sodium 136 Chloride 101 Glucose Lactate FiO2 Potassium 2.9 L* D Carbon Dioxide 12 L Anion Gap 27 H BUN 26 H Creatinine 1.1 Est GFR ( Amer) > 60 Est GFR (Non-Af Amer) 51 POC Glucose (mg/dL) 396 H 358 H Random Glucose 421 H* D Calcium 8.0 L Phosphorus Magnesium Total Bilirubin AST ALT Alkaline Phosphatase Total Protein Albumin Globulin Albumin/Globulin Ratio Venous Blood Potassium 02/28/18 02/28/18 02/28/18 03:37 04:00 04:00 WBC 16.4 H D RBC 3.64 Hgb 10.8 L Hct 30.7 L MCV 84.3 MCH 29.7 MCHC 35.2 RDW 14.1 Plt Count 251 MPV 11.2 H D-Dimer, Quantitative pCO2 pO2 HCO3 ABG pH ABG Total CO2 ABG O2 Saturation ABG O2 Content ABG Base Excess ABG Hemoglobin ABG Carboxyhemoglobin POC ABG HHb (Measured) ABG Methemoglobin ABG O2 Capacity VBG pH VBG pCO2 VBG HCO3 VBG Total CO2 VBG O2 Sat (Calc) VBG Base Excess VBG Potassium Hgb O2 Saturation Sodium 139 Chloride 101 Glucose Lactate FiO2 Potassium 2.6 L* Carbon Dioxide 21 Anion Gap 19 BUN 25 H Creatinine 0.9 Est GFR ( Amer) > 60 Est GFR (Non-Af Amer) > 60 POC Glucose (mg/dL) 337 H Random Glucose 328 H* D Calcium 8.1 L Phosphorus < 0.5 L* Magnesium 2.0 Total Bilirubin 0.6 AST 37 H D ALT 31 Alkaline Phosphatase 73 Total Protein 5.9 Albumin 3.3 Globulin 2.6 Albumin/Globulin Ratio 1.3 Venous Blood Potassium 02/28/18 02/28/18 02/28/18 04:00 04:39 05:29 WBC RBC Hgb Hct MCV MCH MCHC RDW Plt Count MPV D-Dimer, Quantitative pCO2 pO2 38 HCO3 ABG pH ABG Total CO2 ABG O2 Saturation ABG O2 Content ABG Base Excess ABG Hemoglobin ABG Carboxyhemoglobin POC ABG HHb (Measured) ABG Methemoglobin ABG O2 Capacity VBG pH 7.40 VBG pCO2 33.0 L VBG HCO3 20.4 L VBG Total CO2 21.4 L VBG O2 Sat (Calc) 86.0 H VBG Base Excess -3.6 L VBG Potassium 2.5 L* Hgb O2 Saturation Sodium 135.0 Chloride 102.0 Glucose 356 H Lactate 2.2 H FiO2 21.0 Potassium Carbon Dioxide Anion Gap BUN Creatinine Est GFR ( Amer) Est GFR (Non-Af Amer) POC Glucose (mg/dL) 305 H 273 H Random Glucose Calcium Phosphorus Magnesium Total Bilirubin AST ALT Alkaline Phosphatase Total Protein Albumin Globulin Albumin/Globulin Ratio Venous Blood Potassium 2.5 L* 02/28/18 02/28/18 02/28/18 06:14 07:31 08:00 WBC RBC Hgb Hct MCV MCH MCHC RDW Plt Count MPV D-Dimer, Quantitative pCO2 pO2 132 H HCO3 ABG pH ABG Total CO2 ABG O2 Saturation ABG O2 Content ABG Base Excess ABG Hemoglobin ABG Carboxyhemoglobin POC ABG HHb (Measured) ABG Methemoglobin ABG O2 Capacity VBG pH 7.54 H VBG pCO2 32.0 L VBG HCO3 27.4 VBG Total CO2 28.4 H VBG O2 Sat (Calc) 98.7 H VBG Base Excess 5.2 H VBG Potassium 2.6 L Hgb O2 Saturation Sodium 137.0 Chloride 104.0 Glucose 271 H Lactate 1.9 FiO2 21.0 Potassium Carbon Dioxide Anion Gap BUN Creatinine Est GFR ( Amer) Est GFR (Non-Af Amer) POC Glucose (mg/dL) 284 H 278 H Random Glucose Calcium Phosphorus Magnesium Total Bilirubin AST ALT Alkaline Phosphatase Total Protein Albumin Globulin Albumin/Globulin Ratio Venous Blood Potassium 2.6 L 02/28/18 02/28/18 02/28/18 08:00 09:37 11:00 WBC RBC Hgb Hct MCV MCH MCHC RDW Plt Count MPV D-Dimer, Quantitative 358 H pCO2 pO2 97 H HCO3 ABG pH ABG Total CO2 ABG O2 Saturation ABG O2 Content ABG Base Excess ABG Hemoglobin ABG Carboxyhemoglobin POC ABG HHb (Measured) ABG Methemoglobin ABG O2 Capacity VBG pH 7.48 H VBG pCO2 34.0 L VBG HCO3 25.3 VBG Total CO2 26.3 VBG O2 Sat (Calc) 99.0 H VBG Base Excess 2.2 H VBG Potassium 3.2 L Hgb O2 Saturation Sodium 138 136.0 Chloride 99 103.0 Glucose 262 H Lactate 1.5 FiO2 21.0 Potassium 2.7 L* Carbon Dioxide 26 Anion Gap 15 BUN 23 H Creatinine 0.7 Est GFR ( Amer) > 60 Est GFR (Non-Af Amer) > 60 POC Glucose (mg/dL) Random Glucose 248 H Calcium 7.9 L Phosphorus Magnesium Total Bilirubin AST ALT Alkaline Phosphatase Total Protein Albumin Globulin Albumin/Globulin Ratio Venous Blood Potassium 3.2 L EKG/Cardiology Studies: Cardiology / EKG Studies 02/27/18 17:55 EKG [ELECTROCARDIOGRAM] Stat Comment: Reason For Exam: tachycardia Critical Care Progress Note - Nutrition Nutrition: Nutrition Category Date Time Status Consistent Carbohydrate [DIET] Diets 02/28/18 Breakfast Ordered Attending/Attestation - Attestation I have personally seen and examined this patient.: Yes I have fully participated in the care of the patient.: Yes I have reviewed all pertinent clinical information: Yes Notes (Text): 02/28/18 14:33 The patient was seen and examined at the bedside. Patient care was discussed with resident Medical records, lab studies were reviewed and management issues were discussed and formulated. Last 24H events reviewed. Agree with above treatment plans as outlined in ' note with addition of the following: DKA \ Hypokalemia \ Hypophosphatemia \ Candidiasis -hemodynamic monitoring to maintain MAP>65 -f\u ECho to assess baseline LV function -o2 supplementation to maintain Spo2>90 Pao2>60; currently comfortable on NC -f\u Bun\Cr and U\o; continue IVF -continue fluconazole as per ID team -off Insulin drip as anion gap closed -home insulin regiment restarted by endocrine team -monitor and replace e-lites -PO diet (diabetic) and aspiration precautions -DVT\PUD prophylaxis CCM f\u time 27min
--- NOTE | 2018-02-28 11:39 | PN ---
DATE: 02/28/2018 SUBJECTIVE: She is now in the Intensive Care Unit. She had an endoscopy yesterday where they showed [place] in the esophagus and also bad gastritis, esophagitis and now she also had a pH of 7 and she is going through diabetic ketoacidosis again. She is not feeling well, but she is starting to eat a little bit better. PHYSICAL EXAMINATION: VITAL SIGNS: She has a 98.3 temp, 107 pulse, 130/58 blood pressure. HEENT: Head is atraumatic, normocephalic. HEART: Regular rate. LUNGS: Decreased breath sounds, but clear. ABDOMEN: Soft. Positive bowel sounds, nontender at this time. EXTREMITIES: No edema. MEDICATIONS: She is currently on Altace, which is on hold; Cardizem; Diflucan, which is helping the candidiasis; her own insulin; lactated Ringer's; Levemir; Lopressor; potassium replacement; pantoprazole; Reglan; vitamin A and Zofran. LABORATORY DATA: She has a 138 sodium; potassium 2.7, potassium was replaced; BUN 22; creatinine 0.7; GFR is greater than 60; sugar is 248; calcium is 7.9. Last blood gas: PH is now up to 7.48, which is better. Her white count is 16.4, hemoglobin 10.8, hematocrit 30.7, platelets of 251. ASSESSMENT AND PLAN: She is being seen by Infectious Disease, Endocrinology, GI, Pulmonary, manager home. We will check her labs tomorrow, replace potassium. She is starting to improve clinically with the medications. Hopefully, it will continue. [place]. Alberto Hernandez DO
--- NOTE | 2018-02-28 14:08 | PN ---
DATE: 02/28/2018 ENDOCRINOLOGY FOLLOWUP NOTE LOCATION: In ICU 128, room 2. This is a 62-year-old female with recent uncontrolled type 1 insulin-dependent diabetes with protracted and persistent vomiting and upper abdominal pain and actually metabolically deteriorated to overt diabetic ketoacidosis yesterday and was transferred to ICU for closer metabolic and hemodynamic management. She received vigorous IV hydration and was actually receiving sodium bicarbonate in D5 and half-normal saline as ordered running at 200 mL/hour as given. She also was placed on an intensive insulin therapy with an insulin drip infusion with hourly glucose testing and continuous insulin running per the DKA algorithm as ordered. Her glucose levels overnight are fluctuating and have ranged from 305-337 mg/dL. Her latest chemistry showed a BUN of 25, sodium 139, potassium 2.6, chloride 101, CO2 is 21 at this time, anion gap is 19, glucose is 328, and creatinine 0.9. So, at this time, we will discontinue now the insulin drip infusion and switch her over now to her usual and physiologic basal and bolus insulin drug combination at a much lower dosing as discussed with the ICU medical staff. We will lower the Humalog to 6 units subcu t.i.d. before meals to start this morning and also give her a stat dose of Lantus at 12 units subcu now. We will also give her another dose tonight of 12 units as ordered at bedtime. We will continue the same coverage scale as ordered and obtain serial chemistries and supplement accordingly as needed. She is receiving right now potassium chloride IV supplementation was actually 6 runs to be given today. We will switch her IV fluids to lactated Ringer's solution running at 150 mL/hour as ordered. We will obtain serial chemistries and supplement accordingly as needed. Emotional reassurance was accorded to the patient and also the plan of care was discussed with the patient at bedside and has been encouraged once again to partake of any solid food if at all possible and also increase fluid intake as given. We will follow. Naye Gutierrez MD
--- NOTE | 2018-02-28 14:30 | NM ---
Date of service: 02/28/2018 COMPARISON: 02/27/2018 TECHNIQUE: 30.2 mCi technetium 99-m DTPA aerosol. 5.3 mCI technetium 99-m MAA administered intravenously. FINDINGS: VENTILATION COMPONENT: Normal. PERFUSION COMPONENT: Normal. IMPRESSION: Lowprobability ventilation perfusion scan for pulmonary embolism.
[2018-02-28 15:43] LABS: BLOOD UREA NITROGEN 19 mg/dL (7-21); CALCIUM 7.6 mg/dL (8.4-10.5); GFR AFRICAN-AMERICAN > 60; GFR NON-AFRICAN AMERICAN > 60
[2018-02-28 15:58] LABS: TROPONIN I 1.68 ng/mL
[2018-02-28 15:59] LABS: CK MB% 2.3 % (2.5-3.0); CK-MB 12.6 ng/mL (0.0-3.6)
[2018-02-28] MEDS: Enoxaparin 80 mg Syringe SC SCH (17:09)
--- NOTE | 2018-02-28 20:28 | CON ---
DATE: 02/28/2018 PULMONARY CONSULTATION LOCATION: ICU. HISTORY OF PRESENT ILLNESS: This is a 62-year-old woman who came from the [employer] with nausea, vomiting, fatigue and shortness of breath. She was found to have DKA. There is no previous history of such. She is now in the Intensive Care Unit. She had an upper endoscopy which revealed esophageal candidiasis. She was in respiratory distress yesterday and was evaluated by the coping machine operator, Dr. Asher, in the Intensive Care Unit. PAST MEDICAL HISTORY: Hypertension and diabetes. SOCIAL HISTORY: There is no smoking history. No alcohol or illicit drugs. FAMILY HISTORY: HTH, CAD OUTPATIENT MEDICATIONS: Include Protonix, insulin, Reglan, Cardizem, and metoprolol. ALLERGIES: NONE. REVIEW OF SYSTEMS: Dyspnea noted. Nausea, vomiting and fatigue also noted. All other systems negative. PHYSICAL EXAMINATION: GENERAL: The patient is awake and alert, in the Intensive Care Unit, in no acute distress. VITAL SIGNS: Stable. Blood pressure 128/84, heart rate 90, afebrile at 98.6, O2 sat of 100% on 3 liters of nasal cannula. HEENT: Normocephalic, atraumatic. Eyes: PERRL. EOMs full. Conjunctivae pink. NECK: Supple. No jugular venous distention. No lymphadenopathy. No bruit. HEART: Regular rhythm. S1, S2 without murmur, gallop, or rub. LUNGS: Clear to percussion and auscultation. ABDOMEN: Soft. Bowel sounds normoactive without mass, guarding, or rebound. No organomegaly. EXTREMITIES: Reveal no clubbing, cyanosis, or edema. NEUROLOGIC: No focal findings. SKIN: Dry; intact. LABORATORY DATA: White count 13,000. Electrolytes normal. BUN 20, creatinine 1.1, sugar more than 500. Chest x-ray, no acute infiltrates. EKG, sinus tach, nonspecific ST-T wave changes. ASSESSMENT; 1. Diabetic ketoacidosis. 2. Shortness of breath, unknown etiology. 3. Dehydration. The patient was placed on BiPAP to help with her respiratory status during the night. She is off BiPAP now and is comfortable. She is on DVT prophylaxis. PLAN: Case discussed with the coping machine operator, no acute intervention is required at this time. Will suggest V/Q scan if the arterial blood gases supportive. D-dimer has been ordered to look for signs of possible pulmonary embolism, but this is unlikely based on clinical findings. Thank you for the opportunity to allow me to follow this patient. We will follow closely with you while the patient is in the Intensive Care Unit. Jarrod Benton MD MTDD
[2018-02-28 21:18] LABS: BLOOD UREA NITROGEN 16 mg/dL (7-21); CALCIUM 7.5 mg/dL (8.4-10.5); GFR AFRICAN-AMERICAN > 60; GFR NON-AFRICAN AMERICAN > 60
[2018-02-28 21:33] LABS: CK MB% 1.5 % (2.5-3.0); CK-MB 7.2 ng/mL (0.0-3.6); TROPONIN I 0.94 ng/mL
[2018-02-28] MEDS ORDERED: Potassium Chloride 20 mEq ER Tab PO ONE (21:53)
[2018-03-01 04:18] LABS: HEMOGLOBIN 10.8 g/dL (12.0-16.0); MEAN CELL VOLUME 84.6 fl (80.0-105.0); MEAN CORPUSCULAR HEMOGLOBIN 29.7 pg (25.0-35.0); MEAN CORPUSCULAR HGB CONC 35.1 g/dl (31.0-37.0); MEAN PLATELET VOLUME 10.9 fl (7.0-11.0); RBC 3.64 10^6/uL (3.5-6.1); RED CELL DISTRIBUTION WIDTH 14.7 % (11.5-14.5)
[2018-03-01 04:22] LABS: WHITE BLOOD COUNT 12.3 10^3/ul (4.5-11.0)
[2018-03-01 04:37] LABS: ALB/GLOB RATIO 1.2 (1.1-1.8); ALBUMIN 3.1 g/dL (3.0-4.8); ALT/SGPT 38 U/L (7-56); AST/SGOT 41 U/L (14-36); BLOOD UREA NITROGEN 14 mg/dL (7-21); CALCIUM 7.7 mg/dL (8.4-10.5); GFR AFRICAN-AMERICAN > 60; GFR NON-AFRICAN AMERICAN > 60
[2018-03-01 05:02] LABS: CK MB% 1.5 % (2.5-3.0); CK-MB 5.4 ng/mL (0.0-3.6); TROPONIN I 0.66 ng/mL
[2018-03-01] MEDS: Pantoprazole 40 mg EC Tab PO SCH (05:53)
[2018-03-01] MEDS: Enoxaparin 80 mg Syringe SC SCH (05:53)
[2018-03-01] MEDS: Lactated Ringer's 1,000 ML IV SCH (06:08)
[2018-03-01] MEDS ORDERED: Potassium Chloride 20 mEq ER Tab PO ONE ×2 (06:19→06:28)
[2018-03-01 06:22] LABS: ARTERIAL BLOOD GAS HCO3 22.2 mmol/L (21-28); ARTERIAL BLOOD GAS HEMOGLOBIN 13.1 g/dL (11.7-17.4); ARTERIAL BLOOD GAS O2 CONTENT 17.2 ML/dl (15-23); ARTERIAL BLOOD GAS O2 SAT 95.8 % (95-98); ARTERIAL BLOOD GAS PCO2 32 mm/Hg (35-45); ARTERIAL BLOOD GAS PH 7.45 (7.35-7.45); ARTERIAL BLOOD GAS TCO2 23.2 mmol.L (22-28)
--- NOTE | 2018-03-01 08:26 | PN ---
DATE: 02/28/2018 Doris dictbobby. Chris Ochoa MD [facility] # [id number]
[2018-03-01] MEDS: HUMALOG KWIK SC SCH ×2 (08:28→12:47)
--- NOTE | 2018-03-01 09:09 | CP.PCM.PN ---
<Anthony Cadet - Last Filed: 03/01/18 09:05> Subjective - Date & Time of Evaluation Date of Evaluation: 03/01/18 Time of Evaluation: 07:00 - Subjective Subjective: PGY-4 GI Fellow Prog Note Pt lyinging in bed when seen this AM. States N/V improved but feels overall fatigued. Cardiology and pt discussing possible cath after found to have troponin elevation. 5 point ROS negative other than stated above Objective - Vital Signs/Intake and Output Vital Signs (last 24 hours): Temp Pulse Resp BP Pulse Ox 98.7 F 105 H 19 160/87 H 99 02/28/18 16:00 03/01/18 08:40 03/01/18 08:20 03/01/18 08:30 03/01/18 08:40 Intake and Output: 03/01/18 03/01/18 06:59 18:59 Intake Total 2000 Output Total 1800 Balance 200 - Medications Medications: Current Medications Aspirin (Aspirin Chewable) 81 mg PO DAILY [facility] Last Admin: 02/28/18 20:23 Dose: 81 mg Atorvastatin Calcium (Lipitor) 40 mg PO DIN [facility] Last Admin: 02/28/18 17:10 Dose: 40 mg Clopidogrel Bisulfate (Plavix) 75 mg PO DAILY [facility] Diltiazem HCl (Cardizem Cd) 120 mg PO DAILY [facility] Last Admin: 02/28/18 11:22 Dose: 120 mg Enoxaparin Sodium (Lovenox) 70 mg SC Q12H [facility] PRN Reason: Protocol Last Admin: 03/01/18 05:53 Dose: 70 mg Fluconazole (Diflucan) 100 mg PO DAILY [facility] PRN Reason: Protocol Stop: 03/27/18 23:59 Last Admin: 02/28/18 11:22 Dose: 100 mg Home Med (Home Med) 20 unit SC HS [facility] Home Med (Home Med) 12 unit SC AC [facility] Last Admin: 03/01/18 08:28 Dose: Not Given Lactated Ringer's (Lactated Ringer's) 1,000 mls @ 150 mls/hr IV .Q6H40M [facility] Last Admin: 03/01/18 06:08 Dose: 150 mls/hr Insulin Human Lispro (Humalog Low) 0 units SC ACHS [facility] PRN Reason: Protocol Last Admin: 02/28/18 22:03 Dose: Not Given Metoclopramide HCl (Reglan) 10 mg IVP ACHS [facility] Last Admin: 03/01/18 07:13 Dose: 10 mg Metoprolol Tartrate (Lopressor) 25 mg PO BID [facility] Last Admin: 02/28/18 17:10 Dose: 25 mg Ondansetron HCl (Zofran Inj) 4 mg IVP Q4H PRN PRN Reason: Nausea/Vomiting Last Admin: 02/28/18 11:31 Dose: 4 mg Pantoprazole Sodium (Protonix Ec Tab) 40 mg PO 0600 [facility] Ramipril (Altace) 1.25 mg PO DAILY [facility] Last Admin: 02/28/18 14:33 Dose: 1.25 mg Vitamin A (Vitamin A & D Oint Ud Foilpak) 1 ea TOP Q2 PRN PRN Reason: Dry mouth - Labs Labs: 03/01/18 04:00 03/01/18 04:00 - Constitutional Appears: No Acute Distress, Other (fatigued) - Head Exam Head Exam: ATRAUMATIC, NORMAL INSPECTION - Eye Exam Eye Exam: EOMI. absent: Scleral icterus - Respiratory Exam Respiratory Exam: NORMAL BREATHING PATTERN. absent: Accessory Muscle Use, Wheezes - Cardiovascular Exam Cardiovascular Exam: REGULAR RHYTHM. absent: Bradycardia, Tachycardia - GI/Abdominal Exam GI & Abdominal Exam: Soft. absent: Distended, Firm, Guarding, Rigid, Tenderness , Rebound Assessment and Plan - Assessment and Plan (Free Text) Assessment: Assessment: Waleska Esophagitis, LA Grade C Esophagitis: Seen on EGD 02/27/18. Started on PPI and fluconazole. DKA: Improving Abdominal pain, nausea, vomiting - Improved. Due to above. Possible ACS: Cardiology follow, possible cardiac cath Plan: - Cont Fluconazole 100 mg daily for total of 14 days - Cont Pantoprazole 40 mg daily x 28 days - Advance diet to diabetic, small frequent meals as tolerated - Anti-emetic therapy PRN - Follow up endocrine recommendations, strict glucose control both inpatient and outpatient - No further planned GI interventions, will sign off case. Patient will require routine outpatient elective screening colonoscopy, office contact information provided to patient. Please reconsult as necessary, thank you. Pt seen and examined with Dr. Kaur <Elia Kaur - Last Filed: 03/01/18 14:02> Objective - Vital Signs/Intake and Output Vital Signs (last 24 hours): Temp Pulse Resp BP Pulse Ox 98.2 F 92 H 17 145/75 98 03/01/18 12:00 03/01/18 12:10 03/01/18 12:10 03/01/18 12:00 03/01/18 12:10 Intake and Output: 03/01/18 03/01/18 06:59 18:59 Intake Total 2000 Output Total 1800 Balance 200 - Labs Labs: 03/01/18 04:00 03/01/18 04:00 Attending/Attestation - Attestation I have personally seen and examined this patient.: Yes I have fully participated in the care of the patient.: Yes I have reviewed all pertinent clinical information, including history, physical exam and plan: Yes Notes (Text): 03/01/18 13:58 This is a 62 yr old F with epigastric pain s/p EGD that showed Waleska Esophagitis, LA Grade C Esophagitis. Seen on rounds this am and she denies of heartburn and vomiting. Continue fluconazole for total 14 days and PPI for 3 months. Diet as tolerated. Has huge component of anxiety. she is scheduled for cardiac cath. - No further planned GI interventions, will sign off case. Patient will require routine outpatient elective screening colonoscopy, office contact information provided to patient. Please reconsult as necessary, thank you.
[2018-03-01] MEDS: diltiaZEM 120 mg/24 Hours CD Cap PO SCH (09:38)
[2018-03-01] MEDS: INSULIN LISPRO SC SCH ×2 (09:40→12:47)
[2018-03-01] MEDS ORDERED: Potassium Phosphate 15 MMOLE in Sodium Chloride 0.9% 250 ML IVPB ONE (10:26)
[2018-03-01 12:21] VITALS: BP 145/75; PULSE 92; RESP 17; O2SAT 98
[2018-03-01 12:22] VITALS: TEMP 98.2
--- NOTE | 2018-03-01 12:22 | CARD ---
APPROVED REPORT Date of service: 02/28/2018 EKG Measurement Heart [id number] <Conclusion> Normal sinus rhythm Left bundle branch block Abnormal ECG
--- NOTE | 2018-03-01 12:48 | PN ---
DATE: 03/01/2018 PULMONARY PROGRESS NOTE SUBJECTIVE: The patient was seen and examined at the bedside. She reports less shortness of breath, just fatigued. She knows about elevated levels of troponin. She is also apparently being transferred to a different facility to continue workup and treatment. PHYSICAL EXAMINATION: VITAL SIGNS: Her current vital signs, temperature 98, pulse 100, respirations 20, blood pressure 160/87, pulse oximetry is 99. She is currently on supplemental oxygen and not on any therapy as far as respiratory treatments. HEENT: Head, ears, nose and throat within normal limits. NECK: Supple with no jugular vein distentions. CARDIOVASCULAR: S1, S2. No S3. Regular. PULMONARY: Good bilateral breath sounds. No rhonchi, rales or wheezing. The rest of the exam deferred. LABORATORY DATA: Hemoglobin of 10.8, reduced; WBC is 12.3. Potassium 3.3, sodium 139 and blood sugar elevated at 238. ASSESSMENT: This is a 62-year-old woman, admitted to Intensive Care Unit with currently established diagnosis of Waleska esophagitis as well as elevated enzymes. Rule out acute coronary syndrome. Cardiac catheterization is being entertained. Transferred to a different facility is being entertained as well. We will recheck only as needed since no acute pulmonary pathology is present at this time. The diabetic ketoacidosis resolved and shortness of breath resolved as well. Gaurang Shields MD
--- NOTE | 2018-03-01 13:42 | CP.PCM.PN ---
Subjective - Date & Time of Evaluation Date of Evaluation: 03/01/18 Time of Evaluation: 09:40 - Subjective Subjective: Comfortable, no fevers, not in distress, her SOB is slightly improved, still with some nausea but a little better. Objective - Vital Signs/Intake and Output Vital Signs (last 24 hours): Temp Pulse Resp BP Pulse Ox 98.7 F 109 H 26 H 153/77 H 92 L 02/28/18 16:00 03/01/18 04:20 03/01/18 04:20 03/01/18 04:01 03/01/18 04:20 Intake and Output: 02/28/18 03/01/18 18:59 06:59 Intake Total 2927 Output Total 1000 Balance 1927 - Medications Medications: Current Medications Aspirin (Aspirin Chewable) 81 mg PO DAILY [facility] Last Admin: 02/28/18 20:23 Dose: 81 mg Atorvastatin Calcium (Lipitor) 40 mg PO DIN [facility] Last Admin: 02/28/18 17:10 Dose: 40 mg Clopidogrel Bisulfate (Plavix) 75 mg PO DAILY [facility] Diltiazem HCl (Cardizem Cd) 120 mg PO DAILY [facility] Last Admin: 02/28/18 11:22 Dose: 120 mg Enoxaparin Sodium (Lovenox) 70 mg SC Q12H [facility] PRN Reason: Protocol Last Admin: 03/01/18 05:53 Dose: 70 mg Fluconazole (Diflucan) 100 mg PO DAILY [facility] PRN Reason: Protocol Stop: 03/27/18 23:59 Last Admin: 02/28/18 11:22 Dose: 100 mg Home Med (Home Med) 20 unit SC HS [facility] Home Med (Home Med) 12 unit SC AC [facility] Lactated Ringer's (Lactated Ringer's) 1,000 mls @ 150 mls/hr IV .Q6H40M [facility] Last Admin: 03/01/18 06:08 Dose: 150 mls/hr Insulin Detemir (Levemir) 6 unit SC STAT [facility] Last Admin: 02/28/18 09:03 Dose: 6 u Insulin Human Lispro (Humalog Low) 0 units SC ACHS [facility] PRN Reason: Protocol Last Admin: 02/28/18 22:03 Dose: Not Given Metoclopramide HCl (Reglan) 10 mg IVP ACHS [facility] Last Admin: 02/28/18 22:09 Dose: 10 mg Metoprolol Tartrate (Lopressor) 25 mg PO BID [facility] Last Admin: 02/28/18 17:10 Dose: 25 mg Ondansetron HCl (Zofran Inj) 4 mg IVP Q4H PRN PRN Reason: Nausea/Vomiting Last Admin: 02/28/18 11:31 Dose: 4 mg Pantoprazole Sodium (Protonix Ec Tab) 40 mg PO 0600,1600 [facility] Last Admin: 03/01/18 05:53 Dose: 40 mg Ramipril (Altace) 1.25 mg PO DAILY [facility] Last Admin: 02/28/18 14:33 Dose: 1.25 mg Vitamin A (Vitamin A & D Oint Ud Foilpak) 1 ea TOP Q2 PRN PRN Reason: Dry mouth - Labs Labs: 03/01/18 04:00 03/01/18 04:00 - Constitutional Appears: Chronically Ill - Head Exam Head Exam: NORMAL INSPECTION - Respiratory Exam Respiratory Exam: Decreased Breath Sounds - Cardiovascular Exam Cardiovascular Exam: +S1, +S2 - GI/Abdominal Exam GI & Abdominal Exam: Soft. absent: Tenderness Assessment and Plan - Assessment and Plan (Free Text) Plan: Assessment consider esophagitis R/O due to Waleska systemic inflammatory response syndrome probably due hyperglycemia R/O DKA in this patient with DM type I with history of Diabetic ketoacidosis, with no evidence of infection shortness of breath R/O due to cardiomyopathy Plan continue to monitor off antibiotics since blood, urine cx negative, CXR is negative, PCT is elevated but no source of bacterial infection noted reviewed EGD findings - continue Diflucan and will follow up biopsy results ( from samples of esophageal and gastric tissues) patient may need further Cardiology work up - reviewed V/Q scan which is low probability for P.E., CXR is negative for infiltrates - as per family, they trying to bring her to [facility] in [facility] where her PMD has privileges reviewed CT A/P which does not show acute findings
--- NOTE | 2018-03-01 14:22 | CP.CCUPN ---
<HadleyDany - Last Filed: 03/01/18 14:47> CCU Subjective - Physician Review Subjective (Free Text): Dany Butcher PGY-1, ICU Progress note for Dr. Asher Pt seen and examined at bedside. Pt was afebrile overnight. Pt reports feeling nauseated, with episodes of dry heaving. Pt still reports some abdominal discomfort in the epigastric area. Pt produced 1800 mL of clear urine in the past 12 hours. Pt denies fever, headache, dizziness, focal weakness, chest pain , shortness of breath, vomiting, diarrhea, numbness or tingling. A 12-point ROS was reviewed and is unremarkable except as stated above. CCU Objective - Vital Signs / Intake & Output Vital Signs (Last 4 hours): Vital Signs Temp Pulse Resp BP Pulse Ox 03/01/18 12:10 92 H 17 98 03/01/18 12:00 98.2 F 95 H 21 145/75 97 03/01/18 11:50 94 H 17 97 03/01/18 11:40 99 H 19 95 03/01/18 11:30 102 H 20 96 03/01/18 11:20 106 H 21 96 03/01/18 11:10 104 H 20 96 03/01/18 11:00 101 H 20 137/74 97 03/01/18 10:50 105 H 19 94 L 03/01/18 10:40 102 H 21 97 03/01/18 10:30 103 H 23 96 03/01/18 10:20 104 H 18 97 Intake and Output (Last 8hrs): Intake & Output 02/28/18 03/01/18 03/01/18 22:59 06:59 14:59 Intake Total 2927 2000 Output Total 1000 1800 Balance 1927 200 Intake: IV 2587 1800 Regular Insulin 187 Right Hand 2400 lr 1800 Oral 340 200 Output: Urine 1000 1800 Urine, Voided 1000 1800 Other: # Bowel Movements 0 - Physical Exam Head: Positive for: Atraumatic, Normocephalic Pupils: Positive for: PERRL Extroacular Muscles: Positive for: EOMI Conjunctiva: Positive for: Normal Mouth: Positive for: Moist Mucous Membranes Respiratory/Chest: Positive for: Rales. Negative for: Respiratory Distress, Accessory Muscle Use Cardiovascular: Positive for: Regular Rate and Rhythm, Murmurs (systolic murmur) Abdomen: Positive for: Normal Bowel Sounds (in all 4 quadrants), Peritoneal Signs. Negative for: Tenderness, Distention Back: Positive for: Normal Inspection Upper Extremity: Positive for: Normal Inspection, NORMAL PULSES (3+ bilaterally) . Negative for: Edema Lower Extremity: Positive for: Normal Inspection, NORMAL PULSES (3+ bilaterally) . Negative for: Edema, CALF TENDERNESS Neurological: Positive for: GCS=15, Speech Normal Skin: Positive for: Warm, Dry, Normal Color Psychiatric: Positive for: Alert, Oriented x 3, Normal Insight, Normal Concentration - Patient Studies Lab Studies: Microbiology Studies 02/23/18 13:56 Blood Culture - Final Blood-Venous NO GROWTH AFTER 5 DAYS 02/23/18 13:56 Blood Culture - Final Blood-Venous NO GROWTH AFTER 5 DAYS Gram Stain - Final TEST NOT PERFORMED Lab Studies 03/01/18 03/01/18 03/01/18 Range/Units 06:00 04:00 04:00 WBC (4.5-11.0) 10^3/ul RBC (3.5-6.1) 10^6/uL Hgb (12.0-16.0) g/dL Hct (36.0-48.0) % MCV (80.0-105.0) fl MCH (25.0-35.0) pg MCHC (31.0-37.0) g/dl RDW (11.5-14.5) % Plt Count (120.0-450.0) 10^3/uL MPV (7.0-11.0) fl pCO2 32 L (35-45) mm/Hg pO2 61.0 L (80-100) mm/Hg HCO3 22.2 (21-28) mmol/L ABG pH 7.45 (7.35-7.45) ABG Total CO2 23.2 (22-28) mmol.L ABG O2 Saturation 95.8 (95-98) % ABG O2 Content 17.2 (15-23) ML/dl ABG Base Excess -1.0 (-2.0-3.0) mmol/L ABG Hemoglobin 13.1 (11.7-17.4) g/dL ABG Carboxyhemoglobin 1.3 (0.5-1.5) % POC ABG HHb (Measured) 4.1 (0-5) % ABG Methemoglobin 1.2 (0.0-3.0) % ABG O2 Capacity 18.0 (16-24) mL/dl Hgb O2 Saturation 93.4 L (95.0-98.0) % FiO2 28.0 % Sodium 139 (132-148) mmol/L Potassium 3.3 L (3.6-5.0) mmol/L Chloride 101 (98-107) mmol/L Carbon Dioxide 24 (21-33) mmol/L Anion Gap 17 (10-20) BUN 14 (7-21) mg/dL Creatinine 0.5 L (0.7-1.2) mg/dl Est GFR ( Amer) > 60 Est GFR (Non-Af Amer) > 60 POC Glucose (mg/dL) (65-110) mg/dL Random Glucose 238 H (70-110) mg/dL Calcium 7.7 L (8.4-10.5) mg/dL Phosphorus 1.7 L (2.5-4.5) mg/dL Magnesium 2.5 H (1.7-2.2) mg/dL Total Bilirubin 0.6 (0.2-1.3) mg/dL AST 41 H (14-36) U/L ALT 38 (7-56) U/L Alkaline Phosphatase 73 (38-126) U/L Lactate Dehydrogenase 709 H (333-699) U/L Total Creatine Kinase 349 H (35-230) U/L CK-MB (CK-2) 5.4 H (0.0-3.6) ng/mL CK-MB (CK-2) % 1.5 L (2.5-3.0) % Troponin I 0.66 H* D ng/mL Total Protein 5.6 L (5.8-8.3) g/dL Albumin 3.1 (3.0-4.8) g/dL Globulin 2.5 gm/dL Albumin/Globulin Ratio 1.2 (1.1-1.8) 03/01/18 02/28/18 02/28/18 Range/Units 04:00 21:00 15:20 WBC 12.3 H D (4.5-11.0) 10^3/ul RBC 3.64 (3.5-6.1) 10^6/uL Hgb 10.8 L (12.0-16.0) g/dL Hct 30.8 L (36.0-48.0) % MCV 84.6 (80.0-105.0) fl MCH 29.7 (25.0-35.0) pg MCHC 35.1 (31.0-37.0) g/dl RDW 14.7 H (11.5-14.5) % Plt Count 212 (120.0-450.0) 10^3/uL MPV 10.9 (7.0-11.0) fl pCO2 (35-45) mm/Hg pO2 (80-100) mm/Hg HCO3 (21-28) mmol/L ABG pH (7.35-7.45) ABG Total CO2 (22-28) mmol.L ABG O2 Saturation (95-98) % ABG O2 Content (15-23) ML/dl ABG Base Excess (-2.0-3.0) mmol/L ABG Hemoglobin (11.7-17.4) g/dL ABG Carboxyhemoglobin (0.5-1.5) % POC ABG HHb (Measured) (0-5) % ABG Methemoglobin (0.0-3.0) % ABG O2 Capacity (16-24) mL/dl Hgb O2 Saturation (95.0-98.0) % FiO2 % Sodium 136 137 (132-148) mmol/L Potassium 3.4 L 3.3 L (3.6-5.0) mmol/L Chloride 100 100 (98-107) mmol/L Carbon Dioxide 24 23 (21-33) mmol/L Anion Gap 16 17 (10-20) BUN 16 19 (7-21) mg/dL Creatinine 0.6 L 0.6 L (0.7-1.2) mg/dl Est GFR ( Amer) > 60 > 60 Est GFR (Non-Af Amer) > 60 > 60 POC Glucose (mg/dL) (65-110) mg/dL Random Glucose 269 H 262 H (70-110) mg/dL Calcium 7.5 L 7.6 L (8.4-10.5) mg/dL Phosphorus 2.0 L 1.9 L (2.5-4.5) mg/dL Magnesium 2.2 2.3 H (1.7-2.2) mg/dL Total Bilirubin (0.2-1.3) mg/dL AST (14-36) U/L ALT (7-56) U/L Alkaline Phosphatase (38-126) U/L Lactate Dehydrogenase 691 697 (333-699) U/L Total Creatine Kinase 466 H 557 H (35-230) U/L CK-MB (CK-2) 7.2 H 12.6 H (0.0-3.6) ng/mL CK-MB (CK-2) % 1.5 L 2.3 L (2.5-3.0) % Troponin I 0.94 H* D 1.68 H* ng/mL Total Protein (5.8-8.3) g/dL Albumin (3.0-4.8) g/dL Globulin gm/dL Albumin/Globulin Ratio (1.1-1.8) 02/28/18 02/28/18 Range/Units 13:54 12:37 WBC (4.5-11.0) 10^3/ul RBC (3.5-6.1) 10^6/uL Hgb (12.0-16.0) g/dL Hct (36.0-48.0) % MCV (80.0-105.0) fl MCH (25.0-35.0) pg MCHC (31.0-37.0) g/dl RDW (11.5-14.5) % Plt Count (120.0-450.0) 10^3/uL MPV (7.0-11.0) fl pCO2 (35-45) mm/Hg pO2 (80-100) mm/Hg HCO3 (21-28) mmol/L ABG pH (7.35-7.45) ABG Total CO2 (22-28) mmol.L ABG O2 Saturation (95-98) % ABG O2 Content (15-23) ML/dl ABG Base Excess (-2.0-3.0) mmol/L ABG Hemoglobin (11.7-17.4) g/dL ABG Carboxyhemoglobin (0.5-1.5) % POC ABG HHb (Measured) (0-5) % ABG Methemoglobin (0.0-3.0) % ABG O2 Capacity (16-24) mL/dl Hgb O2 Saturation (95.0-98.0) % FiO2 % Sodium (132-148) mmol/L Potassium (3.6-5.0) mmol/L Chloride (98-107) mmol/L Carbon Dioxide (21-33) mmol/L Anion Gap (10-20) BUN (7-21) mg/dL Creatinine (0.7-1.2) mg/dl Est GFR ( Amer) Est GFR (Non-Af Amer) POC Glucose (mg/dL) 231 H 224 H (65-110) mg/dL Random Glucose (70-110) mg/dL Calcium (8.4-10.5) mg/dL Phosphorus (2.5-4.5) mg/dL Magnesium (1.7-2.2) mg/dL Total Bilirubin (0.2-1.3) mg/dL AST (14-36) U/L ALT (7-56) U/L Alkaline Phosphatase (38-126) U/L Lactate Dehydrogenase (333-699) U/L Total Creatine Kinase (35-230) U/L CK-MB (CK-2) (0.0-3.6) ng/mL CK-MB (CK-2) % (2.5-3.0) % Troponin I ng/mL Total Protein (5.8-8.3) g/dL Albumin (3.0-4.8) g/dL Globulin gm/dL Albumin/Globulin Ratio (1.1-1.8) Laboratory Results - last 24 hr 02/28/18 02/28/18 02/28/18 12:37 13:54 15:20 WBC RBC Hgb Hct MCV MCH MCHC RDW Plt Count MPV pCO2 pO2 HCO3 ABG pH ABG Total CO2 ABG O2 Saturation ABG O2 Content ABG Base Excess ABG Hemoglobin ABG Carboxyhemoglobin POC ABG HHb (Measured) ABG Methemoglobin ABG O2 Capacity Hgb O2 Saturation FiO2 Sodium 137 Potassium 3.3 L Chloride 100 Carbon Dioxide 23 Anion Gap 17 BUN 19 Creatinine 0.6 L Est GFR ( Amer) > 60 Est GFR (Non-Af Amer) > 60 POC Glucose (mg/dL) 224 H 231 H Random Glucose 262 H Calcium 7.6 L Phosphorus 1.9 L Magnesium 2.3 H Total Bilirubin AST ALT Alkaline Phosphatase Lactate Dehydrogenase 697 Total Creatine Kinase 557 H CK-MB (CK-2) 12.6 H CK-MB (CK-2) % 2.3 L Troponin I 1.68 H* Total Protein Albumin Globulin Albumin/Globulin Ratio 02/28/18 03/01/18 03/01/18 21:00 04:00 04:00 WBC 12.3 H D RBC 3.64 Hgb 10.8 L Hct 30.8 L MCV 84.6 MCH 29.7 MCHC 35.1 RDW 14.7 H Plt Count 212 MPV 10.9 pCO2 pO2 HCO3 ABG pH ABG Total CO2 ABG O2 Saturation ABG O2 Content ABG Base Excess ABG Hemoglobin ABG Carboxyhemoglobin POC ABG HHb (Measured) ABG Methemoglobin ABG O2 Capacity Hgb O2 Saturation FiO2 Sodium 136 139 Potassium 3.4 L 3.3 L Chloride 100 101 Carbon Dioxide 24 24 Anion Gap 16 17 BUN 16 14 Creatinine 0.6 L 0.5 L Est GFR ( Amer) > 60 > 60 Est GFR (Non-Af Amer) > 60 > 60 POC Glucose (mg/dL) Random Glucose 269 H 238 H Calcium 7.5 L 7.7 L Phosphorus 2.0 L Magnesium 2.2 Total Bilirubin 0.6 AST 41 H ALT 38 Alkaline Phosphatase 73 Lactate Dehydrogenase 691 709 H Total Creatine Kinase 466 H 349 H CK-MB (CK-2) 7.2 H 5.4 H CK-MB (CK-2) % 1.5 L 1.5 L Troponin I 0.94 H* D 0.66 H* D Total Protein 5.6 L Albumin 3.1 Globulin 2.5 Albumin/Globulin Ratio 1.2 03/01/18 03/01/18 04:00 06:00 WBC RBC Hgb Hct MCV MCH MCHC RDW Plt Count MPV pCO2 32 L pO2 61.0 L HCO3 22.2 ABG pH 7.45 ABG Total CO2 23.2 ABG O2 Saturation 95.8 ABG O2 Content 17.2 ABG Base Excess -1.0 ABG Hemoglobin 13.1 ABG Carboxyhemoglobin 1.3 POC ABG HHb (Measured) 4.1 ABG Methemoglobin 1.2 ABG O2 Capacity 18.0 Hgb O2 Saturation 93.4 L FiO2 28.0 Sodium Potassium Chloride Carbon Dioxide Anion Gap BUN Creatinine Est GFR ( Amer) Est GFR (Non-Af Amer) POC Glucose (mg/dL) Random Glucose Calcium Phosphorus 1.7 L Magnesium 2.5 H Total Bilirubin AST ALT Alkaline Phosphatase Lactate Dehydrogenase Total Creatine Kinase CK-MB (CK-2) CK-MB (CK-2) % Troponin I Total Protein Albumin Globulin Albumin/Globulin Ratio EKG/Cardiology Studies: Cardiology / EKG Studies 02/28/18 16:01 EKG [ELECTROCARDIOGRAM] Stat Comment: Reason For Exam: elevated troponin Fingerstick Blood Sugar Results: 241 Review of Systems - Review of Systems All systems: reviewed and no additional remarkable complaints except (as per HPI ) Critical Care Progress Note - Prophylaxis GI Prophylaxis GI: PPI - Prophylaxis DVT Prophylaxis DVT: SCDs - Nutrition Nutrition: Nutrition Category Date Time Status Consistent Carbohydrate [DIET] Diets 02/28/18 Breakfast Ordered Assessment/Plan - Assessment and Plan (Free Text) Assessment: This is a 62 year old female who was brought to the ED on 02/23 by EMS from a cruise ship. Pt was diagnosed with DKA while on a cruise ship coming back from [facility]. Pt was being managed on the floor for DKA with Insulin SC. She also received a endoscopy due to nausea and vomiting, which showed candidiasis esophagitis and gastritis. Pt began feeling worse on 02/27, and was noted to be in severe metabolic acidosis (pH 7.03, pCO2 11, bicarb 5), lactate 5.9 on VBG. Pt has leukocytosis as well, ID following. Pt also noted to be in HARSHA, as Cr has increased by 0.5 in the past 48 hours, to 1.1. Pt was transferred to the ICU for DKA management with insulin gtt. DDimer elevated at 535, bilateral lower extremity doppler were negative for DVT. Pt is currently on her home insulin regimen including lantus 24 units qhs and humulog 6 units AC. Echo was done which showed hypokinesis and decreased systolic function, trops and ekg were done to r/o ACS. Trops were found to be elevated at 1.68, with questionable ST changes and LBBB (which were confirmed with PMD to be chronic). Cardiology recommended ASA, Plavix, Lovenox, Betablocker, and catheterization in the morning. Pt refused catheterization and would like to be transferred to [facility] for further care. Plan: Neuro: - continue to monitor for mental status changes - Pt is AAOx3 at baseline Cardio: - Pt is hemodynamically stable - Will f/u with official echo read - Will continue to maintain MAP>65 mmHg - continue ASA, plavix, lovenox, Betablocker, Statin - Ramipril dose increased to 2.5 - Catheterization recommended by Cardio - Pt is refusing catheterization at this facility, would like to transfer to [facility] Pulm: - ABG shows resolution of acidemia - maintain spo2>90% - HoB > 30 degrees - CXR (02/27) shows no active disease - f/u with pulm recs GI: - Diflucan, PTX as per GI for candidiasis esophagitis, gastritis seen on EGD () - continue CCD - zofran PRN Endo:t - maintain euglycemia - Lantus 24 units qhs, humulog 6 units AC as per Endo - Accuchecks ACHS - Endo recs appreciated Renal: - HARSHA is resolved; Cr is 0.4 - maintain euglycemia - LR is discontinued due to rales on lung examination - continue to replete electrolytes as needed ID: - continue antifungal as per GI - Blood culture x2 negative for the past 5 days - Urine culture final shows no growth - ID recs appreciated Heme: - H/H stable PPX: PTX for GI; SCDs for vte Dispo: Benefits and risks of transportation was discussed with the pt. Both pt and family remain adamant about the transfer. Case reviewed and discussed with attending physician, Dr. Asher <Jose Asher - Last Filed: 03/01/18 17:12> CCU Objective - Vital Signs / Intake & Output Intake and Output (Last 8hrs): Intake & Output 03/01/18 03/01/18 03/01/18 06:59 14:59 22:59 Intake Total 2000 Output Total 1800 Balance 200 Intake: IV 1800 lr 1800 Oral 200 Output: Urine 1800 Urine, Voided 1800 - Patient Studies Lab Studies: Microbiology Studies 02/23/18 13:56 Blood Culture - Final Blood-Venous NO GROWTH AFTER 5 DAYS 02/23/18 13:56 Blood Culture - Final Blood-Venous NO GROWTH AFTER 5 DAYS Gram Stain - Final TEST NOT PERFORMED Lab Studies 03/01/18 03/01/18 03/01/18 Range/Units 06:00 04:00 04:00 WBC (4.5-11.0) 10^3/ul RBC (3.5-6.1) 10^6/uL Hgb (12.0-16.0) g/dL Hct (36.0-48.0) % MCV (80.0-105.0) fl MCH (25.0-35.0) pg MCHC (31.0-37.0) g/dl RDW (11.5-14.5) % Plt Count (120.0-450.0) 10^3/uL MPV (7.0-11.0) fl pCO2 32 L (35-45) mm/Hg pO2 61.0 L (80-100) mm/Hg HCO3 22.2 (21-28) mmol/L ABG pH 7.45 (7.35-7.45) ABG Total CO2 23.2 (22-28) mmol.L ABG O2 Saturation 95.8 (95-98) % ABG O2 Content 17.2 (15-23) ML/dl ABG Base Excess -1.0 (-2.0-3.0) mmol/L ABG Hemoglobin 13.1 (11.7-17.4) g/dL ABG Carboxyhemoglobin 1.3 (0.5-1.5) % POC ABG HHb (Measured) 4.1 (0-5) % ABG Methemoglobin 1.2 (0.0-3.0) % ABG O2 Capacity 18.0 (16-24) mL/dl Hgb O2 Saturation 93.4 L (95.0-98.0) % FiO2 28.0 % Sodium 139 (132-148) mmol/L Potassium 3.3 L (3.6-5.0) mmol/L Chloride 101 (98-107) mmol/L Carbon Dioxide 24 (21-33) mmol/L Anion Gap 17 (10-20) BUN 14 (7-21) mg/dL Creatinine 0.5 L (0.7-1.2) mg/dl Est GFR ( Amer) > 60 Est GFR (Non-Af Amer) > 60 Random Glucose 238 H (70-110) mg/dL Calcium 7.7 L (8.4-10.5) mg/dL Phosphorus 1.7 L (2.5-4.5) mg/dL Magnesium 2.5 H (1.7-2.2) mg/dL Total Bilirubin 0.6 (0.2-1.3) mg/dL AST 41 H (14-36) U/L ALT 38 (7-56) U/L Alkaline Phosphatase 73 (38-126) U/L Lactate Dehydrogenase 709 H (333-699) U/L Total Creatine Kinase 349 H (35-230) U/L CK-MB (CK-2) 5.4 H (0.0-3.6) ng/mL CK-MB (CK-2) % 1.5 L (2.5-3.0) % Troponin I 0.66 H* D ng/mL Total Protein 5.6 L (5.8-8.3) g/dL Albumin 3.1 (3.0-4.8) g/dL Globulin 2.5 gm/dL Albumin/Globulin Ratio 1.2 (1.1-1.8) 03/01/18 02/28/18 Range/Units 04:00 21:00 WBC 12.3 H D (4.5-11.0) 10^3/ul RBC 3.64 (3.5-6.1) 10^6/uL Hgb 10.8 L (12.0-16.0) g/dL Hct 30.8 L (36.0-48.0) % MCV 84.6 (80.0-105.0) fl MCH 29.7 (25.0-35.0) pg MCHC 35.1 (31.0-37.0) g/dl RDW 14.7 H (11.5-14.5) % Plt Count 212 (120.0-450.0) 10^3/uL MPV 10.9 (7.0-11.0) fl pCO2 (35-45) mm/Hg pO2 (80-100) mm/Hg HCO3 (21-28) mmol/L ABG pH (7.35-7.45) ABG Total CO2 (22-28) mmol.L ABG O2 Saturation (95-98) % ABG O2 Content (15-23) ML/dl ABG Base Excess (-2.0-3.0) mmol/L ABG Hemoglobin (11.7-17.4) g/dL ABG Carboxyhemoglobin (0.5-1.5) % POC ABG HHb (Measured) (0-5) % ABG Methemoglobin (0.0-3.0) % ABG O2 Capacity (16-24) mL/dl Hgb O2 Saturation (95.0-98.0) % FiO2 % Sodium 136 (132-148) mmol/L Potassium 3.4 L (3.6-5.0) mmol/L Chloride 100 (98-107) mmol/L Carbon Dioxide 24 (21-33) mmol/L Anion Gap 16 (10-20) BUN 16 (7-21) mg/dL Creatinine 0.6 L (0.7-1.2) mg/dl Est GFR ( Amer) > 60 Est GFR (Non-Af Amer) > 60 Random Glucose 269 H (70-110) mg/dL Calcium 7.5 L (8.4-10.5) mg/dL Phosphorus 2.0 L (2.5-4.5) mg/dL Magnesium 2.2 (1.7-2.2) mg/dL Total Bilirubin (0.2-1.3) mg/dL AST (14-36) U/L ALT (7-56) U/L Alkaline Phosphatase (38-126) U/L Lactate Dehydrogenase 691 (333-699) U/L Total Creatine Kinase 466 H (35-230) U/L CK-MB (CK-2) 7.2 H (0.0-3.6) ng/mL CK-MB (CK-2) % 1.5 L (2.5-3.0) % Troponin I 0.94 H* D ng/mL Total Protein (5.8-8.3) g/dL Albumin (3.0-4.8) g/dL Globulin gm/dL Albumin/Globulin Ratio (1.1-1.8) Laboratory Results - last 24 hr 02/28/18 03/01/18 03/01/18 21:00 04:00 04:00 WBC 12.3 H D RBC 3.64 Hgb 10.8 L Hct 30.8 L MCV 84.6 MCH 29.7 MCHC 35.1 RDW 14.7 H Plt Count 212 MPV 10.9 pCO2 pO2 HCO3 ABG pH ABG Total CO2 ABG O2 Saturation ABG O2 Content ABG Base Excess ABG Hemoglobin ABG Carboxyhemoglobin POC ABG HHb (Measured) ABG Methemoglobin ABG O2 Capacity Hgb O2 Saturation FiO2 Sodium 136 139 Potassium 3.4 L 3.3 L Chloride 100 101 Carbon Dioxide 24 24 Anion Gap 16 17 BUN 16 14 Creatinine 0.6 L 0.5 L Est GFR ( Amer) > 60 > 60 Est GFR (Non-Af Amer) > 60 > 60 Random Glucose 269 H 238 H Calcium 7.5 L 7.7 L Phosphorus 2.0 L Magnesium 2.2 Total Bilirubin 0.6 AST 41 H ALT 38 Alkaline Phosphatase 73 Lactate Dehydrogenase 691 709 H Total Creatine Kinase 466 H 349 H CK-MB (CK-2) 7.2 H 5.4 H CK-MB (CK-2) % 1.5 L 1.5 L Troponin I 0.94 H* D 0.66 H* D Total Protein 5.6 L Albumin 3.1 Globulin 2.5 Albumin/Globulin Ratio 1.2 03/01/18 03/01/18 04:00 06:00 WBC RBC Hgb Hct MCV MCH MCHC RDW Plt Count MPV pCO2 32 L pO2 61.0 L HCO3 22.2 ABG pH 7.45 ABG Total CO2 23.2 ABG O2 Saturation 95.8 ABG O2 Content 17.2 ABG Base Excess -1.0 ABG Hemoglobin 13.1 ABG Carboxyhemoglobin 1.3 POC ABG HHb (Measured) 4.1 ABG Methemoglobin 1.2 ABG O2 Capacity 18.0 Hgb O2 Saturation 93.4 L FiO2 28.0 Sodium Potassium Chloride Carbon Dioxide Anion Gap BUN Creatinine Est GFR ( Amer) Est GFR (Non-Af Amer) Random Glucose Calcium Phosphorus 1.7 L Magnesium 2.5 H Total Bilirubin AST ALT Alkaline Phosphatase Lactate Dehydrogenase Total Creatine Kinase CK-MB (CK-2) CK-MB (CK-2) % Troponin I Total Protein Albumin Globulin Albumin/Globulin Ratio Critical Care Progress Note - Nutrition Nutrition: Nutrition Category Date Time Status Consistent Carbohydrate [DIET] Diets 02/28/18 Breakfast Ordered Attending/Attestation - Attestation I have personally seen and examined this patient.: Yes I have fully participated in the care of the patient.: Yes I have reviewed all pertinent clinical information: Yes Notes (Text): 03/01/18 17:09 62 yo female with resolved DKA. Was supposed to have cardiac cath today, however [place] [facility] [place] [facility]. It was arranged and patient was transferred to [facility]. ccm time 40 min
--- NOTE | 2018-03-01 14:57 | PN ---
DATE: 03/01/2018 SUBJECTIVE: I saw her in the Intensive Care Unit. She is feeling tired. She is supposed to go for cardiac cath today because the troponin is elevated as after having an upper endoscopy where we found candidiasis and esophagitis following the DKA where the blood sugars were elevated, she has also been having chronic nausea and vomiting. Also this morning, when I saw her, she was having dry heaves right in front of me. She is really having a very less time here, status post the cruise ship with DKA, it started on the cruise ship. She is also telling me that she might not go for the catheterization with three positive troponins. I tried to convince her to go and make sure the heart is okay and might need stenting. She is having an NSTEMI. PHYSICAL EXAMINATION: VITAL SIGNS: Temperature 98.7, 109 pulse, 26 respiratory rate, 153/77 blood pressure, 92% O2 sat. HEENT: Head atraumatic, normocephalic. Throat is moist. HEART: Regular rate. LUNGS: Decreased breath sounds, but clear. ABDOMEN: Soft. EXTREMITIES: No edema. MEDICATIONS: She is currently on Altace, aspirin, Cardizem, Diflucan, insulin, lactated Ringers, Lipitor, Lopressor, Lovenox, Plavix, Protonix, Reglan, vitamin A and Zofran. LABORATORY DATA: She has a white count of 12.3, it is better, it was high as 16.4; 10.8 hemoglobin; 30.8 hematocrit with 212 platelets. She has a 139 sodium; potassium 3.3, we will replace potassium; BUN 14; creatinine 0.5, GFR is greater than 60, sugar is 238. Calcium is 7.7, a little better, phosphorus 1.7, magnesium 2.5, total bili is 0.6, AST is 41, ALT is 38, alkaline phosphatase 73. Lactated dehydrogenase is 709. Total creatine kinase is 349. Troponins 1.68, 0.94 and 0.66, they are coming down. She has consults with numerous doctors, Endocrinology for DKA, Infectious Disease for infection, Gastroenterology for nausea and vomiting, Pulmonary for shortness of breath and Dr. Sylvester for the positive troponins. We will continue with aggressive treatment and care in the Intensive Care Unit. She has multiple issues; hopefully, she will go for the cardiac catheterization today with Dr. Sylvester. I have discussed this with the patient at length. Alberto Hernandez DO MARINA
--- NOTE | 2018-03-01 15:12 | CON ---
DATE: 03/01/2018 CARDIOLOGY CONSULTATION HISTORY: The patient is a 62-year-old woman who came off the [employer] cruise ship with nausea and vomiting. She was found to be in DKA. Her hospital course is complicated by esophageal candidiasis, for which she has been treated. The patient's past medical history includes hypertension and diabetes mellitus. In the hospital, she was found to have an elevated troponin, although she denies chest pain. SOCIAL HISTORY: No smoking history. FAMILY HISTORY: There is a strong family history for CAD with mother and father with coronary artery disease. REVIEW OF SYSTEMS: The 14-point review of systems was reviewed in detail. No angina, no dyspnea. No edema in the lower extremities. No previous myocardial infarction. No previous documented coronary artery disease. No PND. PHYSICAL EXAMINATION: VITAL SIGNS: Blood pressure is 160/87, heart rate is approximately 100. NECK: Negative JVD. LUNGS: Without rales. HEART: Reveal S1, S2. EXTREMITIES: Without edema. DATA: EKG shows a left bundle-branch block. Laboratories reveal a troponin of 1.68, trending down to 0.66 today. BUN and creatinine are unremarkable. The glucose is 238, potassium is 3.3, white count is 12.3 with a hemoglobin of 10.8. IMPRESSION: 1. Non-ST elevation myocardial infarction. 2. Diabetic ketoacidosis. 3. Esophageal candidiasis. 4. Diabetes mellitus. 5. Hypertension. 6. High probability for the significant coronary artery disease. 7. Anemia. Given these findings, the patient was started on subcu Lovenox, aspirin as well as Plavix. I had an extensive discussion with the patient and family about her need for cardiac catheterization. Arrangements were made for cardiac catheterization this morning. However, the patient and family refused and at the advice of their physician, she will be transferred to [facility] today for continued care. Risks and benefits were discussed in detail. Benjamin Sylvester MD
--- NOTE | 2018-03-01 17:39 | PN ---
DATE: 03/01/2018 SUBJECTIVE: The patient was seen and examined at the bedside. She is comfortable. She talks in full sentences. She is not in respiratory or otherwise distress. She reports she has been a little bit tired. No chest pain, no shortness of breath. OBJECTIVE: VITAL SIGNS: Heart rate 109, respiratory rate 18, oxygen saturation 97% on 2 L nasal cannula, blood pressure 153/77. HEAD AND NECK: Atraumatic. LUNGS: Clear to auscultation bilaterally. HEART: Regular rate and rhythm. S1 and S2 normal. ABDOMEN: Soft, nontender, and nondistended. MUSCULOSKELETAL: A 1+ bilateral pedal and ankle edema. NEUROLOGIC: The patient moves all extremities spontaneously. SKIN: Moist. PSYCHIATRIC: The patient is alert, awake, and oriented x3. LABORATORY DATA: WBC 12.3, hemoglobin 10.8, and platelet count 212. Sodium 139, potassium 3.3, chloride 101, carbon dioxide 24. BUN 14, creatinine 0.4, glucose 238. Phosphorus 1.7, magnesium 2.5. MEDICATIONS: Aspirin, Lipitor, Plavix, Lovenox, Diflucan, lactated Ringer, Reglan, metoprolol, Zofran p.r.n., potassium supplementation, and ramipril. ASSESSMENT AND PLAN: A 62-year-old lady who initially presented with diabetic ketoacidosis with severe metabolic acidosis and dehydration. She was fluid resuscitated with resolution of metabolic acidosis. She was found to have acute coronary event. The patient was started on dual antiplatelet therapy, statins, beta-blockers, and therapeutic anticoagulation. She was offered cardiac catheterization and in fact was scheduled to go today; however, she refused to go to cardiac catheterization here at [facility] and requested transfer to [facility] The patient was instructed about risks of delaying the procedure including potential complication of life-threatening arrhythmias, worsening of hemodynamic status, or . She verbalized understanding; however, insisted on not going to cardiac catheterization at [facility] today. We will continue to target euvolemia, euglycemia, normothermia, and oxygen saturation more than 90%. We will continue with deep venous thrombosis and gastric prophylaxis. Addnedum: Dr. Cosme Weaver accepted patient to [facility] and patient was transfered there ccm time 40 min Jose Asher MD [facility] # [id number] MARINA
--- NOTE | 2018-03-01 18:35 | CARD ---
APPROVED REPORT Date of service: 02/28/2018 EXAM: Two-dimensional and M-mode echocardiogram with Doppler and color Doppler. INDICATION EVALUATE SYSTOLIC MURMUR/LVFX 2D DIMENSIONS Left Atrium (2D)4.5 (1.6-4.0cm)IVSd0.9 (0.7-1.1cm) LVDd5.4 (3.9-5.9cm)PWd1.0 (0.7-1.1cm) LVDs4.7 (2.5-4.0cm)FS (%) 12.5 % LVEF (%)26.4 (>50%) M-Mode DIMENSIONS Aortic Root3.50 (2.2-3.7cm)Aortic Cusp Exc.1.80 (1.5-2.0cm) Aortic Valve AoV Peak Xstptwaj275.0cm/Denisse Peak GR.9mmHg Mitral Valve MV E Scnbanfr908.0cm/sMV A Fvgfhdtr359.0cm/sE/A ratio0.8 TDI Lateral E' Peak V7.90cm/sMedial E' Peak V5.85cm/sE/Lateral E'13.7 E/Medial E'18.5 Pulmonary Valve PV Peak Nppqhwie65.8cm/sPV Peak Grad.1mmHg Tricuspid Valve TR Peak Swwhivmr333oh/sRAP [id number] Peak Gr.22mmHg [id number] LEFT VENTRICLE The Left Ventricle is borderline dilated. There is normal left ventricular wall thickness. The systolic function is severely impaired.EF-25% There is moderate to severe There is moderate to severe hypokinesis in the apical anterior wall. global hypokinesis of the left ventricle. Transmitral Doppler flow pattern is Grade III-reversible restrictive diastolic dysfunction. No left ventricle thrombus noted on this study. There is no ventricular septal defect visualized. There is no left ventricular aneurysm. There is no mass noted in the left ventricle. RIGHT VENTRICLE The right ventricle is normal size. There is normal right ventricular wall thickness. The right ventricular systolic function is normal. ATRIA The left atrium is mildly dilated. The right atrium size is normal. The interatrial septum is intact with no evidence for an atrial septal defect. AORTIC VALVE The aortic valve is calcified but opens well. The aortic valve is moderately sclerotic. There is trace to mild aortic regurgitation. There is no aortic valvular stenosis. There is no aortic valvular vegetation. MITRAL VALVE The mitral valve is thickened but opens well. Mitral regurgitation is trace to mild. There is no mitral valve stenosis. There is no evidence of mitral valve prolapse. TRICUSPID VALVE The tricuspid valve leaflets are thickened , but open well. There is trace to mild tricuspid regurgitation.RVSP-32 mmof hg. There is no tricuspid valve stenosis. There is no tricuspid valve prolapse or vegetation. PULMONIC VALVE The pulmonic valve is borderline thickened. There is trace pulmonic valvular regurgitation. There is no pulmonic valvular stenosis. GREAT VESSELS The aortic root is normal in size. The ascending aorta is normal in size. The pulmonary artery is normal. The IVC is normal in size and collapses >50% with inspiration. PERICARDIAL EFFUSION There is no pleural effusion. There is no pericardial effusion. <Conclusion> The Left Ventricle is borderline dilated. There is normal left ventricular wall thickness. The systolic function is severely impaired.EF-25% There is trace to mild aortic regurgitation. Mitral regurgitation is trace to mild. There is trace to mild tricuspid regurgitation.RVSP-32 mmof hg. There is trace pulmonic valvular regurgitation. The IVC is normal in size and collapses >50% with inspiration. There is no pericardial effusion. No vegetation or thrombus noted.
--- NOTE | 2018-03-01 19:08 | PN ---
DATE: 03/01/2018 ENDOCRINOLOGY FOLLOWUP NOTE LOCATION: CCU 129, room 1. SUBJECTIVE: This is a 62-year-old female with recent uncontrolled type 1 insulin-dependent diabetes who was transferred to ICU because of resurgence of metabolic acidosis and intractable vomiting episodes and has since then improved clinically and metabolically as noted overnight. Her glucose levels have ranged from 238-241 mg/dL. Her latest chemistry showed a BUN of 14, sodium 139, potassium 3.3, chloride 101, CO2 24, glucose 238 and creatinine 0.5. She is finally out of metabolic acidosis at this time as noted. So, we will highly recommend to at least finish off her current IV infusion and then obtain serial chemistries and supplement accordingly as needed. She has been encouraged to increase the potassium intake on the outpatient with bananas and apples as noted. Moreover, we will continue her modified basal and bolus insulin regimen with Humalog given as 12 units subcu t.i.d. before meals as ordered. We will also increase the Lantus to 20 units subcu at bedtime daily as given. Her upper endoscopy findings showed the presence of candidiasis and has been treated with Diflucan medications as noted. She will follow with her primary doctor and electrical line worker for outpatient medical and diabetic management. Naye Gutierrez MD
[2018-03-01] MEDS ORDERED: LANTUS SC SCH (22:00)
[2018-03-02] MEDS ORDERED: Pantoprazole 40 mg EC Tab PO SCH (06:00)
== END 2018-03-01 12:30 | disposition short-term general hospital (02) | DRG 637 ==
LOC: ED 07:55 → ERH 11:55 → 3RNO 15:57 → ICU 02-27 17:47 → CCU 02-28 13:09
PROVIDERS: ADMIT Family Medicine; ATTEND Family Medicine
PROC: 0DB68ZX Excision of Stomach, Via Natural or Artificial Opening Endoscopic, Diagnostic (ICD-10-PCS; 2018-02-27)
PROC: 5A09357 Assistance with Respiratory Ventilation, Less than 24 Consecutive Hours, Continuous Positive Airway Pressure (ICD-10-PCS; 2018-02-27)
PROC: 0DB58ZX Excision of Esophagus, Via Natural or Artificial Opening Endoscopic, Diagnostic (ICD-10-PCS; principal; 2018-02-27 09:45)
DX: E10.10 Type 1 diabetes mellitus with ketoacidosis without coma (principal); I21.4 Non-ST elevation (NSTEMI) myocardial infarction; B37.81 Candidal esophagitis; R65.10 Systemic inflammatory response syndrome (SIRS) of non-infectious origin without acute organ dysfunction; E86.0 Dehydration; I10 Essential (primary) hypertension; K21.0 Gastro-esophageal reflux disease with esophagitis; E78.5 Hyperlipidemia, unspecified; K29.70 Gastritis, unspecified, without bleeding; E87.6 Hypokalemia; E83.39 Other disorders of phosphorus metabolism; F41.9 Anxiety disorder, unspecified; Z79.4 Long term (current) use of insulin